=== PATIENT | female | born 1955 ===

== ENCOUNTER → 2020-10-19 08:02 | Outpatient (BNVA) | payer OTHER, SELFPAY | PROVIDERS: PCP Internal Medicine; Visit Provider Internal Medicine Endocrinology, Diabetes & Metabolism | DX: Z13.89 Encounter for screening for other disorder (principal) | CPT/HCPCS: Q3014 ==

== ENCOUNTER 2020-10-27 07:23 | Outpatient (REF) | payer OTHER, SELFPAY ==
[2020-10-27 08:41] LABS: Estimated Average Glucose 131 mg/dL; Hemoglobin A1c % 6.2 %
[2020-10-27 08:48] LABS: Alanine Aminotransferase 13 U/L (0-31); Albumin Level 4.3 g/dL (3.5-5.0); Alkaline Phosphatase 53 U/L (39-117); Anion Gap 14 (12-20); Aspartate Amino Transferase 13 U/L (5-31); Bilirubin Total 0.7 mg/dL (0.0-1.0); Blood Urea Nitrogen 13 mg/dL (9-16); Calcium 9.7 mg/dL (8.4-10.2); Carbon Dioxide 30 mmol/L (22-29); Chloride 100 mmol/L (96-108); Cholesterol 164 mg/dL; Estimated Glomerular Filt Rate > 60; Glucose Fasting 128 mg/dL (60-99); HDL Cholesterol 52 mg/dL; LDL Cholesterol Calculated 92 mg/dl; Potassium 4.3 mmol/l (3.3-5.1); Sodium 140 mmol/L (135-145); Triglycerides 102 mg/dL
[2020-10-27 09:21] LABS: Creatinine Urine 154.58 mg/dL; Microalbum/Creatinine Ratio Ur 21.9 ug/mg cr
[2020-10-27 10:02] LABS: Vitamin B12 672 pg/mL (200-900)
[2020-10-28 10:38] LABS: LDL Cholesterol Direct 95 mg/dL (<100)
== END 2020-10-27 07:24 | disposition home or self-care (01) ==
LOC: HO.LAB 07:23
PROVIDERS: PCP Internal Medicine; Visit Provider Internal Medicine Endocrinology, Diabetes & Metabolism
DX: E11.65 Type 2 diabetes mellitus with hyperglycemia (principal)
CPT/HCPCS: 36415; 80053; 80061; 82043; 82607; 83036; 83721

== ENCOUNTER 2021-05-17 09:08 | Emergency (ER) | payer OTHER, SELFPAY ==
--- NOTE | ~2021-05-17 | XR_ITS ---
EXAMINATION: XR LUMBOSACRAL SPINE CLINICAL INFORMATION: Fall, trauma, pain COMPARISON: None TECHNIQUE: Three views of the lumbosacral spine. FINDINGS: There is normal lumbar segmentation with 5 nonrib-bearing lumbar vertebrae of normal height and normal lumbar lordosis. There is gentle dextrocurvature lumbar spine. There is no lumbar vertebral compression, visible fracture, spondylolisthesis, or destructive process. There are multilevel vertebral spurring. No focal disc narrowing. The SI joints and visualized sacrum are unremarkable. XR/XR lumbar spine 2-3V IMPRESSION: 1. No vertebral compression, visible fracture, or spondylolisthesis. 2. Mild dextrocurvature. Vertebral spurring.
--- NOTE | ~2021-05-17 | XR_ITS ---
EXAMINATION: XR HIP, RIGHT CLINICAL INFORMATION: Fall, trauma, pain COMPARISON: None TECHNIQUE: AP pelvis is performed along with AP and frog-lateral projections right hip. FINDINGS: There is no fracture or dislocation. The bony pelvis appears intact. The SI joints and pubis show no diastases. Soft tissue planes around both hips is unremarkable. Bowel gas appears normal. XR/XR hip RT w PEL1V IMPRESSION: No fracture or dislocation.
[2021-05-17 09:18] VITALS: BP 134/56; PULSE 96; RESP 14; TEMP 36.4; O2SAT 99; BMI 24.7
--- NOTE | 2021-05-17 10:46 | ED.FALL ---
HPI - Fall General Chief Complaint: Fall Stated Complaint: fall - back pain Time Seen by Provider: 05/17/21 09:41 History of Present Illness HPI Narrative: Patient complains of right-sided back and hip pain the back pain radiates to the right foot with no weakness or incontinence or changes to bowel and bladder no head injury She has had similar pain from sciatica on the past The trip and fall was on a wet floor at home where she slipped and fell back onto her buttocks and lower back 5 days ago, there was no head injury no neck pain no weakness no loss of sensation Related Data Previous Rx's Medication Instructions Recorded blood sugar diagnostic #100 ea 10/19/20 dulaglutide 0.75 mg/0.5 mL 0.75 mg SUBCUT QWEEK 30 Days #2.5 10/19/20 subcutaneous pen injector ml (Trulicity) insulin glargine 100 unit/mL (3 10 unit SUBCUT BEDTIME 30 Days #6 10/19/20 mL) subcutaneous pen ml lancets 28 gauge #100 ea 10/19/20 metformin 500 mg tablet,extended 500 mg PO BID 90 Days #180 tab 10/19/20 release 24 hr pen needle, diabetic 31 gauge x #50 ea 10/19/20 5/16 (1st Tier Unifine Pentips) cyanocobalamin (vitamin B-12) 500 500 mcg PO DAILY 30 Days #30 tab 10/25/20 mcg tablet ezetimibe 10 mg tablet 10 mg PO DAILY #90 tab 02/03/21 acetaminophen 500 mg tablet 1,000 mg PO QID PRN #30 tab 05/17/21 cyclobenzaprine 5 mg tablet 5 mg PO TID PRN #14 tab 05/17/21 ibuprofen 600 mg tablet 600 mg PO Q6H PRN #20 tab 05/17/21 lidocaine 5 % topical patch 1 patch TOPICAL DAILY PRN #15 ea 05/17/21 Allergies Allergy/AdvReac Type Severity Reaction Status Date / Time atorvastatin [ATORVASTATIN] AdvReac Intermediate MYALGIA, Unverified 06/23/20 18:27 myalgias lisinopril [LISINOPRIL] AdvReac Intermediate DIZZINESS, Unverified 06/23/20 18:27 diziness Review of Systems Review of Systems: Positive for right-sided back and hip pain Negatives are no headache no head injury no neck pain no numbness or weakness, no difficulty breathing no abdominal pain no dysuria no frequency no incontinence no changes to bowel or bladder, no skin rash, no loss of sensation, no muscle weakness, no fever no chills Yes all other systems are reviewed and are negative [facility] Past Medical History Medical History (Updated 05/17/21 @ 10:59 by RAMON Evangelista) B12 deficiency Diabetes type 2, uncontrolled 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 Microalbuminuria Surgical History (Updated 10/19/20 @ 08:05 by ASHLEY Granados) Hx of eye surgery Hx of myomectomy Hx of tubal ligation Family History Family History (Updated 10/18/20 @ 11:24 by Iram Crespo LPN) Father Hypertension Mother Diabetes Alzheimer disease Maternal Grandmother Diabetes Social History Social History (Updated 10/18/20 @ 11:24 by Iram Crespo LPN) Advance Directives: No Advance Directives Information Provided: No Physical Exam Vital Signs: Vital Signs: Last Vital Signs Temp 97.5 F 05/17/21 09:18 Pulse 96 05/17/21 09:18 Resp 14 05/17/21 09:18 BP 134/56 L 05/17/21 09:18 Pulse Ox 99 05/17/21 09:18 Body Mass Index 24.7 General appearance is no acute distress Head is normocephalic atraumatic Neck is supple and nontender Respiratory no distress Abdomen soft nontender The back had right gluteal and right lower lumbar tenderness, there was some tenderness mildly over the right hip, the skin was normal there was no bruising no wounds no rashes, pain was reproduced with movement and with putting weight on the right leg, sensation and motor function were intact Extremities there was some mild tenderness over the right hip although there was a good range of motion, other extremities were normal with normal range of motion Neuro there was no focal motor or sensory deficit, patient can not ambulate with a mild limp, can come up on her toes and can walk on her heels Course Course Course Narrative: Patient with likely sciatic flare after a fall 5 days ago with no changes to bowel or bladder no weakness x-rays negative of both lumbar spine right hip and pelvis and is discharged home Discharge Plan Discharge Clinical Impression: Sciatica Qualifiers: Laterality: right Qualified Code(s): M54.31 - Sciatica, right side Patient Disposition: Home, Self-Care Additional Instructions: X-rays did not show any broken bone in her hip pelvis or spine Your symptoms are probably a flare up of a pinched nerve in her back sending pain down to her foot Use medications as prescribed and follow closely with primary doctor as physical therapy is sometimes helpful Return any time for weakness, incontinence, any worse condition or any concerns Prescriptions: New lidocaine 5 % adhesive patch,medicated 1 patch topical DAILY PRN (Reason: Back pain) Qty: 15 RF: 0 cyclobenzaprine 5 mg tablet 5 mg PO TID PRN (Reason: muscle spasm) Qty: 14 RF: 0 ibuprofen 600 mg tablet 600 mg PO Q6H PRN (Reason: pain) Qty: 20 RF: 0 acetaminophen 500 mg tablet 1,000 mg PO QID PRN (Reason: pain) Qty: 30 RF: 0 No Action cyanocobalamin (vitamin B-12) 500 mcg tablet 500 mcg PO DAILY 30 Days Qty: 30 RF: 6 ezetimibe 10 mg tablet 10 mg PO DAILY Qty: 90 RF: 1 Trulicity 0.75 mg/0.5 mL pen injector 0.75 mg subcut QWEEK 30 Days Qty: 2.5 RF: 6 insulin glargine 100 unit/mL (3 mL) insulin pen 10 unit subcut BEDTIME 30 Days Qty: 6 RF: 6 metformin 500 mg tablet extended release 24 hr 500 mg PO BID 90 Days Qty: 180 RF: 1 (DME) lancets 28 gauge misc See Rx Instructions ea topical .MEDSUPPLY Qty: 100 RF: 6 (DME) blood sugar diagnostic Strip See Rx Instructions strip Not Applicable BID Qty: 100 RF: 6 (DME) pen needle, diabetic [1st Tier Unifine Pentips] 31 gauge x 5/16 needle See Rx Instructions .ROUTE .MEDSUPPLY Qty: 50 RF: 11
[2021-05-17] MEDS: Acetaminophen 325 MG TABLET 650 MG PO (11:08)
[2021-05-17] MEDS: Ketorolac Tromethamine 15 MG/ML VIAL 30 MG IM (11:10)
== END 2021-05-17 11:18 | disposition home or self-care (01) ==
PROVIDERS: Emergency Provider Emergency Medicine Emergency Medical Services; PCP Internal Medicine
DX: M54.31 Sciatica, right side (principal); E11.9 Type 2 diabetes mellitus without complications; Z79.4 Long term (current) use of insulin
CPT/HCPCS: 72100; 73502; 96372; 99283; 99284; J1885

== ENCOUNTER 2021-05-31 06:25 | Outpatient (REF) | payer OTHER, SELFPAY ==
[2021-05-31 07:01] LABS: MANUAL DIFF FLAG NO
[2021-05-31 07:09] LABS: Basophils Percent Auto 0.3 % (0-2); Eosinophils Absolute Auto 0.2 X10*3/uL (0.0-0.4); Eosinophils Percent Auto 2.1 % (0-4); Hematocrit 36.2 % (37-47); Hemoglobin 12.2 g/dl (12.0-16.0); Imm Gran Abs Auto 0.02 X10*3/uL (0.00-0.03); Imm Gran Pct Auto 0.3 % (0.0-0.4); Lymphocytes Absolute Auto 2.2 X10*3/uL (1.2-4.9); Lymphocytes Percent Auto 29.5 % (20-40); Mean Corpuscular HGB Conc 33.7 g/dl (31.0-35.0); Mean Corpuscular Hemoglobin 29.6 pg (27.0-33.0); Mean Corpuscular Volume 87.9 fL (80-98); Mean Platelet Volume 10.6 fL (9.4-12.3); Monocytes Absolute Auto 0.4 X10*3/uL (0.1-1.2); Monocytes Percent Auto 5.4 % (2-11); Neutrophils Absolute Auto 4.8 X10*3/uL (2.0-8.3); Neutrophils Percent Auto 62.4 % (45-73); Platelet Count 294 X10*3/uL (160-400); Red Blood Count 4.12 X10*6/uL (4.20-5.50); Red Cell Distribution Width 12.6 % (11.0-16.0); White Blood Count 7.6 X10*3/uL (4.8-10.8)
[2021-05-31 07:37] LABS: Alanine Aminotransferase 11 U/L (0-31); Albumin Level 4.1 g/dL (3.5-5.0); Alkaline Phosphatase 46 U/L (39-117); Anion Gap 11 (12-20); Aspartate Amino Transferase 11 U/L (5-31); Bilirubin Total 0.6 mg/dL (0.0-1.0); Blood Urea Nitrogen 13 mg/dL (9-16); Calcium 9.5 mg/dL (8.4-10.2); Carbon Dioxide 29 mmol/L (22-29); Chloride 102 mmol/L (96-108); Cholesterol 162 mg/dL; Estimated Glomerular Filt Rate > 60; Glucose Fasting 173 mg/dL (60-99); HDL Cholesterol 55 mg/dL; LDL Cholesterol Calculated 90 mg/dl; Potassium 4.3 mmol/L (3.3-5.1); Sodium 138 mmol/L (135-145); Total Protein 6.7 g/dL (6.5-8.0); Triglycerides 89 mg/dL
[2021-05-31 08:58] LABS: Folate 12.3 ng/mL (> or = 4.0); Vitamin B12 1612 pg/mL (200-900)
[2021-05-31 09:36] LABS: Creatinine Urine 112.98 mg/dL; Microalbum/Creatinine Ratio Ur 11.5 ug/mg cr
[2021-06-04 13:16] LABS: Vitamin D 25-OH, D2 <4 ng/mL; Vitamin D 25-OH, D3 31 ng/mL; Vitamin D 25-OH, Total 31 ng/mL (30-100)
== END 2021-05-31 06:26 | disposition home or self-care (01) ==
LOC: HO.LAB 06:25
PROVIDERS: PCP Internal Medicine; Visit Provider Internal Medicine
DX: E11.65 Type 2 diabetes mellitus with hyperglycemia (principal); E55.9 Vitamin D deficiency, unspecified; E53.8 Deficiency of other specified B group vitamins; E78.5 Hyperlipidemia, unspecified; D64.9 Anemia, unspecified
CPT/HCPCS: 36415; 80053; 80061; 82043; 82306; 82607; 82746; 85025

== ENCOUNTER 2021-06-19 09:41 | Outpatient (REF) | payer OTHER, SELFPAY | END 2021-06-19 09:42 | disposition home or self-care (01) | LOC: HO.LAB 09:41 | PROVIDERS: PCP Internal Medicine; Visit Provider Internal Medicine | DX: Z20.822 Contact with and (suspected) exposure to COVID-19 (principal) | CPT/HCPCS: C9803; U0003; U0005 ==

== ENCOUNTER 2021-10-28 08:01 | Emergency (ER) | payer OTHER, SELFPAY ==
--- NOTE | ~2021-10-28 | XR_ITS ---
EXAMINATION: XR KNEE, LEFT CLINICAL INFORMATION: Fall. Pain. COMPARISON: None TECHNIQUE: Four views of the left knee. FINDINGS: Bone alignment is normal. There is a transverse nondisplaced fracture of the patella. No other fracture is seen. Joint spaces are normal. There is a large joint effusion. XR/XR knee LT 4V IMPRESSION: Nondisplaced transverse patellar fracture. Large joint effusion.
--- NOTE | 2021-10-28 09:39 | ED_ITS ---
HPI - Extremity Injury (Lower) General Chief Complaint: Extremity Injury, Lower Stated Complaint: Fall/knee pain Time Seen by Provider: 10/28/21 09:19 Source: patient and spanish medical interpreter Mode of arrival: wheelchair Limitations: language barrier History of Present Illness HPI Narrative: 66-year-old female with a history of diabetes, high cholesterol here with reports of left knee pain after a mechanical fall landing directly on the knee yesterday. Tripped on shoelaces. Patient denies any hitting of the head or loss of consciousness. Since the fall the pain has been swollen and painful. No anticoagulation use. Pain is worsened with weight-bearing. Related Data Previous Rx's Medication Instructions Recorded blood sugar diagnostic #100 ea 10/19/20 lancets 28 gauge #100 ea 10/19/20 pen needle, diabetic 31 gauge x #50 ea 10/19/2002/19 (1st Tier Unifine Pentips) cyanocobalamin (vitamin B-12) 500 500 mcg PO DAILY 30 Days #30 tab 10/25/20 mcg tablet acetaminophen 500 mg tablet 1,000 mg PO QID PRN #30 tab 05/17/21 cyclobenzaprine 5 mg tablet 5 mg PO TID PRN #14 tab 05/17/21 ibuprofen 600 mg tablet 600 mg PO Q6H PRN #20 tab 05/17/21 lidocaine 5 % topical patch 1 patch TOPICAL DAILY PRN #15 ea 05/17/21 insulin glargine 100 unit/mL (3 12 unit (0.12 mL) SUBCUT BEDTIME 05/30/21 mL) subcutaneous pen 30 Days #3.6 ml metformin 500 mg tablet,extended 500 mg PO BID 90 Days #180 tab 07/10/21 release 24 hr ezetimibe 10 mg tablet 10 mg PO DAILY #90 tab 07/31/21 dulaglutide 0.75 mg/0.5 mL 0.75 mg (0.5 mL) SUBCUT QWEEK 30 09/05/21 subcutaneous pen injector Days #2.5 ml (Trulicity) naproxen 500 mg tablet 500 mg PO BID #20 tab 10/28/21 oxycodone 5 mg tablet 5 mg PO Q8H PRN #5 tab 10/28/21 Allergies Allergy/AdvReac Type Severity Reaction Status Date / Time atorvastatin [ATORVASTATIN] AdvReac Intermediate MYALGIA, Verified 10/23/21 09:36 myalgias lisinopril [LISINOPRIL] AdvReac Intermediate DIZZINESS, Verified 10/23/21 09:36 diziness Review of Systems Review of Systems: Yes all other systems are reviewed and are negative Constitutional: Constitutional: Reports no additional constitutional complaints, Denies body ache(s), Denies chills, Denies fever(s), Denies headache(s) and Denies weakness Eyes: Eyes: Reports no additional eye complaints and Denies change in vision ENT: Reports system reviewed and no additional complaints, except as documented, Denies dizziness, Denies headache(s), Denies nasal congestion, Denies nasal discharge and Denies neck pain Cardiovascular: Cardiovascular: Reports no additional cardiovascular complaints, Denies chest pain, Denies leg edema and Denies dyspnea Respiratory: Respiratory: Reports no additional respiratory complaints, Denies cough and Denies dyspnea Gastrointestinal: Gastrointestinal: Reports no additional gastrointestinal complaints, Denies abdominal pain, Denies diarrhea, Denies nausea and Denies vomiting Genitourinary: Genitourinary: Reports no additional female genitourinary complaints and Denies urinary incontinence Musculoskeletal: Musculoskeletal: Reports no additional musculoskeletal complaints, Denies back pain, Reports arthralgias, Denies joint swelling, Denies neck pain, Denies numbness and Denies tingling Integumentary/Breasts: Skin/Breast: Reports system reviewed and no additional complaints, except as docu and Denies rash Neurologic: Denies Abnormal speech present, Denies dizziness, Denies headache(s), Denies numbness, Denies tingling and Denies weakness [facility] Past Medical History Attestation statement: The following information was validated with the patient. 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 Microalbuminuria Right hip pain Surgical History Hx of eye surgery Hx of myomectomy Hx of tubal ligation Family History Family History Father Hypertension Mother Diabetes Alzheimer disease Mental health disorder Maternal Grandmother Diabetes Social History Social History Housing: Apartment Patient Tobacco Use Status: Never used Tobacco e-Cigarette/Vaping Use: Never Used Second Hand Smoke Exposure: No Advance Directives: No Advance Directives Information Provided: No service: No 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al status: disabled Physical Exam Vital Signs: Vital Signs: Last Vital Signs Temp 98 F 10/28/21 09:45 Pulse 87 10/28/21 09:45 Resp 19 10/28/21 09:45 BP 152/72 H 10/28/21 09:45 Pulse Ox 99 10/28/21 09:45 BMI result Body Mass Index 27.4 Const: General: cooperative, healthy appearing, comfortable and no acute distress Orientation/consciousness: patient oriented x3 Limitations: no limitations HENMT: Head: Yes normal to inspection Ears: hearing grossly normal bilaterally General nose exam: Normal external nose present Face and sinus: Yes normal facial exam Mouth: Normal oral and palatal mucosa present Throat: Yes posterior oropharynx normal Eyes: General: appearance normal, both eyes and all related structures Pupils: Equal, round and reactive pupils present Neck: Neck: Yes normal visual inspection, Yes full ROM, Yes no lymphadenopathy and Yes no meningeal signs Chest: Chest palpation & inspection: normal inspection of the chest Resp: Effort & Inspection: normal respiratory effort Auscultation: clear to auscultation bilaterally Cardio: Rate: regular rate Rhythm: regular rhythm Peripheral pulses: Peripheral pulses 2+ throughout GI: Inspection: Yes normal to inspection Palpation (GI): Soft to palpation and nontender Auscultation: normal bowel sounds Back/Spine/Pelvis: Thoracic/Lumbar Spine: thoracic and lumbar spine normal to inspection Skin: General skin exam: no rashes or lesions noted Neuro: General: patient oriented x3, no meningeal signs, no focal motor deficits and normal sensation to monofilament Cranial nerves: Yes CN's II-XII intact bilaterally, Yes Equal, round and reactive pupils present, Yes Bilaterally intact EOM present, Yes Nystagmus not present, Yes Normal facial strength present and Yes Midline tongue present Cognition (Neuro): normal cognition Speech: No Abnormal speech present Gait exam (Neuro): Normal gait present Motor exam (neuro): 5/5 motor strength present throughout Sensory Exam: Normal double simultaneous stimulation for sensation Extrem: Other: The left knee there is swelling and tenderness. Range of motion is limited due to pain. Patient is able to extend the extremity. Neurovascularly intact distally General: Yes normal to inspection Course Course Course Narrative: 66-year-old female here with left knee pain after mechanical fall. Will check x-rays, provide analgesia 1045-x-ray show a nondisplaced transverse patellar fracture. There is a large joint effusion which is likely traumatic. The patient we placed in a knee immobilizer and given crutches for ambulation. Discussed case with orthopedics will follow up with patient next week. Reviewed rice. Reviewed worrisome signs and symptoms of when to return to the emergency department. Comfortable discharge home. MDM - Extremity Injury (Lower) Medical Records Attestation: I reviewed the patient's medical records. Lab Data Attestation: I reviewed the patient's lab results. Imaging Data knee xray: Attestation: I personally reviewed and interpreted this imaging study as follows: Radiologist's impression: FINDINGS: Bone alignment is normal. There is a transverse nondisplaced fracture of the patella. No other fracture is seen. Joint spaces are normal. There is a large joint effusion. XR/XR knee LT 4V IMPRESSION: Nondisplaced transverse patellar fracture. Large joint effusion. ? Procedures Procedure Narrative Procedure Narrative: Knee immobilizer, crutches Discharge Plan Discharge Clinical Impression: Left patella fracture Patient Disposition: Home, Self-Care Instructions: Patellar Fracture (ED) Additional Instructions: Use el inmovilizador de rodilla mientras se mueve. Mientras descansa, retire el inmovilizador. Eleve la extremidad sobre almohadas. Aplicar hielo 20 minutos encendido y 20 minutos apagado. Llame a ortopedia el lunes para adriane starr de seguimiento. [place] el medicamento con alimentos. Prescriptions: New naproxen 500 mg tablet 500 mg PO BID Qty: 20 RF: 0 oxycodone 5 mg tablet 5 mg PO Q8H PRN (Reason: pain) Qty: 5 RF: 0 No Action cyanocobalamin (vitamin B-12) 500 mcg tablet 500 mcg PO DAILY 30 Days Qty: 30 RF: 6 metformin 500 mg tablet extended release 24 hr 500 mg PO BID 90 Days Qty: 180 RF: 1 ezetimibe 10 mg tablet 10 mg PO DAILY Qty: 90 RF: 1 Trulicity 0.75 mg/0.5 mL pen injector 0.75 mg subcut QWEEK 30 Days Qty: 2.5 RF: 4 lidocaine 5 % adhesive patch,medicated 1 patch topical DAILY PRN (Reason: Back pain) Qty: 15 RF: 0 cyclobenzaprine 5 mg tablet 5 mg PO TID PRN (Reason: muscle spasm) Qty: 14 RF: 0 ibuprofen 600 mg tablet 600 mg PO Q6H PRN (Reason: pain) Qty: 20 RF: 0 acetaminophen 500 mg tablet 1,000 mg PO QID PRN (Reason: pain) Qty: 30 RF: 0 insulin glargine 100 unit/mL (3 mL) insulin pen 12 unit subcut BEDTIME 30 Days Qty: 3.6 RF: 6 (DME) lancets 28 gauge misc See Rx Instructions ea topical .MEDSUPPLY Qty: 100 RF: 6 (DME) blood sugar diagnostic Strip See Rx Instructions strip Not Applicable BID Qty: 100 RF: 6 (DME) pen needle, diabetic [1st Tier Unifine Pentips] 31 gauge x 5/16 needle See Rx Instructions .ROUTE .MEDSUPPLY Qty: 50 RF: 11 Referrals: Pablito Noble MD [Physician] - 5 days Jolene Montana MD [Primary Care Provider] - 2 days Interventions: ED Discharge Assessment Last Done: 10/28/21 10:51 Discharge Date/Time: 10/28/21 10:52 Print Language: Faroese
[2021-10-28 09:45] VITALS: BP 152/72; PULSE 87; RESP 19; TEMP 36.6; O2SAT 99; BMI 27.4
[2021-10-28] MEDS: Ibuprofen 600 MG TABLET PO (09:50)
== END 2021-10-28 10:52 | disposition home or self-care (01) ==
PROVIDERS: Emergency Provider Internal Medicine; PCP Internal Medicine
DX: S82.035A Nondisplaced transverse fracture of left patella, initial encounter for closed fracture (principal); W01.0XXA Fall on same level from slipping, tripping and stumbling without subsequent striking against object, initial encounter; M25.462 Effusion, left knee; E11.9 Type 2 diabetes mellitus without complications; E78.5 Hyperlipidemia, unspecified; Z79.4 Long term (current) use of insulin; Z79.02 Long term (current) use of antithrombotics/antiplatelets; Z79.899 Other long term (current) drug therapy; Y93.01 Activity, walking, marching and hiking; Y92.9 Unspecified place or not applicable; Y99.9 Unspecified external cause status
CPT/HCPCS: 73564; 99283

== ENCOUNTER 2021-11-03 07:06 | Outpatient (REF) | payer OTHER, SELFPAY ==
--- NOTE | ~2021-11-03 | XR_ITS ---
EXAMINATION: XR KNEE, LEFT CLINICAL INFORMATION: Pain in unspecified knee COMPARISON: 10/28/2021 TECHNIQUE: Four views of the left knee. FINDINGS: Similar to the prior exam there is a transverse lucency in the mid patella suspicious for nondisplaced fracture. There is significant soft tissue swelling and persistent joint effusion. Alignment is anatomic. XR/XR knee LT 2V IMPRESSION: Nondisplaced transverse patellar fracture with persistent joint effusion and soft tissue swelling.
== END 2021-11-03 07:07 | disposition home or self-care (01) ==
LOC: HO.HOSX 07:06
PROVIDERS: Visit Provider Physician Assistant
DX: M25.562 Pain in left knee (principal)
CPT/HCPCS: 73560; 99202

== ENCOUNTER → 2021-11-07 09:55 | Outpatient (BNVA) | payer OTHER, SELFPAY | PROVIDERS: PCP Internal Medicine; Visit Provider Nurse Practitioner Gerontology | DX: E11.65 Type 2 diabetes mellitus with hyperglycemia (principal); E78.5 Hyperlipidemia, unspecified; E53.8 Deficiency of other specified B group vitamins; R80.9 Proteinuria, unspecified; Z79.4 Long term (current) use of insulin | CPT/HCPCS: 82947; 83036; 99212 ==

== ENCOUNTER 2021-11-28 07:28 | Outpatient (REF) | payer OTHER, SELFPAY ==
--- NOTE | ~2021-11-28 | XR_ITS ---
EXAMINATION: XR KNEE, LEFT CLINICAL INFORMATION: Patellar fracture, pain. Follow-up. COMPARISON: Radiographs left knee 11/03/2021, 10/28/2021 TECHNIQUE: AP and lateral views of the left knee. FINDINGS: There is transverse nondisplaced fracture mid patella similar to prior studies. Fracture line is still visible. The effusion and soft tissue swelling are decreased from prior exams. Hoffa's fat pad is unremarkable. There is no acute bony abnormality. XR/XR knee LT 2V IMPRESSION: 1. Nondisplaced transverse hairline fracture patella. 2. Effusion and soft tissue swelling decreased from prior studies.
[2021-11-28 08:19] LABS: MANUAL DIFF FLAG NO
[2021-11-28 09:10] LABS: Basophils Percent Auto 0.4 % (0-2); Eosinophils Absolute Auto 0.3 X10*3/uL (0.0-0.4); Eosinophils Percent Auto 4.3 % (0-4); Hematocrit 38.1 % (37.0-47.0); Hemoglobin 12.5 g/dl (12.0-16.0); Imm Gran Abs Auto 0.01 X10*3/uL (0.00-0.03); Imm Gran Pct Auto 0.1 % (0.0-0.4); Lymphocytes Absolute Auto 2.1 X10*3/uL (1.2-4.9); Lymphocytes Percent Auto 30.6 % (20-40); Mean Corpuscular HGB Conc 32.8 g/dl (31.0-35.0); Mean Corpuscular Hemoglobin 28.5 pg (27.0-33.0); Mean Platelet Volume 10.5 fL (9.4-12.3); Monocytes Absolute Auto 0.4 X10*3/uL (0.1-1.2); Monocytes Percent Auto 6.2 % (2-11); Neutrophils Percent Auto 58.4 % (45-73); Platelet Count 276 X10*3/uL (160-400); Red Blood Count 4.38 X10*6/uL (4.20-5.50); Red Cell Distribution Width 12.5 % (11.0-16.0); White Blood Count 6.8 X10*3/uL (4.8-10.8)
[2021-11-28 09:16] LABS: Cholesterol 198 mg/dL; HDL Cholesterol 51 mg/dL; LDL Cholesterol Calculated 109 mg/dl; Triglycerides 190 mg/dL
[2021-11-28 09:17] LABS: Estimated Average Glucose 200 mg/dL; Hemoglobin A1c % 8.6 %
[2021-11-28 10:10] LABS: Folate 12.2 ng/mL (> or = 4.0); Vitamin B12 1129 pg/mL (200-900)
[2021-11-28 10:12] LABS: Creatinine Urine 278.15 mg/dL; Microalbum/Creatinine Ratio Ur 11.8 ug/mg cr
[2021-12-02 14:25] LABS: Vitamin D 25-OH, D2 <4 ng/mL; Vitamin D 25-OH, D3 34 ng/mL; Vitamin D 25-OH, Total 34 ng/mL (30-100)
== END 2021-11-28 07:29 | disposition home or self-care (01) ==
LOC: HO.HOSX 07:28
PROVIDERS: PCP Internal Medicine; Visit Provider Internal Medicine
DX: E11.40 Type 2 diabetes mellitus with diabetic neuropathy, unspecified (principal); E11.65 Type 2 diabetes mellitus with hyperglycemia; E78.5 Hyperlipidemia, unspecified; E53.8 Deficiency of other specified B group vitamins; E55.9 Vitamin D deficiency, unspecified; D64.9 Anemia, unspecified; M25.562 Pain in left knee; S82.035A Nondisplaced transverse fracture of left patella, initial encounter for closed fracture; X58.XXXA Exposure to other specified factors, initial encounter; Y93.9 Activity, unspecified; Y92.9 Unspecified place or not applicable; Y99.8 Other external cause status; Z88.8 Allergy status to other drugs, medicaments and biological substances
CPT/HCPCS: 36415; 73560; 80061; 82043; 82306; 82607; 82746; 83036; 85025; 99212

== ENCOUNTER 2021-12-19 07:51 | Outpatient (REF) | payer OTHER, SELFPAY ==
--- NOTE | ~2021-12-19 | XR_ITS ---
EXAMINATION: XR KNEE, LEFT CLINICAL INFORMATION: Pain COMPARISON: Previous x-ray November 2021 TECHNIQUE: Two views of the left knee. FINDINGS: The bones are osteopenic. There is continued healing of the transverse nondisplaced patellar fracture. No other fracture is seen. There is soft tissue swelling over the patella and small joint effusion. XR/XR knee LT 2V IMPRESSION: Healing patellar fracture.
== END 2021-12-19 07:52 | disposition home or self-care (01) ==
LOC: HO.HOSX 07:51
PROVIDERS: Visit Provider Physician Assistant
DX: S82.002D Unspecified fracture of left patella, subsequent encounter for closed fracture with routine healing (principal)
CPT/HCPCS: 73560; 99212

== ENCOUNTER → 2022-02-06 09:28 | Outpatient (BNVA) | payer OTHER, SELFPAY | PROVIDERS: PCP Internal Medicine; Visit Provider Nurse Practitioner Gerontology | DX: E11.65 Type 2 diabetes mellitus with hyperglycemia (principal); E78.5 Hyperlipidemia, unspecified; E53.8 Deficiency of other specified B group vitamins; Z79.4 Long term (current) use of insulin | CPT/HCPCS: 82947; 83036; 99212 ==

== ENCOUNTER 2022-06-13 13:39 | Outpatient (REF) | payer OTHER, SELFPAY ==
--- NOTE | ~2022-06-13 | MM_ITS ---
EXAMINATION: MM SCREENING DIGITAL BREAST TOMOSYNTHESIS, BILATERAL CLINICAL INFORMATION: Screening. Asymptomatic. The lifetime risk of breast cancer based on the Tyrer-Cuzick Model is 7%. COMPARISON: Mammography: 02/03/2019, 11/08/2016, 07/26/2015 TECHNIQUE: Digital breast tomosynthesis is performed in both the craniocaudal and mediolateral oblique views along with computer-aided detection (CAD). Synthesized 2D images are generated from the tomosynthesis. FINDINGS: The breasts are heterogeneously dense, which may obscure small masses (ACR BI-RADS breast composition Category c). There are no significant masses, abnormal calcifications, or other abnormalities. Parenchymal pattern is similar to prior studies. There is no developing density or architectural abnormality. The axilla and skin contours are unremarkable. No significant changes. MM/MM tomosynthesis screening BI IMPRESSION: No mammographic evidence of malignancy. ASSESSMENT: BI-RADS 1: Negative RECOMMENDATION: Routine annual mammography screening. This patient's information was entered into a reminder system with a target due date for their next mammogram.
== END 2022-06-13 13:40 | disposition home or self-care (01) ==
LOC: HO.MAMMO 13:39
PROVIDERS: PCP Internal Medicine; Visit Provider Internal Medicine
DX: Z12.31 Encounter for screening mammogram for malignant neoplasm of breast (principal)
CPT/HCPCS: 77063; 77067

== ENCOUNTER 2023-03-20 07:16 | Day surgery (SDC) | payer OTHER, SELFPAY ==
[2023-03-18 13:06] VITALS: BMI 24.7
[2023-03-20 08:00] VITALS: BP 129/66; PULSE 74; RESP 15; TEMP 36.6; O2SAT 96
--- NOTE | 2023-03-20 08:15 | P.CONAN_ITS ---
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 Microalbuminuria Right hip pain Family History Family History Father Hypertension Mother Diabetes Alzheimer disease Mental health disorder Maternal Grandmother Diabetes Family history of problems with anesthesia: No Surgical History Surgical History H/O colonoscopy Hx of eye surgery Hx of myomectomy Hx of tubal ligation History of Problems with Anesthesia: No Social History Social History Housing: Apartment Alcohol intake: never Patient Tobacco Use Status: Never used Tobacco e-Cigarette/Vaping Use: Never Used Second Hand Smoke Exposure: No Use of substances other than those prescribed or required for medical reasons: No Are you DNR?: No Advance Directives: No Advance Directives Information Provided: Yes service: No 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al status: disabled 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 Cognitive needs: No Hearing needs: No Vision needs: No Meds Allergies Allergy/AdvReac Type Severity Reaction Status Date / Time atorvastatin [ATORVASTATIN] AdvReac Intermediate MYALGIA, Verified 03/20/23 07:46 myalgias lisinopril [LISINOPRIL] AdvReac Intermediate DIZZINESS, Verified 03/20/23 07:46 diziness Home Medications Medication Instructions Recorded Confirmed Last Taken Type blood sugar diagnostic (FreeStyle 01/31/23 01/31/23 Unknown History Lite Strips) Exam Exam Date and Time: March 20, 2023 0815 Height,Weight and Vital Signs: Height 5 ft 4 in Weight 65.317 kg Last Vital Signs Temp 97.8 F 06/14/23 08:00 Pulse 74 03/20/23 08:00 Resp 15 03/20/23 08:00 BP 129/66 03/20/23 08:00 Pulse Ox 96 03/20/23 08:00 O2 Del Method Room Air 03/20/23 08:00 Pertinent Lab Results Pertinent Lab Results: Lab Results 03/20/23 Range/Units 08:07 POC Glucose 149 H (60-115) mg/dL Airway Mallampati Class: II TM Dist: >3cm Neck ROM: Full Denture: Upper Loose/Missing/Broken Teeth: Yes (Some missing lower. Denies broken or loose teeth) Heart: RRR Lungs: CTAB Assessment and Plan Assessment Anesthesia Assessment: Anesthesia Plan Discussed and Chart Reviewed Final Anesthetic Review Family History of Problems with Anesthesia: No History of Problems with Anesthesia: No NPO: Yes ASA Class: II Final Preanesthetic Review: No Changes in Pt Med Stat, Meds/Allgs Chart Reviewed, Consent Obtained/Reviewed and Anes Risks/Benef Reviewed Patient Risk: Intermediate Assessment/Block/Sedation in SS: Assess/Block/Sedation-SS Anesthetic Plan Anesthetic Plan: MAC: Disposition: Standard PACU
[2023-03-20] MEDS: Lactated Ringers 1,000 ML 50 ML IVCONT (08:16)
[2023-03-20 08:24] LABS: Glucose, Whole Blood 149 mg/dL (60-115)
--- NOTE | 2023-03-20 08:49 | MHC.SHP ---
Pre-Procedural Eval Section A Date of Service: 03/20/23 Section B Chief Complaint: Encounter for screening for malignant neoplasm Relevant Family History (Specify if Yes): No Relevant Social History: None Present Medications: see Short Stay Collaborative assessment Medical History: Significant History (B12 deficiency Blurry vision Diabetes type 2, uncontrolled Dyslipidemia halfway (current) use of insulin Microalbuminuria Right hip pain) History of Previous Operations: Relevant previous surgery/procedure and date(s) (H/O colonoscopy Hx of eye surgery Hx of myomectomy Hx of tubal ligation) Allergies: Allergies Allergy/AdvReac Type Severity Reaction Status Date / Time atorvastatin [ATORVASTATIN] AdvReac Intermediate MYALGIA, Verified 03/20/23 07:46 myalgias lisinopril [LISINOPRIL] AdvReac Intermediate DIZZINESS, Verified 03/20/23 07:46 diziness Review of Systems Sugical H&P ROS: Negative: Constitution, Cardiovascular, Respiratory, Neurological, Psychiatric, Hem-Onc, Allergic/Immunologic, Gastrointestinal, Genitourinary, Musculoskeletal, Integumentary, Endocrine and Eyes/Ears/Nose/Throat Exam Surgical H&P Exam: Normal: HEENT, Normal: Heart, Normal: Lungs, Normal: Extremities, Normal: Abdomen, Normal: Skin and Normal: Neurological Plan Diagnosis/Plan: Unchanged I have reviewed the history and physical and performed a pertinent physical examination on my patient. No changes have occurred unless specified. Time Spent With Patient Time: Total time managing care of this patient today ____ minutes.
--- NOTE | 2023-03-20 08:50 | W.PM.OPN ---
Operative Note Operative Note Date of Service: 03/20/23 Narrative: Operative Information Procedure Description: Colonoscopy Indication: screening Anesthesia: MAC COLONOSCOPY Instrument: Olympus variable stiffness pediatric scope 190L Colonoscopy Monitoring: Vital signs and clinical assessment, continuous EKG monitoring, Pulse oximetry, Carbon Dioxide monitoring and blood pressure monitoring were done throughout the procedure. Colon withdrawal time was 11 minutes. Procedure: The patient was placed in the left lateral decubitis position and pre-procedure medications were administered. After a digital rectal examination of the ano-rectum, the video colonoscope was inserted into the rectum and advanced through the colon to the cecum/TI. The colonoscope was slowly withdrawn in a retrograde panoramic fashion and the colon mucosa was carefully examined including a retroflexed view of the rectum. Findings and interventions are described below. Procedure Difficulty: moderate due to poor prep Findings: Terminal Ileum-not intubated Cecum:normal Ascending Colon: normal Transverse Colon -normal Descending Colon:normal Sigmoid Colon: normal Rectum: Retroflexion with small internal hemorrhoids, grade I Anorectum - normal Colon preparation: [place] Bowel Preparation Scale Right colon; 1-2 Transverse colon: 1-2 Left colon; 1 (0 = Unprepared colon segment with mucosa not seen due to solid stool that cannot be cleared. 1 = Portion of mucosa of the colon segment seen, but other areas of the colon segment not well seen due to staining, residual stool and/or opaque liquid. 2 = Minor amount of residual staining, small fragments of stool and/or opaque liquid, but mucosa of colon segment seen well. 3 = Entire mucosa of colon segment seen well with no residual staining, small fragments of stool or opaque liquid) Impression and Post Procedure Diagnosis: poor prep internal hemorrhoids Plan: High fiber diet leaflet Avoid straining at stool, epsom salts and sitz bath, anusol supps or cream Repeat Colonoscopy in 6-12 months with complaince to prep or earlier if clinically indicated Above findings were reviewed with the patient and relevant handouts were provided if indicated.
[2023-03-20 09:22] VITALS: BP 156/83; PULSE 86; RESP 16; TEMP 36.3; O2SAT 99
[2023-03-20 09:37] VITALS: BP 148/68; PULSE 80; RESP 16; O2SAT 95
[2023-03-20 09:49] VITALS: BP 124/67; PULSE 78; RESP 16; TEMP 36.3; O2SAT 98
== END 2023-03-20 10:31 | disposition home or self-care (01) ==
PROVIDERS: PCP Internal Medicine; Visit Provider Internal Medicine Gastroenterology
PROC: 0DJD8ZZ Inspection of Lower Intestinal Tract, Via Natural or Artificial Opening Endoscopic (ICD-10-PCS; CPT 45378; principal; 2023-03-20 09:20)
DX: Z12.11 Encounter for screening for malignant neoplasm of colon (principal); K64.0 First degree hemorrhoids; E53.8 Deficiency of other specified B group vitamins; E11.9 Type 2 diabetes mellitus without complications; E78.5 Hyperlipidemia, unspecified; Z79.4 Long term (current) use of insulin; H53.8 Other visual disturbances; R80.9 Proteinuria, unspecified; M25.551 Pain in right hip; Z88.8 Allergy status to other drugs, medicaments and biological substances
CPT/HCPCS: G0121; 82947

== ENCOUNTER 2023-06-19 13:52 | Outpatient (REF) | payer OTHER, SELFPAY ==
--- NOTE | ~2023-06-19 | MM_ITS ---
EXAMINATION: MM SCREENING DIGITAL BREAST TOMOSYNTHESIS, BILATERAL CLINICAL INFORMATION: Screening. Asymptomatic. COMPARISON: Mammography: This study is compared with prior exams dating back to 2015. TECHNIQUE: Digital breast tomosynthesis is performed in both the craniocaudal and mediolateral oblique views along with computer-aided detection (CAD). Synthesized 2D images are generated from the tomosynthesis. FINDINGS: The breasts are extremely dense, which lowers the sensitivity of mammography (ACR BI-RADS breast composition Category d). There are no significant masses, abnormal calcifications, or other abnormalities. MM/MM tomosynthesis screening BI IMPRESSION: No mammographic evidence of malignancy. ASSESSMENT: BI-RADS BI-RADS 1 - Negative RECOMMENDATION: Routine annual mammography screening. 1 year F/U This examination should not preclude the clinical evaluation of a suspicious palpable abnormality. This patient's information was entered into a reminder system with a target due date for their next mammogram.
== END 2023-06-19 13:53 | disposition home or self-care (01) ==
LOC: HO.MAMMO 13:52
PROVIDERS: PCP Internal Medicine; Visit Provider Internal Medicine
DX: Z12.31 Encounter for screening mammogram for malignant neoplasm of breast (principal)
CPT/HCPCS: 77063; 77067

== ENCOUNTER → 2023-06-19 14:15 | Outpatient (BNV) | payer OTHER, SELFPAY | PROVIDERS: PCP Internal Medicine; Visit Provider Radiology Diagnostic Radiology | DX: Z12.31 Encounter for screening mammogram for malignant neoplasm of breast (principal) | CPT/HCPCS: 77063; 77067 ==

== ENCOUNTER 2023-11-14 14:26 | Outpatient (AMB) | payer OTHER, SELFPAY ==
--- NOTE | 2023-11-14 14:54 | MHC.PC.OV ---
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 Accompanied by: Friend Allergies atorvastatin [ATORVASTATIN] Adverse Reaction (Intermediate, Verified 11/14/23 15:21) MYALGIA, myalgias lisinopril [LISINOPRIL] Adverse Reaction (Intermediate, Verified 11/14/23 15:21) DIZZINESS, diziness Medication List - Last Reconciled 11/14/23 by Jolene Farah MD acetaminophen 1,000 mg (2 x 500 mg) PO QID PRN blood sugar diagnostic (FreeStyle Lite Strips) As directed blood sugar diagnostic (FreeStyle Lite Strips) As directed to test 3 times a day dulaglutide (Trulicity) 1.5 mg (0.5 mL) subcut QWEEK 28 days ezetimibe 10 mg PO DAILY flash glucose sensor (FreeStyle [place]onson 14 Day Sensor kit) As directed insulin glargine 16 units (0.16 mL) subcut BEDTIME 90 days lancets 3 times a day metformin ER 1,000 mg (2 x 500 mg) PO BID 90 days pen needle, diabetic (1st Tier Unifine Pentips) once a day Tobacco use date assessed: 11/14/23 Fall risk assessment: No Falls in past year Last assessed Fall Risk: 11/14/23 Dental Screening Dental Screen Date: 11/14/23 Did you have a dental visit in the last 12 months?: No Did you have a dental problem in the last 6 months where you did not have access to dental care?: No Was dental information given to patient?: Patient has dentist HPI HPI Comments History of Present Illness Details This is a 68-year-old female with diabetes mellitus type 2 on long-term current use of insulin that comes accompanied by friend for her physical exam. Last mammogram was June 2023. Last colonoscopy was March 2023. A1c is elevated and she was out of Trulicity. No need for Pap smear due to age. No chest pain or shortness of breath. [facility] Medical History Blurry vision Right hip pain B12 deficiency snf (current) use of insulin Diabetes type 2, uncontrolled Dyslipidemia Microalbuminuria Surgical History H/O colonoscopy Hx of myomectomy Hx of eye surgery Hx of tubal ligation Family History Father Hypertension Mother Diabetes Alzheimer disease Mental health disorder Maternal Grandmother Diabetes Social History Housing: Apartment Alcohol intake: never Patient Tobacco Use Status: Never used Tobacco e-Cigarette/Vaping Use: Never Used Second Hand Smoke Exposure: No service: No 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al status: disabled 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 1. Little interest or pleasure in doing things: not at all 2. Feeling down, depressed, or hopeless: not at all 3. Trouble falling or staying asleep, or sleeping too much: not at all 4. Feeling tired or having little energy: not at all 5. Poor appetite or overeating: not at all 6. Feeling bad about yourself - or that you are a failure or have let yourself or your family down: not at all 7. Trouble concentrating on things, such as reading the newspaper or watching television: not at all 8. Moving or speaking so slowly that other people could have noticed. Or the opposite - being so fidgety or restless that you have been moving around a lot more than usual: not at all 9. Thoughts that you would be better off or of hurting yourself in some way: not at all Total score: 0 Depression Screening Interpretation: Negative Depression Screening Done: Yes 52327 - PHQ-9 Billing: Yes Source: Developed by Drs. Dano Fontaine, Vickie Holguin, Ross Perla and colleagues, with an educational baljit from [employer]. Thrive Questionnaire Date Thrive assessed: 11/14/23 I am a: Patient What is your living situation today?: I have a steady place to live Within the past 12 months, did the food you bought not last and you didn't have the money to get more?: Never true Within the past 12 months, did you worry whether your food would run out before you got money to buy more?: Never true Do you have trouble paying for medicines?: No Do you have trouble getting transportation to medical appointments?: No Do you have trouble paying your heating and electricity bill?: No Do you have trouble taking care of your child, family member or friend?: No Do you have trouble with day-to-day activities such as bathing, preparing meals, shopping, managing finances, etc.?: No Are you currently unemployed and looking for a job?: No Are you interested in more education?: No Please select the resources that you would like help with: None Currently or been in a relationship where the following occur: no concerns reported THRIVE Score: 0 AUDIT C Alcohol Use Questionnaire (AUDIT-C) 1. How often do you have a drink containing alcohol?: Never Total Score: 0 Score Reviewed/Action Taken: No YELENA-7 AMB Questionnaire YELENA-7 Date YELENA - 7 assessed: 11/14/23 Feeling nervous, anxious, or on edge: 0 = Not at all Not being able to stop or control worryin = Not at all Worrying too much about different things: 0 = Not at all Trouble relaxin = Not at all Being so restless that it is hard to sit still: 0 = Not at all Becoming easily annoyed or irritable: 0 = Not at all Feeling afraid as if something awful might happen: 0 = Not at all Total YELENA-7 score (0-4 normal; 5-9 mild; 10-14 moderate; 15-21 severe): 0 Source: Developed by Drs. Dano Fontaine, Vickie Holguin, Ross Perla and colleagues, with an educational baljit from [employer]. YELENA-7 Assessment Billing YELENA-7 Assessment Tool: YELENA-7 Assessment 61006 Review of Systems Const All systems reviewed & are unremarkable except as noted in HPI and below Eyes Reports no additional complaints, Denies change in vision and Denies other visual disturbances ENT Denies change in voice, Denies nasal discharge and Denies sinus pain Card Denies chest pain at rest, Denies chest pain with activity, Denies edema, Denies irregular heart rhythm, Denies claudication, Denies dyspnea, Denies dyspnea on exertion, Denies orthopnea, Denies paroxysmal nocturnal dyspnea and Denies slow heart rate Resp Denies cough, Denies dyspnea and Denies dyspnea on exertion GI Denies abdominal pain, Denies change in bowel habits, Denies excessive flatus, Denies nausea and Denies vomiting Denies urinary incontinence, Denies urinary hesitancy and Denies urinary urgency Musc Denies abnormal gait, Denies atrophy, Denies deformity and Denies limited range of motion Skin/Breast Denies bleeding lesions, Denies changing lesions and Denies rash Neuro Denies abnormal gait, Denies behavioral changes, Denies confusion and Denies lack of coordination Psych Denies behavioral changes and Denies confusion Physical exam (Primary Care) Vital Signs: Last Vital Signs BP 140/62 H 11/14/23 14:55 BMI result Body Mass Index 25.4 Tobacco/Smoking Status: Tobacco use Status Tobacco use date assessed 11/14/23 11/14/23 15:01 Patient Tobacco Use Status Never used Tobacco 11/14/23 15:01 e-Cigarette/Vaping Use Never Used 11/14/23 15:01 PHQ-9: PHQ-9 Score PHQ-9: Total score 0 11/14/23 15:49 Depression Screening Interpretation: Negative Thrive Assessment: Date of Thrive Assessment Date Thrive assessed 11/14/23 11/14/23 15:01 Currently or been in a relationship where the following occur: no concerns reported Const General: No confusion Orientation/consciousness: patient oriented x3 and No confusion HENMT Head: Yes normal to inspection, Yes normocephalic and Yes atraumatic Ears: external ears normal Eyes General: appearance normal, both eyes and all related structures Eyelids: Yes eyelids normal Conjunctivae: conjunctivae normal Neck Neck: Yes normal visual inspection and Yes supple Resp Effort & Inspection: normal respiratory effort Auscultation: clear to auscultation bilaterally Cardio Jugular venous distension: no JVD Rate: regular rate Rhythm: regular rhythm Heart sounds: S1 normal heart sound present and S2 normal heart sound present GI Inspection: Yes normal to inspection Palpation (GI): Soft to palpation and nontender Auscultation: normal bowel sounds Skin General skin exam: no rashes or lesions noted Neuro General: patient oriented x3, no focal motor deficits and No confusion Extrem General: Yes full ROM Psych Appearance: grossly normal Results AMB Hemoglobin A1c AMB Hemoglobin A1c 8.9 % Last Edit by ASHLEY Carpenter on 11/14/23 15:21 Immunizations pneumoc 20-scott conj-dip cr(PF) 0.5 mL IM syringe Performing Provider: Jolene Farah MD Performing Location: [facility] Administered by: ASHLEY Carpenter on 11/14/23 15:49 Dose Route Admin Location Dispensed Lot Number Expiration Date NDC Slide Attendant 0.5 mL IM Right Deltoid 0.5 mL [id number] 12/05/24 5827-5648-31 [employer] VIS Given Date VIS Provided VIS Publication Date 11/14/23 Single Vaccine 21 Eligibility Eligibility Date Funding Source Not VFC Eligible 11/14/23 Private tetanus-diphtheria toxoids-Td 2 Lf unit-2 Lf unit/0.5 mL IM suspension Performing Provider: Jolene Farah MD Performing Location: [facility] Administered by: ASHLEY Carpenter on 11/14/23 15:49 Dose Route Admin Location Dispensed Lot Number Expiration Date NDC Slide Attendant 0.5 mL IM Left Deltoid 0.5 mL [id number] 02/10/24 [id number] [employer] VIS Given Date VIS Provided VIS Publication Date 11/14/23 Single Vaccine 21 Eligibility Eligibility Date Funding Source Not VFC Eligible 11/14/23 State funds Results Reviewed Results Reviewed: Laboratory Last Values Hgb A1c (Clinic) 8.9 % (4.0-6.0) H 11/14/23 15:13 Assessment and Plan Assessment & Plan (1) Physical exam: Code(s): Z00.00 - Encounter for general adult medical examination without abnormal findings Plan: Repeat in a year. (2) Diabetes mellitus: Code(s): E11.9 - Type 2 diabetes mellitus without complications Plan: Continue insulin. Continue Trulicity. A1c goal is equal or less than 7%. Orders: Orders Microalbumin, Random (w Creat) 11/14/23 E11.9 - Type 2 diabetes mellitus without complications Comprehensive [place]. Panel Fast 11/14/23 E11.65 - Type 2 diabetes mellitus with hyperglycemia Pneumococcal 20 Immunization 11/14/23 Z23 - Encounter for immunization AMB Hemoglobin A1c 11/14/23 E11.9 - Type 2 diabetes mellitus without complications Lipid Panel 11/14/23 E78.5 - Hyperlipidemia, unspecified Vitamin D 25-OH Total 11/14/23 E55.9 - Vitamin D deficiency, unspecified XR DEXA axial skeleton 11/14/23 N95.9 - Unspecified menopausal and perimenopausal disorder Td State Immunization 11/14/23 Z23 - Encounter for immunization Coding Level of Care Code Est Pt Prev Care >65y(84542) Diagnoses Physical exam Z00.00 Diabetes mellitus E11.9 Additional Codes YELENA-7 Assessment Billing - YELENA-7 Assessment Tool: YELENA-7 Assessment 97153 ([id number]) Time Spent (min) 32
[2023-11-14 14:55] VITALS: BP 140/62; BMI 25.4
== END 2023-11-14 15:34 | disposition home or self-care (01) ==
PROVIDERS: PCP Internal Medicine; Visit Provider Internal Medicine
DX: Z23 Encounter for immunization (principal); E11.9 Type 2 diabetes mellitus without complications
CPT/HCPCS: 83036; 90471; 90677; 90714; 99397

== ENCOUNTER 2023-11-27 07:56 | Outpatient (REF) | payer OTHER, SELFPAY ==
--- NOTE | ~2023-11-27 | MM_ITS ---
EXAMINATION: BONE DENSITOMETRY CLINICAL INDICATION: Unspecified menopausal and perimenopausal disorder. COMPARISON: This is the patient's baseline examination. TECHNIQUE: Using a [employer] DXA System (software version: 13.1) manufactured by [employer], dual-energy x-ray absorptiometry was performed of the lumbar spine and left hip. The images are of good technical quality. Summary results are attached. FINDINGS: LEFT FEMUR, NECK: BMD 0.759 g/cm2, Z-score -0.5, T-score -2.0, osteopenia. LEFT FEMUR, TOTAL: BMD 0.787 g/cm2, Z-score -0.5, T-score -1.8, osteopenia. AP SPINE L1-L4: BMD 0.834 g/cm2, Z-score -1.3, T-score -2.9, osteoporosis. IDENTIFIED RISK FACTORS: Menopause, history of fracture (adult), secondary osteoporosis (type 1 diabetes). HISTORY OF FRACTURE: Other. MEDICATIONS: None listed. MM/XR DEXA axial skeleton IMPRESSION: 1. DIAGNOSIS: Osteoporosis based on the lowest T-score value of -2.9 in the lumbar spine applying World Health Organization criteria. 2. 10-YEAR FRACTURE RISK PREDICTION, FRAX: According to the guidelines, FRAX calculation should only be performed on patients in the osteopenia bone density category. Therefore, FRAX was not performed on this patient. 3. Treatment Recommendations: NOF guidelines recommend consideration for treatment in postmenopausal women and men age 50 and older presenting with the following: -A hip or vertebral (clinical or morphometric) fracture. -T-score less than or equal to -2.5 at the femoral neck or spine after appropriate evaluation to exclude secondary causes. -Low bone mass at the hip or spine and a 10-year fracture probability by FRAX of greater than or equal to 3% for hip fracture or greater than or equal to 20% for major osteoporotic fracture based on the [place] adapted WHO algorithm. 4. Other Recommendations: All treatment decisions require clinical judgment and consideration of individual patient factors, including patient preferences, comorbidities, previous drug use, risk factors not captured in the FRAX model (e.g. frailty, falls, vitamin D deficiency, increased bone turnover, interval significant decline in bone density) and possible under or overestimation of fracture risk by FRAX. Additional medical evaluation for secondary cause of low bone mineral density may be appropriate. FUTURE SCAN RECOMMENDATION: People with diagnosed cases of osteoporosis or at high risk for fracture should have regular bone mineral density tests. For patients eligible for Medicare, routine testing is allowed once every 2 years. The testing frequency can be increased to one year for patients who have rapidly progressing disease, those who are receiving or discontinuing medical therapy to restore bone mass, or have additional risk factors.
== END 2023-11-27 07:57 | disposition home or self-care (01) ==
LOC: HO.MAMMO 07:56
PROVIDERS: PCP Internal Medicine; Visit Provider Internal Medicine
DX: Z13.820 Encounter for screening for osteoporosis (principal); N95.9 Unspecified menopausal and perimenopausal disorder
CPT/HCPCS: 77080

== ENCOUNTER 2023-12-24 10:03 | Emergency (ER) | payer OTHER, SELFPAY ==
--- NOTE | ~2023-12-24 | CT_ITS ---
EXAMINATION: CT ABDOMEN AND PELVIS WITHOUT CONTRAST CLINICAL INFORMATION: Upper abdominal pain COMPARISON: Ultrasound abdomen earlier today TECHNIQUE: Multidetector volumetric imaging was performed from the superior aspect of the liver through the pubic symphysis. Sagittal and coronal reformatted images were obtained on the technologist's workstation. This CT examination was performed using dose optimization techniques as appropriate, variously including the following: *Automated exposure control *Adjustment of mA and/or kV according to patient size (this includes techniques or standardized protocols for targeted exams where dose is matched to indication/reason for exam; i.e. extremities or head) *Use of iterative reconstruction technique DLP: 442 mGy-cm FINDINGS: LUNG BASES: Moderate coronary calcium is present. COPD is seen. Peribronchial thickening is noted some mild traction bronchiectasis is present at the lung bases. No suspicious lung masses or pleural effusions LIVER, GALLBLADDER, AND BILIARY TREE: The liver measures 19.9 cm in length but demonstrates normal attenuation and shape. No focal hepatic lesion or biliary ductal dilatation is present. The gallbladder is unremarkable with no evidence of radiopaque gallstones, gallbladder wall thickening, or obvious pericholecystic inflammatory changes. PANCREAS: Unremarkable. SPLEEN: Unremarkable. ADRENAL GLANDS: Unremarkable. KIDNEYS AND URETERS: The kidneys are normal in size, shape, and attenuation. No hydronephrosis, hydroureter, or calculi seen. No perinephric stranding. BLADDER: Unremarkable. GASTROINTESTINAL TRACT: The small and large bowel are unremarkable aside from sigmoid diverticulosis without diverticulitis. The appendix is unremarkable. ABDOMINAL WALL: No significant hernia is appreciated. LYMPH NODES: No retroperitoneal lymphadenopathy. VASCULAR: Calcific atherosclerotic changes are present in the aorta and iliofemoral vessels. There is no evidence of an abdominal aortic aneurysm. PELVIC VISCERA: The uterus is retroverted and contains calcified fibroids. The adnexa are unremarkable. No free pelvic fluid is seen. OSSEOUS STRUCTURES: Degenerative changes are present at L5-S1. CT/CT abdomen pelvis wo IV con IMPRESSION: 1. A cause for the patient's upper abdominal pain has not been found. 2. Incidental note made of COPD, hepatomegaly, sigmoid diverticulosis, calcified uterine fibroids and degenerative changes L5-S1. Fleischner guidelines were followed.
--- NOTE | ~2023-12-24 | US_ITS ---
EXAMINATION: US ABDOMEN LIMITED CLINICAL INFORMATION: Epigastric and right upper cord pain. COMPARISON: None available. TECHNIQUE: Real-time imaging of the right upper quadrant abdominal viscera. FINDINGS: PANCREAS: Normal. LIVER: Normal. The liver is normal in size. The liver contour is normal. Parenchymal echogenicity is normal. No focal hepatic lesion. There is no intrahepatic biliary duct dilatation seen. GALLBLADDER: Gallbladder wall thickness is 0.2. The gallbladder is physiologically distended without evidence of stones, sludge, polyps, wall thickening or pericholecystic fluid. COMMON BILE DUCT: Normal in caliber measuring 0.6 cm in diameter. RIGHT KIDNEY: Normal. No hydronephrosis. No renal calculi or focal parenchymal lesions. The kidney measures 10.4 cm in maximum dimension. FREE FLUID: None. US/US abdomen limited IMPRESSION: Unremarkable limited abdomen ultrasound.
[2023-12-24 10:11] VITALS: BP 124/83; PULSE 104; RESP 18; TEMP 36; O2SAT 100; BMI 24.2
[2023-12-24 12:03] LABS: Glucose, Whole Blood 219 mg/dL (60-115)
[2023-12-24 12:08] LABS: Basophils Percent Auto 0.2 % (0-2); Eosinophils Percent Auto 0.2 % (0-4); Hematocrit 40.9 % (37.0-47.0); Hemoglobin 13.8 g/dl (12.0-16.0); Imm Gran Abs Auto 0.05 X10*3/uL (0.00-0.03); Imm Gran Pct Auto 0.5 % (0.0-0.4); Lymphocytes Absolute Auto 1.5 X10*3/uL (1.2-4.9); Lymphocytes Percent Auto 13.9 % (20-40); MANUAL DIFF FLAG NO; Mean Corpuscular HGB Conc 33.7 g/dl (31.0-35.0); Mean Corpuscular Hemoglobin 29.1 pg (27.0-33.0); Mean Corpuscular Volume 86.3 fL (80.0-98.0); Mean Platelet Volume 9.6 fL (9.4-12.3); Monocytes Absolute Auto 0.3 X10*3/uL (0.1-1.2); Monocytes Percent Auto 3.1 % (2-11); Neutrophils Absolute Auto 8.8 x10*3/uL (2.0-8.3); Neutrophils Percent Auto 82.1 % (45-73); Platelet Count 416 X10*3/uL (160-400); Red Blood Count 4.74 X10*6/uL (4.20-5.50); Red Cell Distribution Width 12.7 % (11.0-16.0); White Blood Count 10.7 X10*3/uL (4.8-10.8)
[2023-12-24 12:09] LABS: Appearance Urine Clear; Color Urine Dark Yellow; Glucose Urine UA 250 mg/dL (Negative); Leukocyte Esterase Urine Trace (Negative); Nitrite Urine Negative (Negative); PH 6.5 (5.0-9.0); Specific Gravity - Urine >= 1.030 (1.005-1.025); UMIC TRIGGER UACC YES; Urine Blood Negative (Negative); Urine Ketones 15 mg/dL (Negative); Urine Protein 300 (3+) mg/dL (Neg-Trace)
[2023-12-24 12:14] LABS: Bacteria Urine None Seen (None Seen); Hyaline Casts Urine 0-2 /LPF (0-2); RBC Urine 0-2 /HPF (0-2); WBC Urine 0-5 /HPF (0-5)
[2023-12-24 12:23] LABS: Alanine Aminotransferase 10 U/L (0-31); Albumin Level 4.3 g/dL (3.5-5.0); Alkaline Phosphatase 88 U/L (39-117); Anion Gap 14 (12-20); Aspartate Amino Transferase 12 U/L (5-31); Bilirubin Total 0.7 mg/dL (0.0-1.0); Blood Urea Nitrogen 15 mg/dL (9-16); Calcium 9.7 mg/dL (8.4-10.2); Carbon Dioxide 27 mmol/L (22-29); Chloride 100 mmol/L (96-108); Creatinine Clr Calc Pharmacy 64.7; Estimated Glomerular Filt Rate > 60; Glucose Random 215 mg/dL (60-115); Lipase 18 U/L (8-78); Potassium 4.2 mmol/L (3.3-5.1); Sodium 137 mmol/L (135-145)
--- NOTE | 2023-12-24 12:36 | ED.GENADULT ---
HPI - General Adult General Chief complaint: Abdominal Pain Stated complaint: Back Pain No Injury Time Seen by Provider: 12/24/23 20:34 Source: patient Mode of arrival: ambulatory Limitations: no limitations History of Present Illness HPI narrative: Patient diabetic comes here for nausea vomiting epigastric pain since 03:00 vomited multiple times followed by epigastric pain no diarrhea feels weak unable to hold anything down no other family member sick POC 219 Related Data Home Medications Medication Instructions Recorded Confirmed blood sugar diagnostic (FreeStyle 01/31/23 01/31/23 Lite Strips) Previous Rx's Medication Instructions Recorded acetaminophen 500 mg tablet 1,000 mg (2 x 500 mg) PO QID PRN 01/31/23 pain #30 tabs blood sugar diagnostic (FreeStyle #100 ea 09/24/23 Lite Strips) insulin glargine 100 unit/mL (3 16 unit (0.16 mL) subcut BEDTIME 09/24/23 mL) subcutaneous pen 90 days #14.4 mL flash glucose sensor (FreeStyle #1 ea 10/10/23 Bronson 14 Day Sensor kit) lancets 28 gauge #100 ea 10/10/23 pen needle, diabetic 31 gauge x #50 ea 10/10/23 5/16 (1st Tier Unifine Pentips) metformin 500 mg tablet,extended 1,000 mg (2 x 500 mg) PO BID 90 11/08/23 release 24 hr days #360 tabs ezetimibe 10 mg tablet 10 mg PO DAILY #90 tabs 11/29/23 dulaglutide 3 mg/0.5 mL 3 mg (0.5 mL) subcut QWEEK 90 days 12/10/23 subcutaneous pen injector #6.5 mL (Trulicity) ondansetron 4 mg disintegrating 4 mg PO Q6-8H PRN nausea and 12/24/23 tablet vomiting #10 tabs Allergies Allergy/AdvReac Type Severity Reaction Status Date / Time atorvastatin [ATORVASTATIN] AdvReac Intermediate MYALGIA, Verified 12/24/23 10:14 myalgias lisinopril [LISINOPRIL] AdvReac Intermediate DIZZINESS, Verified 12/24/23 10:14 diziness Review of Systems Review of Systems: Yes all other systems are reviewed and are negative PMFSH Past Medical History Medical History Blurry vision Right hip pain B12 deficiency care home (current) use of insulin Diabetes type 2, uncontrolled Dyslipidemia Microalbuminuria Surgical History H/O colonoscopy Hx of myomectomy Hx of eye surgery Hx of tubal ligation Family History Family History Father Hypertension Mother Diabetes Alzheimer disease Mental health disorder Maternal Grandmother Diabetes Social History Social History Housing: Apartment Alcohol intake: never Patient Tobacco Use Status: Never used Tobacco Smoked in Last 30 Days: No e-Cigarette/Vaping Use: Never Used Second Hand Smoke Exposure: No Use of substances other than those prescribed or required for medical reasons: No Advance Directives: No service: No 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al status: disabled 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 Oriented X3. No acute distress. Eyes: No pallor or icterus ENT: Pharynx normal. Oral Mucosa moist Neck: Normal inspection. Neck supple. CVS: Normal heart rate and rhythm. Pulses normal. Respiratory: No respiratory distress. Equal air entry bilateral, no wheezing/rales/rhonchi Abdomen: Soft , tender in epigastric area Bowel sounds are present, no mass palpable, no CVA tenderness Skin: Skin warm and dry. Normal skin color. Normal skin turgor. Extremities: No lower extremity edema. Neuro: Oriented X 3. No motor deficit. Course Course Course Narrative: This is an RME: Additional HPI, ROS, PE not included below will be deferred to primary provider. This is a 68-year-old female, with a history diabetes, presenting to the emergency department complaints of nausea with vomiting since 3:00 a.m. this morning. She is also reporting left upper quadrant pain. Denies history of abdominal surgeries. Patient reporting worsening nausea. Well medicate with Zofran. Patient does have mild tenderness palpation in the epigastrium and right upper quadrant. Patient also reports that she started to develop chest pain while waiting in the waiting room, troponin and EKG added as well as chest x-ray. Plan: Labs, UA, Zofran 4 mg, ultrasound abdomen Medications Administered Discontinued Medications Generic Name Dose Route Start Last Admin Trade Name Freq PRN Reason Stop Dose Admin Sodium Chloride 1,000 mls @ 999 mls/hr 12/24/23 20:58 12/24/23 21:11 Ns IV 12/24/23 21:58 999 mls/hr .Q1H1M ONE Administration Morphine Sulfate 4 mg 12/24/23 20:58 12/24/23 21:18 Morphine Sulfate 4 Mg/Ml Cartridge IVPUSH 12/24/23 20:59 4 mg ONCE ONE Administration Protocol Ondansetron HCl 4 mg 12/24/23 12:41 12/24/23 15:33 Ondansetron Odt 4 Mg Tab.Rapdis TRANSLINGU 12/24/23 12:42 4 mg ONCE ONE Administration Medical Decision Making Medical Decision Making [facility] Narrative: Patient has acute nausea vomiting with epigastric pain workup negative for cholecystitis/gallstones/kidney stone/pancreatitis patient of received IV fluids and nausea medication feeling much better will discharge patient home taking p.o. fluids Differential Diagnosis Differential Diagnoses: The differential diagnosis associated with the presentation includes Pancreatitis/gastritis/gastroenteritis/cholecystitis Lab Data [facility] Lab Attestation statement: I reviewed the patient's lab results. 12/24/23 11:59 12/24/23 11:59 Labs: Lab Results 12/24/23 12/24/23 12/24/23 Range/Units 11:56 11:59 12:02 WBC 10.7 (4.8-10.8) X10*3/uL RBC 4.74 (4.20-5.50) X10*6/uL Hgb 13.8 (12.0-16.0) g/dl Hct 40.9 (37.0-47.0) % MCV 86.3 (80.0-98.0) fL MCH 29.1 (27.0-33.0) pg MCHC 33.7 (31.0-35.0) g/dl RDW 12.7 (11.0-16.0) % Plt Count 416 H D (160-400) X10*3/uL MPV 9.6 (9.4-12.3) fL Immature Gran % (Auto) 0.5 H (0.0-0.4) % Neut % (Auto) 82.1 H (45-73) % Lymph % (Auto) 13.9 L (20-40) % [place] % (Auto) 3.1 (2-11) % Eos % (Auto) 0.2 (0-4) % Baso % (Auto) 0.2 (0-2) % Lymph # (Auto) 1.5 (1.2-4.9) X10*3/uL [place] # (Auto) 0.3 (0.1-1.2) X10*3/uL Eos # (Auto) 0.0 (0.0-0.4) X10*3/uL Baso # (Auto) 0.0 (0.0-0.2) X10*3/uL Abs Immat Gran (auto) 0.05 H (0.00-0.03) X10*3/uL Absolute Neuts (auto) 8.8 H (2.0-8.3) x10*3/uL Absolute Nucleated RBC 0.000 (0.0-0.012) X10*3/uL Nucleated RBC % (auto) 0.0 (0.0-0.2) /100WBC Sodium 137 (135-145) mmol/L Potassium 4.2 (3.3-5.1) mmol/L Chloride 100 (96-108) mmol/L Carbon Dioxide 27 (22-29) mmol/L Anion Gap 14 (12-20) BUN 15 (9-16) mg/dL Creatinine 0.79 (0.5-1.4) mg/dL Estim Creat Clear Calc 64.7 Estimated GFR > 60 POC Glucose 219 H (60-115) mg/dL Random Glucose 215 H (60-115) mg/dL Calcium 9.7 (8.4-10.2) mg/dL Total Bilirubin 0.7 (0.0-1.0) mg/dL AST 12 (5-31) U/L ALT 10 (0-31) U/L Alkaline Phosphatase 88 (39-117) U/L Troponin I High Sens (<3.5-17.0) ng/L Total Protein 8.0 (6.5-8.0) g/dL Albumin 4.3 (3.5-5.0) g/dL Lipase 18 (8-78) U/L Urine Color Dark Yellow Urine Appearance Clear Urine pH 6.5 (5.0-9.0) Ur Specific [place] >= 1.030 H (1.005-1.025) Urine Protein 300 (3+) H (Neg-Trace) mg/dL Urine Glucose (UA) 250 H (Negative) mg/dL Urine Ketones 15 (Negative) mg/dL Urine Blood Negative (Negative) Urine Nitrite Negative (Negative) Ur Leukocyte Esterase Trace H (Negative) Urine RBC 0-2 (0-2) /HPF Urine WBC 0-5 (0-5) /HPF Ur Squamous Epith Cells 6-10 (0-2) /HPF Urine Bacteria None Seen (None Seen) Hyaline Casts 0-2 (0-2) /LPF 12/24/23 12/24/23 Range/Units 12:56 20:45 WBC (4.8-10.8) X10*3/uL RBC (4.20-5.50) X10*6/uL Hgb (12.0-16.0) g/dl Hct (37.0-47.0) % MCV (80.0-98.0) fL MCH (27.0-33.0) pg MCHC (31.0-35.0) g/dl RDW (11.0-16.0) % Plt Count (160-400) X10*3/uL MPV (9.4-12.3) fL Immature Gran % (Auto) (0.0-0.4) % Neut % (Auto) (45-73) % Lymph % (Auto) (20-40) % [place] % (Auto) (2-11) % Eos % (Auto) (0-4) % Baso % (Auto) (0-2) % Lymph # (Auto) (1.2-4.9) X10*3/uL [place] # (Auto) (0.1-1.2) X10*3/uL Eos # (Auto) (0.0-0.4) X10*3/uL Baso # (Auto) (0.0-0.2) X10*3/uL Abs Immat Gran (auto) (0.00-0.03) X10*3/uL Absolute Neuts (auto) (2.0-8.3) x10*3/uL Absolute Nucleated RBC (0.0-0.012) X10*3/uL Nucleated RBC % (auto) (0.0-0.2) /100WBC Sodium (135-145) mmol/L Potassium (3.3-5.1) mmol/L Chloride (96-108) mmol/L Carbon Dioxide (22-29) mmol/L Anion Gap (12-20) BUN (9-16) mg/dL Creatinine (0.5-1.4) mg/dL Estim Creat Clear Calc Estimated GFR POC Glucose 144 H (60-115) mg/dL Random Glucose (60-115) mg/dL Calcium (8.4-10.2) mg/dL Total Bilirubin (0.0-1.0) mg/dL AST (5-31) U/L ALT (0-31) U/L Alkaline Phosphatase (39-117) U/L Troponin I High Sens < 2.7 (<3.5-17.0) ng/L Total Protein (6.5-8.0) g/dL Albumin (3.5-5.0) g/dL Lipase (8-78) U/L Urine Color Urine Appearance Urine pH (5.0-9.0) Ur Specific [place] (1.005-1.025) Urine Protein (Neg-Trace) mg/dL Urine Glucose (UA) (Negative) mg/dL Urine Ketones (Negative) mg/dL Urine Blood (Negative) Urine Nitrite (Negative) Ur Leukocyte Esterase (Negative) Urine RBC (0-2) /HPF Urine WBC (0-5) /HPF Ur Squamous Epith Cells (0-2) /HPF Urine Bacteria (None Seen) Hyaline Casts (0-2) /LPF Independent Interpretation I performed an independent interpretation of an: EKG, Ultrasound and CT Scan Interpretation: Normal sinus rhythm heart rate 91 beats per minute normal interval normal axis no acute ST T wave change no acute ischemia Radiology Impression Discussion of test interpretation with radiology: I have reviewed the radiologist's reading. Discharge Plan Discharge Clinical Impression: Gastroenteritis Patient Disposition: Home, Self-Care Instructions: Gastroenteritis (ED) Additional Instructions: Drink plenty of fluids Medicine for nausea/vomiting as prescribed Prescriptions: New ondansetron 4 mg tablet,disintegrating 4 mg PO Q6-8H PRN (Reason: nausea and vomiting) Qty: 10 0RF No Action (DME) FreeStyle Lite Strips Strip See Rx Instructions .Route Qty: 100 11RF Rx Instructions: As directed to test 3 times a day insulin glargine 100 unit/mL (3 mL) insulin pen 16 unit subcut BEDTIME 90 Days Qty: 14.4 3RF (DME) FreeStyle Bronson 14 Day Sensor Kit See Rx Instructions .Route Qty: 1 11RF Rx Instructions: As directed (DME) pen needle, diabetic [1st Tier Unifine Pentips] 31 gauge x 5/16 needle See Rx Instructions .ROUTE .MEDSUPPLY Qty: 50 11RF Rx Instructions: once a day (DME) lancets 28 gauge misc See Rx Instructions topical .MEDSUPPLY Qty: 100 6RF Rx Instructions: 3 times a day metformin 500 mg tablet extended release 24 hr 1,000 mg PO BID 90 Days Qty: 360 0RF Rx Instructions: Future refills to pcp. ezetimibe 10 mg tablet 10 mg PO DAILY Qty: 90 0RF Trulicity 3 mg/0.5 mL pen injector 3 mg subcut QWEEK 90 Days Qty: 6.5 1RF (DME) FreeStyle Lite Strips Strip See Rx Instructions .Route Rx Instructions: As directed acetaminophen 500 mg tablet 1,000 mg PO QID PRN (Reason: pain) Qty: 30 0RF
--- NOTE | 2023-12-24 12:41 | ECG_ITS ---
Test Reason : CP Blood Pressure : / mmHG Vent. Rate : 091 BPM Atrial Rate : 091 BPM P-R Int : 122 ms QRS Dur : 078 ms QT Int : 372 ms P-R-T Axes : 073 030 076 degrees QTc Int : 457 ms Normal sinus rhythm Possible Left atrial enlargement Nonspecific ST abnormality Abnormal ECG No significant changes when compared with the previous EKG of 05 nov 2018 Referred By: Pam Rust Electronically Signed By:SUZAN MCCLELLAN
[2023-12-24 13:28] LABS: Troponin-I High Sensitivity < 2.7 ng/L (<3.5-17.0)
[2023-12-24 15:31] VITALS: BP 147/90; PULSE 97; RESP 20; TEMP 36.4; O2SAT 98
[2023-12-24] MEDS: Ondansetron ODT 4 MG TAB.RAPDIS TRANSLINGU (15:33)
[2023-12-24 20:31] VITALS: BP 124/65; PULSE 86; RESP 18; TEMP 36.9; O2SAT 93
[2023-12-24 20:49] LABS: Glucose, Whole Blood 144 mg/dL (60-115)
[2023-12-24] MEDS: 0.9 % Sodium Chloride 1,000 ML 999 ML IV (21:11)
[2023-12-24] MEDS: Morphine Sulfate 4 MG/ML CARTRIDGE IVPUSH (21:18)
[2023-12-24 22:46] VITALS: BP 131/66; PULSE 88; RESP 18; TEMP 36.7; O2SAT 97
[2023-12-24 23:42] VITALS: BP 131/66; PULSE 88; RESP 18; TEMP 36.7; O2SAT 97
== END 2023-12-24 23:44 | disposition home or self-care (01) ==
PROVIDERS: Physician Assistant Medical; Emergency Provider Internal Medicine; PCP Internal Medicine
DX: K52.9 Noninfective gastroenteritis and colitis, unspecified (principal); M54.50 Low back pain, unspecified; R11.2 Nausea with vomiting, unspecified; R10.13 Epigastric pain; R07.89 Other chest pain; Z79.899 Other long term (current) drug therapy
CPT/HCPCS: 36415; 74176; 76705; 80053; 81001; 82947; 83690; 84484; 85025; 93005; 96374; 99284; 99285; J2270

== ENCOUNTER → 2023-12-24 12:41 | Outpatient (BNV) | payer OTHER, SELFPAY | PROVIDERS: PCP Internal Medicine; Visit Provider Internal Medicine | DX: R07.9 Chest pain, unspecified (principal) | CPT/HCPCS: 93010 ==

== ENCOUNTER 2024-03-09 06:01 | Outpatient (REF) | payer OTHER, SELFPAY ==
[2024-03-09 08:42] LABS: Microalbum/Creatinine Ratio Ur 6.2 ug/mg cr (<30)
[2024-03-09 08:51] LABS: Alanine Aminotransferase 6 U/L (0-31); Albumin Level 3.9 g/dL (3.5-5.0); Alkaline Phosphatase 59 U/L (39-117); Anion Gap 11 (12-20); Aspartate Amino Transferase 12 U/L (5-31); Bilirubin Total 0.5 mg/dL (0.0-1.0); Blood Urea Nitrogen 11 mg/dL (9-16); Calcium 9.5 mg/dL (8.4-10.2); Carbon Dioxide 29 mmol/L (22-29); Chloride 104 mmol/L (96-108); Cholesterol 166 mg/dL (<200); Estimated Glomerular Filt Rate > 60; Glucose Fasting 116 mg/dL (60-99); HDL Cholesterol 51 mg/dL (>40); LDL Cholesterol Calculated 88 mg/dL (<100); Potassium 3.7 mmol/L (3.3-5.1); Sodium 140 mmol/L (135-145); Total Protein 6.9 g/dL (6.5-8.0); Triglycerides 136 mg/dL (<150); Vitamin D 25-OH Total 38.2 ng/mL (>30)
== END 2024-03-09 06:02 | disposition home or self-care (01) ==
LOC: HO.LAB 06:01
PROVIDERS: PCP Internal Medicine; Visit Provider Internal Medicine
DX: E55.9 Vitamin D deficiency, unspecified (principal); E11.9 Type 2 diabetes mellitus without complications; E11.65 Type 2 diabetes mellitus with hyperglycemia; E78.5 Hyperlipidemia, unspecified
CPT/HCPCS: 36415; 80053; 80061; 82043; 82306; 82570

== ENCOUNTER 2024-03-16 13:39 | Outpatient (AMB) | payer OTHER, SELFPAY ==
--- NOTE | 2024-03-16 13:41 | A.OFFPC_ITS ---
Vital Signs 03/16/24 13:42 Height 5 ft 6 in Weight 149 lb 14.629 oz BMI 24.2 BP 122/80 Blood Pressure Location Lt brachial Position Sitting Intake Visit Reasons: dm Intake Note: Patient here for a follow up DM, c/o ear and nasal discomfort requesting referral Business Liaison Manager Required: No Accompanied by: Friend Allergies atorvastatin [ATORVASTATIN] Adverse Reaction (Intermediate, Verified 03/16/24 13:58) MYALGIA, myalgias lisinopril [LISINOPRIL] Adverse Reaction (Intermediate, Verified 03/16/24 13:58) DIZZINESS, diziness januvia Adverse Reaction (Intermediate, Uncoded 03/16/24 13:58) abdominal discomfort Medication List - Last Reconciled 03/16/24 by Jolene Farah MD acetaminophen 1,000 mg (2 x 500 mg) PO QID PRN blood sugar diagnostic (FreeStyle Lite Strips) As directed blood sugar diagnostic (FreeStyle Lite Strips) As directed to test 3 times a day dulaglutide (Trulicity) 3 mg (0.5 mL) subcut QWEEK 90 days ezetimibe 10 mg PO DAILY flash glucose sensor (FreeStyle Bronson 14 Day Sensor kit) As directed insulin glargine 16 units (0.16 mL) subcut BEDTIME 90 days lancets 3 times a day metformin ER 1,000 mg (2 x 500 mg) PO BID 90 days ondansetron 4 mg PO Q6-8H PRN pen needle, diabetic (1st Tier Unifine Pentips) once a day Tobacco use date assessed: 11/14/23 Fall risk assessment: No Falls in past year Last assessed Fall Risk: 03/16/24 Dental Screening Dental Screen Date: 11/14/23 HPI HPI Comments History of Present Illness Details This is a 68-year-old female with diabetes mellitus type 2 on long-term current use of insulin, COPD, osteoporosis and dyslipidemia that comes today accompanied by friend for follow-up her conditions. A1c elevated and has been out of Trulicity for few weeks. I will discontinue Trulicity and start her on Jardiance. I will also increase insulin from 16 units to 20 units once a day. Was found to have COPD and will be refer to pulmonology. Denies any chest pain or shortness on breath. DEXA scan shows osteoporosis and will be referred to rheumatology. Compliant with Zetia and LDL still not on goal and this is why I will add rosuvastatin. [facility] Medical History (Updated 03/16/24 @ 15:09 by Jolene Farah MD) Blurry vision Right hip pain B12 deficiency senior living (current) use of insulin Diabetes type 2, uncontrolled Dyslipidemia Microalbuminuria Surgical History H/O colonoscopy Hx of myomectomy Hx of eye surgery Hx of tubal ligation Family History Father Hypertension Mother Diabetes Alzheimer disease Mental health disorder Maternal Grandmother Diabetes Social History Housing: Apartment Alcohol intake: never Patient Tobacco Use Status: Never used Tobacco e-Cigarette/Vaping Use: Never Used Second Hand Smoke Exposure: No service: No 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al status: disabled 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 Dano Fontaine, Vickie Holguin, Ross Perla and colleagues, with an educational baljit from [employer] Review of Systems Const All systems reviewed & are unremarkable except as noted in HPI and below Card Denies chest pain at rest, Denies chest pain with activity, Denies edema, Denies irregular heart rhythm, Denies claudication, Denies dyspnea, Denies dyspnea on exertion, Denies orthopnea, Denies paroxysmal nocturnal dyspnea and Denies slow heart rate Resp Denies cough, Denies dyspnea and Denies dyspnea on exertion Physical exam (Primary Care) Vital Signs: Last Vital Signs BP 122/80 03/16/24 13:42 BMI result Body Mass Index 24.2 Tobacco/Smoking Status: Tobacco use Status Tobacco use date assessed 11/14/23 03/16/24 13:50 Patient Tobacco Use Status Never used Tobacco 03/16/24 13:50 e-Cigarette/Vaping Use Never Used 03/16/24 13:50 Thrive Assessment: Date of Thrive Assessment Date Thrive assessed 11/14/23 03/16/24 13:50 Resp Effort & Inspection: normal respiratory effort Auscultation: clear to auscultation bilaterally Cardio Jugular venous distension: no JVD Rate: regular rate Rhythm: regular rhythm Heart sounds: S1 normal heart sound present and S2 normal heart sound present Extrem General: Yes full ROM Results AMB Hemoglobin A1c AMB Hemoglobin A1c 7.3 % Last Edit by ASHLEY Carpenter on 03/16/24 13:5 3 Results Reviewed Results Reviewed: Laboratory Last Values Hgb A1c (Clinic) 7.3 % (4.0-6.0) H 03/16/24 13:41 Assessment and Plan Assessment & Plan (1) Diabetes mellitus: Code(s): E11.9 - Type 2 diabetes mellitus without complications Qualifiers: Diabetes mellitus type: type 2 Diabetes mellitus fdc insulin use: with termite exterminator helper use Diabetes mellitus complication status: with hyperglycemia Qualified Code(s): E11.65 - Type 2 diabetes mellitus with hyperglycemia; Z79.4 - senior living (current) use of insulin Plan: Increase insulin from 16 units to 20 units. Start Jardiance. Discontinue Trulicity. A1c goal is equal or less than 7%. (2) COPD (chronic obstructive pulmonary disease): Code(s): J44.9 - Chronic obstructive pulmonary disease, unspecified Qualifiers: COPD type: unspecified COPD Qualified Code(s): J44.9 - Chronic obstructive pulmonary disease, unspecified Plan: Referred to pulmonology. (3) Dyslipidemia: Code(s): E78.5 - Hyperlipidemia, unspecified Plan: Continue Zetia. Start low-dose statin. LDL goal is less than 70. (4) Osteoporosis: Code(s): M81.0 - Age-related osteoporosis without current pathological fracture Qualifiers: Osteoporosis type: age-related Presence of current pathological fracture: without current pathological fracture Qualified Code(s): M81.0 - Age- related osteoporosis without current pathological fracture Plan: Referred to rheumatology. Orders: Orders Vitamin B12 and Folate 4 Months E53.8 - Deficiency of other specified B group vitamins Vitamin D 25-OH Total 4 Months E55.9 - Vitamin D deficiency, unspecified Microalbumin, Random (w Creat) 4 Months E11.9 - Type 2 diabetes mellitus without complications Lipid Panel 4 Months E78.5 - Hyperlipidemia, unspecified AMB Hemoglobin A1c Today E11.9 - Type 2 diabetes mellitus without complications Comprehensive [place]. Panel Fast 4 Months E78.5 - Hyperlipidemia, unspecified Referrals Pulmonology Referral J44.9 - Chronic obstructive pulmonary disease, unspecified Rheumatology Referral M81.0 - Age-related osteoporosis without current pathological fracture Ear/Nose/Throat Referral H92.09 - Otalgia, unspecified ear Medications: New empagliflozin (Jardiance) 10 mg PO DAILY 90 tabs 1RF 90 days E11.9 - Type 2 diabetes mellitus without complications rosuvastatin 10 mg PO DAILY 90 tabs 1RF 90 days E78.5 - Hyperlipidemia, unspecified Changed From insulin glargine 16 units (0.16 mL) subcut BEDTIME 90 days 14.4 mL 3RF E11.65 - Type 2 diabetes mellitus with hyperglycemia To insulin glargine 20 units (0.2 mL) subcut BEDTIME 18 mL 3RF 90 days E11.65 - Type 2 diabetes mellitus with hyperglycemia Discontinued dulaglutide (Trulicity) Discontinued Reason: Patient Completed Course 3 mg (0.5 mL) subcut QWEEK 90 days 6.5 mL 1RF E11.9 - Type 2 diabetes mellitus without complications Coding Level of Care Code Est Pt Level 4 (74101) Complex EM visit Add On G2211 Diagnoses Type 2 diabetes mellitus with hyperglycemia, with long-term current use of insulin E11.65; Z79.4 Diabetes mellitus type: type 2 Diabetes mellitus termite exterminator helper insulin use: with fdc use Diabetes mellitus complication status: with hyperglycemia Chronic obstructive pulmonary disease, unspecified COPD type J44.9 COPD type: unspecified COPD Dyslipidemia E78.5 Age-related osteoporosis without current pathological fracture M81.0 Osteoporosis type: age-related Presence of current pathological fracture: without current pathological fracture Time Spent (min) 23
[2024-03-16 13:42] VITALS: BP 122/80; BMI 24.2
== END 2024-03-16 14:14 | disposition home or self-care (01) ==
PROVIDERS: PCP Internal Medicine; Visit Provider Internal Medicine
DX: E11.65 Type 2 diabetes mellitus with hyperglycemia (principal); Z79.4 Long term (current) use of insulin; J44.9 Chronic obstructive pulmonary disease, unspecified; E78.5 Hyperlipidemia, unspecified; M81.0 Age-related osteoporosis without current pathological fracture; E11.9 Type 2 diabetes mellitus without complications
CPT/HCPCS: 83036; 99214; G2211

== ENCOUNTER 2024-05-07 14:55 | Outpatient (AMB) | payer OTHER, SELFPAY ==
[2024-05-07 15:08] VITALS: BP 138/60; PULSE 88; O2SAT 98; BMI 24.6
--- NOTE | 2024-05-07 15:08 | A.OFFVIS_ITS ---
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 The patient is a 68-year-old woman with an abnormal CT scan Findings. The patient apparently had been in usual state health until she started developing some upper abdominal discomfort. She went to the ER where she did have a CT scan of the abdomen and pelvis. No clear explanation for the abdominal discomfort although it was written the report that there was some pulmonary findings. I did personally review the CAT scan with the patient. I do appreciate bilateral atelectasis. May have been related to the abdominal discomfort and inability to expand her lungs. The patient did have some mosaic pattern and some areas suggesting some areas of lucency although I do not see any overt emphysema. The patient also has some airways but I would also did not appreciate any significant traction bronchiectasis as noted. I do not see any significant pulmonary fibrosis. I do believe that is mainly atelectasis. In meantime also patient did have significant coronary artery calcifications. The patient on further questioning states that she has a significant cardiac family history with both her sister and brother having to have cardiac surgery and also her father had a lot of issues. Her sister was only 60 years old when she had heart disease. In view of her cardiac history and abdominal discomfort needs to consider underlying cardiac etiologies as well. Therefore, will be reasonable to further address the discomfort in the findings with the stress echo. The patient also has significant sinusitis. She has had significant nasal congestion of the right nostril. Significant secretions in the side. She does have sinus pressure. Been uncomfortable for some time. She does have an ENT evaluation. Will go ahead and treat her with doxycycline and also often. Unfortunately she does have diabetes and therefore hold off on prednisone and also will hold off on Sudafed. The patient should continue the nasal spray. The patient will undergo pulmonary function study to address the question of COPD. Clinically she is asymptomatic so I do not foresee any issues. The patient is lifelong nonsmoker and she has used Biofreeze to but not regularly. The patient also will undergo sinus x-rays and chest x-ray. Will follow-up after her PFTs. If she develops any worsening symptoms prior to the next visit she is to call the office for further evaluation. 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 Diabetes type 2, uncontrolled Dyslipidemia Microalbuminuria Surgical History H/O colonoscopy Hx of myomectomy Hx of eye surgery Hx of tubal ligation Family History Father Hypertension Mother Diabetes Alzheimer disease Mental health disorder Maternal Grandmother Diabetes Social History Housing: Apartment Alcohol intake: never Patient Tobacco Use Status: Never used Tobacco e-Cigarette/Vaping Use: Never Used Second Hand Smoke Exposure: No service: No 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al status: disabled 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 Cognitive needs: No Hearing needs: No Vision needs: No Review of Systems Const Denies fever(s) and Denies weight loss Eyes Denies change in vision ENT Reports nasal congestion, Reports nasal discharge, Reports nasal obstruction, Reports post nasal drip and Reports sinus pressure Card Denies chest pain, Denies dyspnea and Denies dyspnea on exertion Resp Denies dyspnea, Denies dyspnea on exertion and Denies wheezing GI Reports as per HPI Musc Reports no additional complaints Skin/Breast Denies rash Joe/Lymph Denies lymphadenopathy Aller/Immun Denies wheezing Physical Exam Vital Signs: Last Vital Signs Pulse 88 05/07/24 15:08 BP 138/60 05/07/24 15:08 Pulse Ox 98 05/07/24 15:08 Oxygen Delivery Method Room Air 05/07/24 15:08 BMI result Body Mass Index 24.6 Const General: comfortable HEENT General nose exam: Abnormal mucous membranes and turbinates present erythematous and Nasal discharge present Neck Neck: Yes supple Chest Chest palpation & inspection: normal inspection of the chest Resp Effort & Inspection: normal respiratory effort Auscultation: clear to auscultation bilaterally GI Palpation (GI): Soft to palpation Skin General skin exam: no rashes or lesions noted Extrem General: Yes no clubbing, cyanosis or edema Assessment & Plan Assessment & Plan (1) Dyspnea: Code(s): R06.00 - Dyspnea, unspecified Category: Medical Qualifiers: Dyspnea type: dyspnea on exertion Qualified Code(s): R06.09 - Other forms of dyspnea (2) Sinusitis: Code(s): J32.9 - Chronic sinusitis, unspecified Category: Medical Qualifiers: Sinusitis location: maxillary Chronicity: chronic Qualified Code(s): J32.0 - Chronic maxillary sinusitis (3) Coronary artery calcification: Code(s): I25.10 - Atherosclerotic heart disease of [place] coronary artery without angina pectoris Category: Medical Plan start Doxycycline Afrin x 5 days only fluticasone nasal spray stress ECHO CXR/sinus xray F/U with ENT PFTs F/U 2 months Orders: Orders XR sinus <3V Today J32.9 - Chronic sinusitis, unspecified, R06.00 - Dyspnea, unspecified CA echo stress exercise Today I25.10 - Atherosclerotic heart disease of [place] coronary artery without angina pectoris, R06.00 - Dyspnea, unspecified XR chest 2V Today J32.9 - Chronic sinusitis, unspecified, R06.00 - Dyspnea, unspecified PFT pulmonary function test Today R06.09 - Other forms of dyspnea Medications: New oxymetazoline 0.05% (Afrin (oxymetazoline)) 2 sprays intranasal Q12H 5 days PRN 22 mL 0RF nasal congestion doxycycline monohydrate 100 mg PO BID 14 days 28 tabs 0RF Coding Level of Care Code New Pt Level 4 (51557) Diagnoses Dyspnea on exertion R06.09 Dyspnea type: dyspnea on exertion Chronic maxillary sinusitis J32.0 Sinusitis location: maxillary Chronicity: chronic Coronary artery calcification I25.10 Time Spent (min) 40
== END 2024-05-07 15:37 | disposition home or self-care (01) ==
PROVIDERS: PCP Internal Medicine; Referring Provider Internal Medicine; Visit Provider Hospitalist
DX: R06.09 Other forms of dyspnea (principal); J32.0 Chronic maxillary sinusitis; I25.10 Atherosclerotic heart disease of native coronary artery without angina pectoris
CPT/HCPCS: 99204

== ENCOUNTER → 2024-05-07 14:55 | Outpatient (BNVA) | payer OTHER, SELFPAY | PROVIDERS: PCP Internal Medicine; Referring Provider Internal Medicine; Visit Provider Hospitalist | DX: J44.9 Chronic obstructive pulmonary disease, unspecified (principal); R06.09 Other forms of dyspnea; J32.0 Chronic maxillary sinusitis; I25.10 Atherosclerotic heart disease of native coronary artery without angina pectoris | CPT/HCPCS: 99202 ==

== ENCOUNTER 2024-06-20 09:00 | Outpatient (REF) | payer OTHER, SELFPAY ==
--- NOTE | 2024-06-20 09:00 | PFT_ITS ---
Flows: FEV1: 68 % of predicted at 1.60 L FVC: 105 % of predicted at 3.17 L FEV1/FVC: 50 % Bronchodilator response: Absent Volumes: Patient unable to perform lung volume maneuvers. Diffusion capacity: Normal Impression: Moderate obstructive ventilatory defect. No bronchodilator response. Patient unable to perform lung volume maneuvers. MTDD
[2024-06-20 09:38] VITALS: PULSE 80; RESP 16; O2SAT 99
== END 2024-06-20 09:01 | disposition home or self-care (01) ==
LOC: HO.RESP 09:00
PROVIDERS: PCP Internal Medicine; Visit Provider Hospitalist
DX: R06.09 Other forms of dyspnea (principal)
CPT/HCPCS: 94010; 94640; 94727; 94729

== ENCOUNTER 2024-06-24 14:00 | Outpatient (REF) | payer OTHER, SELFPAY ==
--- NOTE | ~2024-06-24 | MM_ITS ---
EXAMINATION: MM SCREENING DIGITAL BREAST TOMOSYNTHESIS, BILATERAL CLINICAL INFORMATION: Screening. Asymptomatic. COMPARISON: Mammography: Comparison is made with available priors TECHNIQUE: Digital breast mammography with tomosynthesis is performed in both the craniocaudal and mediolateral oblique views along with computer-aided detection (CAD). FINDINGS: The breasts are heterogeneously dense, which may obscure small masses (ACR BI-RADS breast composition Category c). There are no significant masses, abnormal calcifications, or other abnormalities. MM/MM tomosynthesis screening BI IMPRESSION: No mammographic evidence of malignancy. ASSESSMENT: BI-RADS BI-RADS 1 - Negative RECOMMENDATION: Routine annual mammography screening. 1 year F/U This examination should not preclude the clinical evaluation of a suspicious palpable abnormality. This patient's information was entered into a reminder system with a target due date for their next mammogram. Electronically signed by: Anabel Oreilly DO 07/07/2024 07:08 PM EDT
== END 2024-06-24 14:01 | disposition home or self-care (01) ==
LOC: HO.MAMMO 14:00
PROVIDERS: PCP Internal Medicine; Visit Provider Internal Medicine
DX: Z12.31 Encounter for screening mammogram for malignant neoplasm of breast (principal)
CPT/HCPCS: 77063; 77067

== ENCOUNTER → 2024-06-24 14:15 | Outpatient (BNV) | payer OTHER, SELFPAY | PROVIDERS: PCP Internal Medicine; Visit Provider Internal Medicine | DX: Z12.31 Encounter for screening mammogram for malignant neoplasm of breast (principal) | CPT/HCPCS: 77063; 77067 ==

== ENCOUNTER 2024-07-10 10:48 | Outpatient (AMB) | payer OTHER, SELFPAY ==
[2024-07-10 11:02] VITALS: BP 124/70; PULSE 69; O2SAT 98; BMI 24.8
--- NOTE | 2024-07-10 11:02 | MHC.OFFVIS ---
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 The patient apparently had been in usual state health until she started developing some upper abdominal discomfort. She went to the ER where she did have a CT scan of the abdomen and pelvis. No clear explanation for the abdominal discomfort although it was written the report that there was some pulmonary findings. I did personally review the CAT scan with the patient. I do appreciate bilateral atelectasis. May have been related to the abdominal discomfort and inability to expand her lungs. The patient did have some mosaic pattern and some areas suggesting some areas of lucency although I do not see any overt emphysema. The patient also has some airways but I would also did not appreciate any significant traction bronchiectasis as noted. I do not see any significant pulmonary fibrosis. I do believe that is mainly atelectasis. In meantime also patient did have significant coronary artery calcifications. The patient on further questioning states that she has a significant cardiac family history with both her sister and brother having to have cardiac surgery and also her father had a lot of issues. Her sister was only 60 years old when she had heart disease. In view of her cardiac history and abdominal discomfort needs to consider underlying cardiac etiologies as well. Therefore, will be reasonable to further address the discomfort in the findings with the stress echo. The patient also has significant sinusitis. She has had significant nasal congestion of the right nostril. Significant secretions in the side. She does have sinus pressure. Been uncomfortable for some time. She does have an ENT evaluation. Will go ahead and treat her with doxycycline and also often. Unfortunately she does have diabetes and therefore hold off on prednisone and also will hold off on Sudafed. The patient should continue the nasal spray. The patient will undergo pulmonary function study to address the question of COPD. Clinically she is asymptomatic so I do not foresee any issues. The patient is lifelong nonsmoker and she has used Biofreeze to but not regularly. The patient also will undergo sinus x-rays and chest x-ray. Will follow-up after her PFTs. If she develops any worsening symptoms prior to the next visit she is to call the office for further evaluation. 07/10/2024 The patient is here for a follow up visit. Doing better. Still have a nasal congestion and cough, mild to moderate in severity. Has been using the nasal therapies and will be going to ENT soon. We did review her PFTs and appeart that she developed laryngospasms during the study. She also noted to have obstructive airway disease. She needs to start Symbicort. In the meantime she was not able to get xrays or stress ECHO. [facility] Medical History (Updated 05/07/24 @ 22:40 by Gian Chew MD) Coronary artery calcification Sinusitis Dyspnea Blurry vision Right hip pain B12 deficiency 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 (current) use of insulin Diabetes type 2, uncontrolled Dyslipidemia Microalbuminuria Surgical History H/O colonoscopy Hx of myomectomy Hx of eye surgery Hx of tubal ligation Family History Father Hypertension Mother Diabetes Alzheimer disease Mental health disorder Maternal Grandmother Diabetes Social History Housing: Apartment Alcohol intake: never Patient Tobacco Use Status: Never used Tobacco e-Cigarette/Vaping Use: Never Used Second Hand Smoke Exposure: No service: No 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al status: disabled 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 Cognitive needs: No Hearing needs: No Vision needs: No Review of Systems Const Denies fever(s) and Denies weight loss Eyes Denies change in vision ENT Reports nasal congestion, Reports nasal discharge, Reports nasal obstruction, Reports post nasal drip and Reports sinus pressure Card Denies chest pain, Denies dyspnea and Denies dyspnea on exertion Resp Reports cough, Denies dyspnea, Denies dyspnea on exertion and Denies wheezing GI Reports as per HPI Musc Reports no additional complaints Skin/Breast Denies rash Joe/Lymph Denies lymphadenopathy Aller/Immun Denies wheezing Physical Exam Vital Signs: Last Vital Signs Pulse 69 07/10/24 11:02 BP 124/70 07/10/24 11:02 Pulse Ox 98 07/10/24 11:02 Oxygen Delivery Method Room Air 07/10/24 11:02 BMI result Body Mass Index 24.8 Const General: comfortable HEENT General nose exam: Abnormal mucous membranes and turbinates present erythematous and Nasal discharge present Neck Neck: Yes supple Chest Chest palpation & inspection: normal inspection of the chest Resp Effort & Inspection: normal respiratory effort Auscultation: clear to auscultation bilaterally GI Palpation (GI): Soft to palpation Skin General skin exam: no rashes or lesions noted Extrem General: Yes no clubbing, cyanosis or edema Assessment & Plan Assessment & Plan (1) Dyspnea: Code(s): R06.00 - Dyspnea, unspecified Category: Medical Qualifiers: Dyspnea type: dyspnea on exertion Qualified Code(s): R06.09 - Other forms of dyspnea (2) Sinusitis: Code(s): J32.9 - Chronic sinusitis, unspecified Category: Medical Qualifiers: Chronicity: chronic Sinusitis location: maxillary Qualified Code(s): J32.0 - Chronic maxillary sinusitis (3) Coronary artery calcification: Code(s): I25.10 - Atherosclerotic heart disease of [place] coronary artery without angina pectoris Category: Medical Plan fluticasone nasal spray stress ECHO not done CXR/sinus xray not done F/U with ENT start Symbicort Fluticasone astelin nasal spray nasal rinsing F/U 4-6 months Medications: New budesonide-formoterol 160-4.5 mcg/actuation 2 puffs inhalation BID 30 days 10.2 grams 11RF J44.89 - Other specified chronic obstructive pulmonary disease fluticasone propionate 50 mcg/actuation 2 sprays intranasal DAILY 30 days 15.8 mL 11RF J31.0 - Chronic rhinitis azelastine administer into each nostril 2 sprays intranasal BID 30 days 30 mL 6RF Coding Level of Care Code Est Pt Level 4 (03504) Diagnoses Dyspnea on exertion R06.09 Dyspnea type: dyspnea on exertion Chronic maxillary sinusitis J32.0 Chronicity: chronic Sinusitis location: maxillary Coronary artery calcification I25.10 Time Spent (min) 17
== END 2024-07-10 11:26 | disposition home or self-care (01) ==
PROVIDERS: PCP Internal Medicine; Visit Provider Hospitalist
DX: R06.09 Other forms of dyspnea (principal); J32.0 Chronic maxillary sinusitis; I25.10 Atherosclerotic heart disease of native coronary artery without angina pectoris
CPT/HCPCS: 99214

== ENCOUNTER → 2024-07-10 10:48 | Outpatient (BNVA) | payer OTHER, SELFPAY | PROVIDERS: PCP Internal Medicine; Visit Provider Hospitalist | DX: J44.89 Other specified chronic obstructive pulmonary disease (principal); J32.9 Chronic sinusitis, unspecified; I25.10 Atherosclerotic heart disease of native coronary artery without angina pectoris; R06.09 Other forms of dyspnea; J32.0 Chronic maxillary sinusitis; J31.0 Chronic rhinitis | CPT/HCPCS: 99212 ==

== ENCOUNTER 2024-07-30 14:59 | Outpatient (AMB) | payer OTHER, SELFPAY ==
--- NOTE | 2024-07-30 15:00 | A.OFFPC_ITS ---
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 Accompanied by: Self / Same As Patient Allergies atorvastatin [ATORVASTATIN] Adverse Reaction (Intermediate, Verified 07/30/24 15:17) MYALGIA, myalgias lisinopril [LISINOPRIL] Adverse Reaction (Intermediate, Verified 07/30/24 15:17) DIZZINESS, diziness januvia Adverse Reaction (Intermediate, Uncoded 07/30/24 15:17) abdominal discomfort Medication List - Last Reconciled 07/30/24 by Jolene Farah MD acetaminophen 1,000 mg (2 x 500 mg) PO QID PRN azelastine 2 sprays intranasal BID 30 days blood sugar diagnostic (FreeStyle Lite Strips) As directed blood sugar diagnostic (FreeStyle Lite Strips) As directed to test 3 times a day budesonide-formoterol 160-4.5 mcg/actuation 2 puffs inhalation BID 30 days empagliflozin (Jardiance) 10 mg PO DAILY 90 days ezetimibe 10 mg PO DAILY flash glucose sensor (FreeStyle [place] 14 Day Sensor kit) As directed fluticasone propionate 50 mcg/actuation 2 sprays intranasal DAILY 30 days insulin glargine 20 units (0.2 mL) subcut BEDTIME 90 days lancets 3 times a day metformin ER 1,000 mg (2 x 500 mg) PO BID 90 days ondansetron 4 mg PO Q6-8H PRN oxymetazoline 0.05% (Afrin (oxymetazoline)) 2 sprays intranasal Q12H PRN 5 days pen needle, diabetic (1st Tier Unifine Pentips) once a day rosuvastatin 10 mg PO DAILY 90 days Tobacco use date assessed: 11/14/23 Fall risk assessment: No Falls in past year Last assessed Fall Risk: 07/30/24 Dental Screening Dental Screen Date: 07/30/24 Did you have a dental visit in the last 12 months?: No Did you have a dental problem in the last 6 months where you did not have access to dental care?: No Was dental information given to patient?: Patient has dentist HPI HPI Comments History of Present Illness Details This is a 68-year-old female with COPD, diabetes mellitus type 2 on long-term current use of insulin and dyslipidemia that comes today for follow-up on her conditions. On long-acting inhaler for COPD and follow by pulmonology. Still complains of shortness on breath. A1c elevated and I will increase insulin. Last LDL not on goal and dietary changes were advised. No acute complaints. 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 Diabetes type 2, uncontrolled Dyslipidemia Microalbuminuria Surgical History H/O colonoscopy Hx of myomectomy Hx of eye surgery Hx of tubal ligation Family History Father Hypertension Mother Diabetes Alzheimer disease Mental health disorder Maternal Grandmother Diabetes Social History Housing: Apartment Alcohol intake: never Patient Tobacco Use Status: Never used Tobacco e-Cigarette/Vaping Use: Never Used Second Hand Smoke Exposure: No service: No 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al status: disabled 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 Dano Fontaine, Vickie Holguin, Ross Perla and colleagues, with an educational baljit from [employer]. Review of Systems Const All systems reviewed & are unremarkable except as noted in HPI and below Card Denies chest pain at rest, Denies chest pain with activity, Denies edema, Denies irregular heart rhythm, Denies claudication, Denies dyspnea, Denies dyspnea on exertion, Denies orthopnea, Denies paroxysmal nocturnal dyspnea and Denies slow heart rate Resp Denies cough, Denies dyspnea and Denies dyspnea on exertion Physical exam (Primary Care) Vital Signs: Last Vital Signs BP 130/82 07/30/24 15:04 BMI result Body Mass Index 24.5 Tobacco/Smoking Status: Tobacco use Status Tobacco use date assessed 11/14/23 07/30/24 15:00 Patient Tobacco Use Status Never used Tobacco 07/30/24 15:00 e-Cigarette/Vaping Use Never Used 07/30/24 15:00 Thrive Assessment: Date of Thrive Assessment Date Thrive assessed 11/14/23 07/30/24 15:00 Resp Effort & Inspection: normal respiratory effort Auscultation: clear to auscultation bilaterally Cardio Jugular venous distension: no JVD Rate: regular rate Rhythm: regular rhythm Heart sounds: S1 normal heart sound present and S2 normal heart sound present Extrem General: Yes full ROM Office Procedures Flu Questionnaire Does the patient have a severe egg allergy?: No Results AMB Hemoglobin A1c AMB Hemoglobin A1c 12.3 % Last Edit by ASHLEY Carpenter on 07/30/24 15: 13 Immunizations Fluarix Triv [id number] (PF) 45 mcg (15 mcg x 3)/0.5 mL IM syringe Performing Provider: Jolene Farah MD [facility] Documented (not given) by: ASHLEY Carpenter on 07/30/24 15:07 Reason Not Given: Patient Refused Results Reviewed Results Reviewed: Laboratory Last Values Hgb A1c (Clinic) 12.3 % (4.0-6.0) H 07/30/24 15:01 Coding Level of Care Code Est Pt Level 3 (70771) Complex EM visit Add On G2211 Diagnoses Type 2 diabetes mellitus with hyperglycemia, with long-term current use of insulin E11.65; Z79.4 Diabetes mellitus type: type 2 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: with 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 use Diabetes mellitus complication status: with hyperglycemia Chronic obstructive pulmonary disease, unspecified COPD type J44.9 COPD type: unspecified COPD Dyslipidemia E78.5 Time Spent (min) 19 Assessment & Plan Assessment & Plan (1) Diabetes mellitus: Code(s): E11.9 - Type 2 diabetes mellitus without complications Category: Medical Qualifiers: Diabetes mellitus type: type 2 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 A1c goal is equal or less than 7%. (2) COPD (chronic obstructive pulmonary disease): Code(s): J44.9 - Chronic obstructive pulmonary disease, unspecified Category: Medical Qualifiers: COPD type: unspecified COPD Qualified Code(s): J44.9 - Chronic obstructive pulmonary disease, unspecified Plan: Continue long-acting inhaler. Use rescue inhaler as needed. (3) Dyslipidemia: Code(s): E78.5 - Hyperlipidemia, unspecified Category: Medical Plan: Continue statins and Zetia. LDL goal is less than 70. 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 Panel Fast 4 Months E78.5 - Hyperlipidemia, unspecified Medications: New empagliflozin (Jardiance) 25 mg PO DAILY 90 tabs 1RF 90 days Changed From insulin glargine 20 units (0.2 mL) subcut BEDTIME 90 days 18 mL 3RF E11.65 - Type 2 diabetes mellitus with hyperglycemia To insulin glargine 25 units (0.25 mL) subcut BEDTIME 22.5 mL 3RF 90 days E11.65 - Type 2 diabetes mellitus with hyperglycemia Discontinued empagliflozin (Jardiance) Discontinued Reason: Patient Completed Course 10 mg PO DAILY 90 days 90 tabs 1RF E11.9 - Type 2 diabetes mellitus without complications
[2024-07-30 15:04] VITALS: BP 130/82; BMI 24.5
== END 2024-07-30 15:29 | disposition home or self-care (01) ==
PROVIDERS: PCP Internal Medicine; Visit Provider Internal Medicine
DX: E11.65 Type 2 diabetes mellitus with hyperglycemia (principal); Z79.4 Long term (current) use of insulin; J44.9 Chronic obstructive pulmonary disease, unspecified; E78.5 Hyperlipidemia, unspecified

== ENCOUNTER → 2024-07-30 14:59 | Outpatient (BNVA) | payer OTHER, SELFPAY | PROVIDERS: PCP Internal Medicine; Visit Provider Internal Medicine | DX: E11.65 Type 2 diabetes mellitus with hyperglycemia (principal); J44.9 Chronic obstructive pulmonary disease, unspecified; E78.5 Hyperlipidemia, unspecified; Z79.4 Long term (current) use of insulin | CPT/HCPCS: 83036; 90471; 99212 ==

== ENCOUNTER 2024-09-12 10:04 | Emergency (ER) | payer OTHER, SELFPAY ==
--- NOTE | ~2024-09-12 | XR_ITS ---
EXAMINATION: XR FOOT, RIGHT CLINICAL INFORMATION: STUBBED 5TH TOE COMPARISON: None available. TECHNIQUE: AP, lateral, and oblique views of the right foot. FINDINGS: There is an acute minimally displaced comminuted fracture at the proximal portion of the proximal fifth phalanx. No intra-articular extension. Alignment is anatomic. Joint spaces are maintained. XR/XR foot RT 2V IMPRESSION: Acute fracture of the proximal fifth phalanx. Electronically signed by: Deidra Pete MD 09/12/2024 01:54 PM [facility]
[2024-09-12 10:07] VITALS: BP 135/64; PULSE 79; RESP 19; TEMP 36.6; O2SAT 99; BMI 24.6
--- NOTE | 2024-09-12 11:34 | ED_ITS ---
HPI - Extremity Injury (Lower) General Chief Complaint: Extremity Injury, Lower Stated Complaint: r foot swelling Time Seen by Provider: 09/12/24 10:45 Source: patient Mode of arrival: ambulatory Limitations: no limitations History of Present Illness ED Provider: SANDRA KOVACS PA-C HPI Narrative: 68 year old female with pmhx significant for T2DM, HDL, COPD presents to the ED today with right 5th toe pain after stubbing the toe on the side of her bed 5 days ago. Admits to small abrasion to the side of her small toe. Reports continued pain and swelling over the last 5 days. Pain does not radiate. Pain is currently 7/10. She has been taking tylenol with minimal relief. Denies fever, chills, numbness/tingling/weakness to the RLE. Related Data Home Medications ?Medication ?Instructions ?Recorded ?Confirmed blood sugar diagnostic (FreeStyle 01/31/23 07/30/24 Lite Strips) Previous Rx's ?Medication ?Instructions ?Recorded acetaminophen 500 mg tablet 1,000 mg (2 x 500 mg) PO QID PRN 01/31/23 pain #30 tabs blood sugar diagnostic (FreeStyle #100 ea 09/24/23 Lite Strips) flash glucose sensor (FreeStyle #1 ea 10/10/23 Bronson 14 Day Sensor kit) lancets 28 gauge #100 ea 10/10/23 pen needle, diabetic 31 gauge x #50 ea 10/10/23/16 (1st Tier Unifine Pentips) ondansetron 4 mg disintegrating 4 mg PO Q6-8H PRN nausea and 12/24/23 tablet vomiting #10 tabs oxymetazoline 0.05 % nasal spray 2 spray intranasal Q12H PRN nasal 05/07/24 (Afrin (oxymetazoline)) congestion 5 days #22 mL azelastine 137 mcg (0.1 %) nasal 2 spray intranasal BID 30 days #30 07/10/24 spray mL budesonide-formoterol HFA 160 2 puff inhalation BID 30 days 07/10/24 mcg-4.5 mcg/actuation aerosol #10.2 grams inhaler fluticasone propionate 50 2 spray intranasal DAILY 30 days 07/10/24 mcg/actuation nasal #15.8 mL spray,suspension empagliflozin 25 mg tablet 25 mg PO DAILY 90 days #90 tabs 10/24/24 (Jardiance) insulin glargine 100 unit/mL (3 25 unit (0.25 mL) subcut BEDTIME 07/30/24 mL) subcutaneous pen 90 days #22.5 mL metformin 500 mg tablet,extended 1,000 mg (2 x 500 mg) PO BID 90 08/02/24 release 24 hr days #360 tabs ezetimibe 10 mg tablet 10 mg PO DAILY #90 tabs 09/01/24 cephalexin 500 mg capsule 500 mg PO TID 7 days #21 caps 09/12/24 naproxen 500 mg tablet 500 mg PO Q12H PRN pain (scale 09/12/24 score 1-3) #20 tabs rosuvastatin 10 mg tablet 10 mg PO DAILY 90 days #90 tabs 09/16/24 Allergies Allergy/AdvReac Type Severity Reaction Status Date / Time atorvastatin [ATORVASTATIN] AdvReac Intermediate MYALGIA, Verified 09/12/24 10:09 myalgias lisinopril [LISINOPRIL] AdvReac Intermediate DIZZINESS, Verified 09/12/24 10:09 diziness januvia AdvReac Intermediate abdominal Uncoded 09/12/24 10:09 discomfort Review of Systems 2 Review of Systems: Yes all other systems are reviewed and are negative PMFSH Past Medical History Attestation statement: The following information was validated with the patient. 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 Diabetes type 2, uncontrolled Dyslipidemia Microalbuminuria Surgical History H/O colonoscopy Hx of myomectomy Hx of eye surgery Hx of tubal ligation Family History Family History Father Hypertension Mother Diabetes Alzheimer disease Mental health disorder Maternal Grandmother Diabetes Social History Social History Housing: Apartment Alcohol intake: never Patient Tobacco Use Status: Never used Tobacco e-Cigarette/Vaping Use: Never Used Second Hand Smoke Exposure: No Advance Directives: No Advance Directives Information Provided: No Do you have a plan to hurt others: No Plan service: No 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al status: disabled 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 Cognitive needs: No Hearing needs: No Vision needs: No Physical Exam 2 Vital Signs: Vital Signs: Last Vital Signs Temp 98.2 F 09/12/24 14:21 Pulse 74 09/12/24 14:21 Resp 20 09/12/24 14:21 BP 132/62 09/12/24 14:21 Pulse Ox 99 09/12/24 14:21 O2 Del Method Room Air 09/12/24 14:21 BMI result Body Mass Index 24.6 vital signs stable, afebrile General: Well appearing, in no acute distress. Skin: Warm, dry, intact. No rashes or lesions. Head: Normocephalic, atraumatic. EENT: Hearing is intact b/l. Conjunctiva clear. PERRLA. EOM intact. Moist mucous membranes.? Cardiac: Chest wall symmetric. RRR Lungs: Normal respiratory effort without accessory muscle use Ext: +erythema/ swelling noted to lateral aspect of right foot at base of 5th toe with small overlying abrasion. ttp and warm. no palpable deformity. able to move all toes. from intact to right ankle. no streaking. no drainage. 2+PT/DP pulse intact. Neuro: AOx3. Normal speech. Ambulating with steady gait. Psych: Appropriate mood and affect. Responds appropriately to questions. Course Course Course Narrative: X-ray of right foot shows acute fracture of the proximal 5th phalanx. It was minimally displaced, comminuted. There is no intra-articular extension. The 4th and 5th toes were yumiko-taped and patient was placed in a postop shoe. I do have concern for some overlying cellulitic changes to the area of the fracture. There are no open wounds. Given patient is diabetic, will prophylactically treat her with Keflex. Naproxen sent to pharmacy for pain control. I advised patient to follow up with the orthopedic office. Referral provided. Patient has remained stable throughout ED visit today. Discussed worrisome signs and symptoms and when to return to the ED. All questions answered at this time. Patient is agreeable with disposition and stable for discharge. Medications Administered Discontinued Medications Generic Name Dose Route Start Last Admin Trade Name Freq PRN Reason Stop Dose Admin Ketorolac Tromethamine 30 mg 09/12/24 11:34 09/12/24 11:47 Ketorolac Tromethamine 30 Mg/Ml Vial IM 09/12/24 11:35 30 mg ONCE ONE Administration Medical Decision Making Medical Decision Making [facility] Narrative: 68 year old female with pmhx significant for T2DM, HDL, COPD presents to the ED today with right 5th toe pain after stubbing the toe on the side of her bed 5 days ago. Vital signs stable. afebrile. she is nontoxic appearing and in NAD. on exam, erythema/ swelling noted to lateral aspect of right foot at base of 5th toe with small overlying abrasion. ttp and warm. no palpable deformity. able to move all toes. from intact to right ankle. no streaking. no drainage. 2+PT/DP pulse intact. Differential diagnosis includes fracture, cellulitis, contusion, arthritis. Unlikely gout, pseudogout, compartment syndrome, neurovascular compromise, threat to limb Plan for xrays, basic labs, pain control Differential Diagnosis Differential Diagnoses: The differential diagnosis associated with the presentation includes as above Admission/Observation Not indicated Lab Data [facility] Lab Attestation statement: I reviewed the patient's lab results. as above. 09/12/24 11:54 09/12/24 11:54 Labs: Lab Results 09/12/24 Range/Units 11:54 WBC 8.0 (4.8-10.8) X10*3/uL RBC 4.12 L (4.20-5.50) X10*6/uL Hgb 12.0 (12.0-16.0) g/dl Hct 35.7 L (37.0-47.0) % MCV 86.7 (80.0-98.0) fL MCH 29.1 (27.0-33.0) pg MCHC 33.6 (31.0-35.0) g/dl RDW 12.4 (11.0-16.0) % Plt Count 262 D (160-400) X10*3/uL MPV 9.8 (9.4-12.3) fL Immature Gran % (Auto) 0.4 (0.0-0.4) % Neut % (Auto) 62.4 (45-73) % Lymph % (Auto) 28.5 (20-40) % [place]ug[place] % (Auto) 6.8 (2-11) % Eos % (Auto) 1.6 (0-4) % Baso % (Auto) 0.3 (0-2) % Lymph # (Auto) 2.3 (1.2-4.9) X10*3/uL [place] # (Auto) 0.5 (0.1-1.2) X10*3/uL Eos # (Auto) 0.1 (0.0-0.4) X10*3/uL Baso # (Auto) 0.0 (0.0-0.2) X10*3/uL Abs Immat Gran (auto) 0.03 (0.00-0.03) X10*3/uL Absolute Neuts (auto) 5.0 (2.0-8.3) x10*3/uL Absolute Nucleated RBC 0.000 (0.0-0.012) X10*3/uL Nucleated RBC % (auto) 0.0 (0.0-0.2) /100WBC Sodium 138 (135-145) mmol/L Potassium 4.2 (3.3-5.1) mmol/L Chloride 100 (96-108) mmol/L Carbon Dioxide 29 (22-29) mmol/L Anion Gap 13 (12-20) BUN 12 (9-16) mg/dL Creatinine 0.75 (0.5-1.4) mg/dL Estim Creat Clear Calc 65.5 Estimated GFR > 60 Random Glucose 163 H (60-115) mg/dL Calcium 9.7 (8.4-10.2) mg/dL Total Bilirubin 0.7 (0.0-1.0) mg/dL AST 25 (5-31) U/L ALT 23 (0-31) U/L Alkaline Phosphatase 68 (39-117) U/L Total Protein 7.1 (6.5-8.0) g/dL Albumin 4.0 (3.5-5.0) g/dL Independent Interpretation I performed an independent interpretation of an: Plain X-Ray Interpretation: xr right foot showing proximal phalanx fracture of 5th toe Radiology Impression Discussion of test interpretation with radiology: I have reviewed the radiologist's reading. Radiologist Impression: EXAMINATION: XR FOOT, RIGHT CLINICAL INFORMATION: STUBBED 5TH TOE COMPARISON: None available. TECHNIQUE: AP, lateral, and oblique views of the right foot. FINDINGS: There is an acute minimally displaced comminuted fracture at the proximal portion of the proximal fifth phalanx. No intra-articular extension. Alignment is anatomic. Joint spaces are maintained. XR/XR foot RT 2V IMPRESSION: Acute fracture of the proximal fifth phalanx. Electronically signed by: Deidra Pete MD 09/12/2024 01:54 PM [facility] Independent Historian Clinical information obtained from an independent historian. History obtained from or confirmed by: Friend External Record Review External record reviewed: Inpatient record, Office record, Outpatient record, Prior outpatient labs, Prior outpatient radiology, Primary care record and Outside ED record Prescription Management I considered prescription management with: Pain Medication and Antibiotic Chronic Conditions Patient?s care impacted by: Diabetes Social Determinants Patient?s care significantly limited by Social Determinants of Health including: Other Social Determinant of Health Critical Care Time Critical Care Time Critical Care Time: No Discharge Plan Discharge Clinical Impression: Closed fracture of proximal phalanx of toe of right foot Patient Disposition: Home, Self-Care Instructions: Toe Fracture (ED), Post Surgical Shoe (ED) Additional Instructions: You were evaluated in the ED today for toe/ foot pain. Your xrays show a fracture of the fifth toe on your right foot. We have yumiko taped the last two toes together to help with healing. I have provided you with a post-op shoe to wear for comfort. Please follow up with your PCP and orthopedic doctor. You have been provided with a referral. Call them to establish care. They will not call you. I have sent naproxen to your pharmacy for you to take as needed for pain. Do not take this with other NSAIDs such as Motrin as this can cause increased risk of GI bleeding. I have also sent an antibiotic to your pharmacy for skin infection. Take this as prescribed. Return with new or worsening symptoms. Prescriptions: New naproxen 500 mg tablet 500 mg PO Q12H PRN (Reason: pain (scale score 1-3)) Qty: 20 0RF cephalexin 500 mg capsule 500 mg PO TID 7 Days Qty: 21 0RF No Action (DME) FreeStyle Lite Strips Strip See Rx Instructions .Route Qty: 100 11RF Rx Instructions: As directed to test 3 times a day (DME) FreeStyle Bronson 14 Day Sensor Kit See Rx Instructions .Route Qty: 1 11RF Rx Instructions: As directed (DME) pen needle, diabetic [1st Tier Unifine Pentips] 31 gauge x 5/16 needle See Rx Instructions .ROUTE .MEDSUPPLY Qty: 50 11RF Rx Instructions: once a day (DME) lancets 28 gauge misc See Rx Instructions topical .MEDSUPPLY Qty: 100 6RF Rx Instructions: 3 times a day metformin 500 mg tablet extended release 24 hr 1,000 mg PO BID 90 Days Qty: 360 0RF Rx Instructions: Future refills to pcp. ezetimibe 10 mg tablet 10 mg PO DAILY Qty: 90 0RF rosuvastatin 10 mg tablet 10 mg PO DAILY 90 Days Qty: 90 1RF ondansetron 4 mg tablet,disintegrating 4 mg PO Q6-8H PRN (Reason: nausea and vomiting) Qty: 10 0RF (DME) FreeStyle Lite Strips Strip See Rx Instructions .Route Rx Instructions: As directed acetaminophen 500 mg tablet 1,000 mg PO QID PRN (Reason: pain) Qty: 30 0RF oxymetazoline [Afrin (oxymetazoline)] 0.05 % spray,non-aerosol 2 spray intranasal Q12H PRN (Reason: nasal congestion) 5 Days Qty: 22 0RF budesonide-formoterol 160-4.5 mcg/actuation HFA aerosol inhaler 2 puff inhalation BID 30 Days Qty: 10.2 11RF azelastine 137 mcg (0.1 %) spray,non-aerosol 2 spray intranasal BID 30 Days Qty: 30 6RF Rx Instructions: administer into each nostril fluticasone propionate 50 mcg/actuation spray,suspension 2 spray intranasal DAILY 30 Days Qty: 15.8 11RF Jardiance 25 mg tablet 25 mg PO DAILY 90 Days Qty: 90 1RF insulin glargine 100 unit/mL (3 mL) insulin pen 25 unit subcut BEDTIME 90 Days Qty: 22.5 3RF Referrals: Jolene Motnana MD [Primary Care Provider] - Interventions: ED Discharge Assessment Last Done: 09/12/24 14:21 Discharge Date/Time: 09/12/24 14:21 Print Language: Indonesian
[2024-09-12] MEDS: Ketorolac Tromethamine 30 MG/ML VIAL IM (11:47)
[2024-09-12 11:58] LABS: MANUAL DIFF FLAG NO
[2024-09-12 11:59] LABS: Basophils Percent Auto 0.3 % (0-2); Eosinophils Absolute Auto 0.1 X10*3/uL (0.0-0.4); Eosinophils Percent Auto 1.6 % (0-4); Hematocrit 35.7 % (37.0-47.0); Imm Gran Abs Auto 0.03 X10*3/uL (0.00-0.03); Imm Gran Pct Auto 0.4 % (0.0-0.4); Lymphocytes Absolute Auto 2.3 X10*3/uL (1.2-4.9); Lymphocytes Percent Auto 28.5 % (20-40); Mean Corpuscular HGB Conc 33.6 g/dl (31.0-35.0); Mean Corpuscular Hemoglobin 29.1 pg (27.0-33.0); Mean Corpuscular Volume 86.7 fL (80.0-98.0); Mean Platelet Volume 9.8 fL (9.4-12.3); Monocytes Absolute Auto 0.5 X10*3/uL (0.1-1.2); Monocytes Percent Auto 6.8 % (2-11); Neutrophils Percent Auto 62.4 % (45-73); Platelet Count 262 X10*3/uL (160-400); Red Blood Count 4.12 X10*6/uL (4.20-5.50); Red Cell Distribution Width 12.4 % (11.0-16.0)
[2024-09-12 12:13] LABS: Alanine Aminotransferase 23 U/L (0-31); Alkaline Phosphatase 68 U/L (39-117); Anion Gap 13 (12-20); Aspartate Amino Transferase 25 U/L (5-31); Bilirubin Total 0.7 mg/dL (0.0-1.0); Blood Urea Nitrogen 12 mg/dL (9-16); Calcium 9.7 mg/dL (8.4-10.2); Carbon Dioxide 29 mmol/L (22-29); Chloride 100 mmol/L (96-108); Creatinine Clr Calc Pharmacy 65.5; Estimated Glomerular Filt Rate > 60; Glucose Random 163 mg/dL (60-115); Potassium 4.2 mmol/L (3.3-5.1); Sodium 138 mmol/L (135-145); Total Protein 7.1 g/dL (6.5-8.0)
[2024-09-12 14:20] VITALS: BP 132/62; PULSE 74; RESP 20; TEMP 36.8; O2SAT 99
[2024-09-12 14:21] VITALS: BP 132/62; PULSE 74; RESP 20; TEMP 36.8; O2SAT 99
== END 2024-09-12 14:21 | disposition home or self-care (01) ==
PROVIDERS: Physician Assistant Medical; Emergency Provider Emergency Medicine Emergency Medical Services; PCP Internal Medicine
DX: S92.511A Displaced fracture of proximal phalanx of right lesser toe(s), initial encounter for closed fracture (principal); W22.03XA Walked into furniture, initial encounter; E11.9 Type 2 diabetes mellitus without complications; E78.5 Hyperlipidemia, unspecified; Z79.4 Long term (current) use of insulin; Y93.9 Activity, unspecified; Y92.032 Bedroom in apartment as the place of occurrence of the external cause; Y99.9 Unspecified external cause status; Z79.84 Long term (current) use of oral hypoglycemic drugs; Z79.02 Long term (current) use of antithrombotics/antiplatelets; Z79.899 Other long term (current) drug therapy
CPT/HCPCS: 36415; 73620; 80053; 85025; 96372; 99283; 99284; J1885

== ENCOUNTER 2024-10-01 13:44 | Outpatient (AMB) | payer OTHER, SELFPAY ==
--- NOTE | 2024-10-01 14:06 | MHC.OFFVIS ---
Vital Signs 10/01/24 14:07 Height 5 ft 5 in Weight 148 lb BMI 24.6 Intake Visit Reasons: FC-fx of right lesser toe Intake Note: Lisa is a 68 year old female who presents today for a evaluation of her right 5th metatarsal fx, DOI 09/07/24. Patient reports getting pain after she stubbed her toe on the side of her bed. STates she was seen in ED where xrays were taken and a fracture was confirm. States she was given a post op shoe and is helping with her pain. She is experiencing intermittent numbness and tingling. Allergies atorvastatin [ATORVASTATIN] Adverse Reaction (Intermediate, Verified 10/01/24 14:08) MYALGIA, myalgias lisinopril [LISINOPRIL] Adverse Reaction (Intermediate, Verified 10/01/24 14:08) DIZZINESS, diziness januvia Adverse Reaction (Intermediate, Uncoded 10/01/24 14:08) abdominal discomfort HPI HPI FC-fx of right lesser toe: Details: Ms. Yossi Stark is a 68-year-old female who presents in the office today for an evaluation of a fracture of the right proximal fifth phalanx of the toe. The patient presented to the ED on 09/12/24 status post stubbing the toe on the side of her bed, which occurred on 09/07/24. She had an abrasion to the side of her small toe after the injury with continued pain and edema. X-rays of the right foot were obtained. Her right fourth and fifth toes were yumiko-taped, and her right foot was placed in a post-op shoe. She was prescribed naproxen 500 mg PO Q12H PRN for pain and cephalexin 500 mg PO TID for 7 days for possible risk of wound infection near the fracture site due to history of diabetes mellitus.? While in the office today, the patient reports intermittent numbness and tingling in the right foot. She was provided a post-op shoe, which helped with her pain. The patient has a significant medical history of diabetes mellitus. 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 Diabetes type 2, uncontrolled Dyslipidemia Microalbuminuria Surgical History H/O colonoscopy Hx of myomectomy Hx of eye surgery Hx of tubal ligation Family History Father Hypertension Mother Diabetes Alzheimer disease Mental health disorder Maternal Grandmother Diabetes Social History Housing: Apartment Alcohol intake: never Patient Tobacco Use Status: Never used Tobacco e-Cigarette/Vaping Use: Never Used Second Hand Smoke Exposure: No service: No 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al status: disabled 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 Cognitive needs: No Hearing needs: No Vision needs: No Review of Systems Const All systems reviewed & are unremarkable except as noted in HPI and below Physical Exam Vital Signs: BMI result Body Mass Index 24.6 Const General: cooperative, healthy appearing and no acute distress Resp Effort & Inspection: normal respiratory effort and able to speak in complete sentences Cardio Rate: regular rate Peripheral pulses: Peripheral pulses 2+ throughout GI Palpation (GI): Soft to palpation Skin Lesions: no lesions Rashes: no rashes Extrem Other: Right fifth toe: Mild edema and subungual hematoma. No tenderness to palpation over the DIP or MCP. Reports slight numbness. Cap refill is brisk. Office Procedures AMB Fracture Care Fracture Billing Code: Fracture Billing Code Assessment & Plan Assessment & Plan (1) Fracture of phalanx of right fifth toe: Code(s): S92.501A - Displaced unspecified fracture of right lesser toe(s), initial encounter for closed fracture Category: Medical (2) Diabetes mellitus: Code(s): E11.9 - Type 2 diabetes mellitus without complications Category: Medical Qualifiers: Diabetes mellitus type: type 2 Diabetes mellitus mcc insulin use: with mcc use Diabetes mellitus complication status: with hyperglycemia Qualified Code(s): E11.65 - Type 2 diabetes mellitus with hyperglycemia; Z79.4 - 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 Yossi Stark is a 68-year-old female who presents in the office today for an evaluation of fracture of the right fifth proximal phalanx of the toe. The patient presented to the ED on 09/12/24 status post stubbing the toe on the side of her bed which occurred on 09/07/24. She had an abrasion to the side of her small toe after the injury with continued pain and edema. X-rays of the right foot were obtained. Her right fourth and fifth toes were yumiko-taped and her right foot was placed in a post-op shoe. She was prescribed naproxen 500 mg PO Q12H PRN for pain and cephalexin 500 mg PO TID for 7 days for possible risk of wound infection near the fracture site due to history of diabetes mellitus. While in the office today, the patient reports intermittent numbness and tingling in the right foot. She was provided a post-op shoe which helped with her pain. The patient has a significant medical history of diabetes mellitus. The patient was encouraged to discontinue the use of post-op shoes and transition into a supportive tennis shoe. She can return to normal activities as tolerated. Follow-up will be PRN, or sooner if needed. X-rays of the right foot, which were obtained while in the office today and were reviewed by me, Winter Perez PA-C, revealed: Redemonstration of right proximal fifth phalanx fracture. X-rays of the right foot, obtained on 09/12/24, revealed: Acute fracture of the proximal fifth phalanx. Orders: Orders XR foot RT min 3V 10/01/24 M79.673 - Pain in unspecified foot Patient Instructions: Scribed by Radha Yip medical claims processor, for Winter Perez PA-C on 10/01/24 at 2:30 pm EST. 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
[2024-10-01 14:07] VITALS: BMI 24.6
== END 2024-10-01 14:23 | disposition home or self-care (01) ==
PROVIDERS: PCP Internal Medicine; Visit Provider Physician Assistant
DX: S92.501A Displaced unspecified fracture of right lesser toe(s), initial encounter for closed fracture (principal); E11.65 Type 2 diabetes mellitus with hyperglycemia; Z79.4 Long term (current) use of insulin
CPT/HCPCS: 99213

== ENCOUNTER 2024-11-16 14:36 | Emergency (ER) | payer OTHER, SELFPAY ==
--- NOTE | ~2024-11-16 | XR_ITS ---
EXAMINATION: XR WRIST, LEFT CLINICAL INFORMATION: fall COMPARISON: None available. TECHNIQUE: PA, lateral, oblique, and scaphoid views of the left wrist. FINDINGS: Comminuted, intra-articular distal radial fracture without significant displacement, and minimal volar angulation. No significant impaction. No articular step-off. No additional fracture evident. Carpal bones are intact and normally aligned. The ulna is intact. The ulnar styloid is intact. There is soft tissue swelling about the wrist. XR/XR wrist LT min 3V IMPRESSION: Comminuted intra-articular minimally displaced distal radial fracture. Electronically signed by: Pedro Arauz MD 11/16/2024 04:33 PM [facility]
[2024-11-16 15:44] VITALS: BP 139/68; PULSE 92; RESP 18; TEMP 36.7; O2SAT 98; BMI 24.8
[2024-11-16 19:40] VITALS: BP 157/78; PULSE 82; RESP 16; TEMP 37.1; O2SAT 97
--- NOTE | 2024-11-16 19:44 | ED.EXTPRO ---
HPI - Extremity Problem General Chief complaint: Extremity Injury, Upper Stated complaint: l hand inj fall Time Seen by Provider: 11/16/24 19:44 History of Present Illness ED Provider: Liudmila KEMP Narrative: The patient is a 69-year-old woman who slipped on ice crossing a street. She fell forward and landed on her outstretched left thumb injuring her left wrist. No other injuries. She is not on any anticoagulation. She did not hit her head. No syncope. Related Data Home Medications ?Medication ?Instructions ?Recorded ?Confirmed blood sugar diagnostic (FreeStyle 01/31/23 07/30/24 Lite Strips) Previous Rx's ?Medication ?Instructions ?Recorded acetaminophen 500 mg tablet 1,000 mg (2 x 500 mg) PO QID PRN 01/31/23 pain #30 tabs blood sugar diagnostic (FreeStyle #100 ea 09/24/23 Lite Strips) flash glucose sensor (FreeStyle #1 ea 10/10/23 Bronson 14 Day Sensor kit) lancets 28 gauge #100 ea 10/10/23 pen needle, diabetic 31 gauge x #50 ea 10/10/23 5/16 (1st Tier Unifine Pentips) ondansetron 4 mg disintegrating 4 mg PO Q6-8H PRN nausea and 12/24/23 tablet vomiting #10 tabs oxymetazoline 0.05 % nasal spray 2 spray intranasal Q12H PRN nasal 05/07/24 (Afrin (oxymetazoline)) congestion 5 days #22 mL azelastine 137 mcg (0.1 %) nasal 2 spray intranasal BID 30 days #30 07/10/24 spray mL budesonide-formoterol HFA 160 2 puff inhalation BID 30 days 07/10/24 mcg-4.5 mcg/actuation aerosol #10.2 grams inhaler fluticasone propionate 50 2 spray intranasal DAILY 30 days 07/10/24 mcg/actuation nasal #15.8 mL spray,suspension empagliflozin 25 mg tablet 25 mg PO DAILY 90 days #90 tabs 07/30/24 (Jardiance) insulin glargine 100 unit/mL (3 25 unit (0.25 mL) subcut BEDTIME 07/30/24 mL) subcutaneous pen 90 days #22.5 mL ezetimibe 10 mg tablet 10 mg PO DAILY #90 tabs 09/01/24 cephalexin 500 mg capsule 500 mg PO TID 7 days #21 caps 09/12/24 naproxen 500 mg tablet 500 mg PO Q12H PRN pain (scale 09/12/24 score 1-3) #20 tabs rosuvastatin 10 mg tablet 10 mg PO DAILY 90 days #90 tabs 09/16/24 recliner #1 ea 09/20/24 metformin 500 mg tablet,extended 1,000 mg (2 x 500 mg) PO BID 90 11/01/24 release 24 hr days #360 tabs morphine 15 mg immediate release 15 mg PO Q6H PRN pain #12 tabs 11/16/24 tablet Allergies Allergy/AdvReac Type Severity Reaction Status Date / Time atorvastatin [ATORVASTATIN] AdvReac Intermediate MYALGIA, Verified 11/16/24 15:49 myalgias lisinopril [LISINOPRIL] AdvReac Intermediate DIZZINESS, Verified 11/16/24 15:49 diziness januvia AdvReac Intermediate abdominal Uncoded 11/16/24 15:49 discomfort Review of Systems Review of Systems: Yes all other systems are reviewed and are negative [facility] Past Medical History Medical History Coronary artery calcification Sinusitis Dyspnea Blurry vision Right hip pain B12 deficiency shelter (current) use of insulin Diabetes type 2, uncontrolled Dyslipidemia Microalbuminuria Surgical History H/O colonoscopy Hx of myomectomy Hx of eye surgery Hx of tubal ligation Family History Family History Father Hypertension Mother Diabetes Alzheimer disease Mental health disorder Maternal Grandmother Diabetes Social History Social History Housing: Apartment Alcohol intake: never Patient Tobacco Use Status: Never used Tobacco e-Cigarette/Vaping Use: Never Used Second Hand Smoke Exposure: No Advance Directives: No Advance Directives Information Provided: Yes Do you have a plan to hurt others: No Plan service: No 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al status: disabled 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 Cognitive needs: No Hearing needs: No Vision needs: No Physical Exam Vital Signs: Vital Signs: Last Vital Signs Temp 98.4 F 11/16/24 21:03 Pulse 86 11/16/24 21:03 Resp 20 11/16/24 21:03 BP 156/78 H 11/16/24 21:03 Pulse Ox 98 11/16/24 21:03 O2 Del Method Room Air 11/16/24 21:03 BMI result Body Mass Index 24.8 Const: Other: the patient is awake, alert, pleasant, cooperative. She looks as if he is ordinarily healthy 69-year-old. HEENT: Other: No signs of trauma to the head or the face. Eyes: General: appearance normal, both eyes and all related structures Neck: Other: No posterior C-spine tenderness. Good range of motion of the neck without pain. C-spine is clinically clear. Resp: Effort & Inspection: normal respiratory effort Auscultation: clear to auscultation bilaterally Cardio: Rate: regular rate Rhythm: regular rhythm Heart sounds: S1 normal heart sound present and S2 normal heart sound present Skin: Other: The skin of the left wrist is intact. Neuro: Other: the patient is awake and alert with normal mental status. Normal sensation and function of the fingers of the left hand except as limited by pain Extrem: Other: there is swelling and tenderness of the left wrist without gross deformity. Skin is intact. Medications Administered Discontinued Medications Generic Name Dose Route Start Last Admin Trade Name Jaredq PRN Reason Stop Dose Admin Acetaminophen 975 mg 11/16/24 19:59 11/16/24 20:10 Acetaminophen 325 Mg Tablet PO 11/16/24 20:00 975 mg ONCE ONE Administration Ketorolac Tromethamine 30 mg 11/16/24 19:58 11/16/24 20:10 Ketorolac Tromethamine 30 Mg/Ml Vial IM 11/16/24 19:59 30 mg ONCE ONE Administration Medical Decision Making Medical Decision Making MDM Narrative: The patient is very pleasant 69-year-old woman who slipped and fell on an outstretched left hand injuring her left wrist. She has a comminuted intra-articular minimally displaced distal radial fracture. I did not feel the fracture required manipulation. The patient was placed in a sugar-tong splint using cast padding, ortho glass, and Ochoa bandages. the patient tolerated application of the splint well. She was given a sling. She is referred to Orthopedics. Procedures Orthopedic Splinting/Casting Injury #1: Side: left Upper Extremity Injury Location: wrist Upper Extremity Immobilizer: sugar tong splint Additional Comments: Sugar-tong splint applied with cast padding, ortho glass, and Ochoa bandages. The patient tolerated application of the splint well and remained neurovascularly intact after application of the splint. She was given a sling. Discharge Plan Discharge Clinical Impression: Closed fracture of left distal radius Patient Disposition: Home, Self-Care Instructions: Wrist Fracture in Adults (ED) Additional Instructions: You have broken your bone near your wrist. You have been placed in a splint. Please keep your wrist elevated to the level of your heart or higher. This will reduce swelling and reduce pain. Do not dangle the arm. For pain you may take acetaminophen. Take two 500 mg acetaminophen (Tylenol) tablets up to 3 times per day. I have also sent a prescription for morphine tablets. Morphine has a strong pain medication which might make you dizzy. It would probably be taking only half a tablet to begin with his see how well you tolerated it. Please call the orthopedic office in the morning to arrange a follow up appointment soon for further recommendations regarding this injury. You may also always contact your primary care doctor's office for additional advice as needed. Return to the emergency room if you feel significantly worse. Prescriptions: New morphine 15 mg tablet 15 mg PO Q6H PRN (Reason: pain) Qty: 12 0RF Rx Instructions: Partial Fill upon patient request. No Action (DME) FreeStyle Lite Strips Strip See Rx Instructions .Route Qty: 100 11RF Rx Instructions: As directed to test 3 times a day (DME) FreeStyle Bronson 14 Day Sensor Kit See Rx Instructions .Route Qty: 1 11RF Rx Instructions: As directed (DME) pen needle, diabetic [1st Tier Unifine Pentips] 31 gauge x 5/16 needle See Rx Instructions .ROUTE .MEDSUPPLY Qty: 50 11RF Rx Instructions: once a day (DME) lancets 28 gauge misc See Rx Instructions topical .MEDSUPPLY Qty: 100 6RF Rx Instructions: 3 times a day ezetimibe 10 mg tablet 10 mg PO DAILY Qty: 90 0RF rosuvastatin 10 mg tablet 10 mg PO DAILY 90 Days Qty: 90 1RF (DME) recliner See Rx Instructions .Route .MEDSUPPLY Qty: 1 0RF Rx Instructions: As directed metformin 500 mg tablet extended release 24 hr 1,000 mg PO BID 90 Days Qty: 360 0RF Rx Instructions: Future refills to pcp. ondansetron 4 mg tablet,disintegrating 4 mg PO Q6-8H PRN (Reason: nausea and vomiting) Qty: 10 0RF naproxen 500 mg tablet 500 mg PO Q12H PRN (Reason: pain (scale score 1-3)) Qty: 20 0RF cephalexin 500 mg capsule 500 mg PO TID 7 Days Qty: 21 0RF (DME) FreeStyle Lite Strips Strip See Rx Instructions .Route Rx Instructions: As directed acetaminophen 500 mg tablet 1,000 mg PO QID PRN (Reason: pain) Qty: 30 0RF oxymetazoline [Afrin (oxymetazoline)] 0.05 % spray,non-aerosol 2 spray intranasal Q12H PRN (Reason: nasal congestion) 5 Days Qty: 22 0RF budesonide-formoterol 160-4.5 mcg/actuation HFA aerosol inhaler 2 puff inhalation BID 30 Days Qty: 10.2 11RF azelastine 137 mcg (0.1 %) spray,non-aerosol 2 spray intranasal BID 30 Days Qty: 30 6RF Rx Instructions: administer into each nostril fluticasone propionate 50 mcg/actuation spray,suspension 2 spray intranasal DAILY 30 Days Qty: 15.8 11RF Jardiance 25 mg tablet 25 mg PO DAILY 90 Days Qty: 90 1RF insulin glargine 100 unit/mL (3 mL) insulin pen 25 unit subcut BEDTIME 90 Days Qty: 22.5 3RF Referrals: [facility] [place] Orthopedic Surgeons [Provider Group] (Left distal radius fracture) Interventions: ED Discharge Assessment Last Done: 11/16/24 21:03 Discharge Date/Time: 11/16/24 21:09 Print Language: Hebrew
[2024-11-16] MEDS: Ketorolac Tromethamine 30 MG/ML VIAL IM (20:10)
[2024-11-16] MEDS: Acetaminophen 325 MG TABLET 975 MG PO (20:10)
--- OUTSIDE RECORDS SUMMARY | 2024-11-16 20:33 | XMS_ITS | Clinical Summary ---
Author Organization [employer] Address [address] [place] [address] Care Team Providers Care Tie Bucker Name Role Phone Unavailable Primary Care Provider Unavailabl e Social History Tobacco Use Types Packs/Day Years Used Date Smoking Tobacco: Never Assessed Comments Unknown Sex and Gender Information Value Date Recorded Sex Assigned at Female 08/06/2022 10:22 AM EDT Legal Sex Female 10:22 AM EDT Gender Identity Not on file Sexual Orientation Not on file Plan of Treatment Health Maintenance Due Date Last Done Comments CT Colonography 1956 Colonoscopy 1956 Colorectal Cancer Screening 1956 Depression Screening 1956 FIT DNA/Cologuard 1956 FIT 1956 FOBT 1956 Sigmoidoscopy 1956 Alcohol/Substance Use Screening 1968 Tobacco Screening 1968 DTaP/Tdap/Td Vaccines (1 - Tdap) 1975 Mammogram 1996 Pneumococcal Vaccine: 50+ Ye ars (1 of 1 - PCV) 2006 Zoster Vaccines (1 of 2) 2006 COVID-19 Vaccine ( - 2023-2 5 season) 2024 Influenza Vaccine (#1) 2024 RSV Patients and Pa tients Aged 60 years or older (1 - 1-dose 75+ series) 2031 HIB Vaccines Aged Out No longer eligi ble based on patient's age to complete this topic HPV Vaccines Aged Out No longer eligi ble based on patient's age to complete this topic Hepatitis A Vaccines Aged Out No long er eligible based on patient's age to complete this topic Hepatitis B Vaccines Aged Out No long er eligible based on patient's age to complete this topic IPV Vaccines Aged Out No longer eligi ble based on patient's age to complete this topic Meningococcal Vaccine Aged Out No dustin jame eligible based on patient's age to complete this topic RSV under 20 months Aged Out No longe r eligible based on patient's age to complete this topic Rotavirus Vaccines Aged Out No longer eligible based on patient's age to complete this topic
[2024-11-16 21:02] VITALS: BP 156/78; PULSE 86; RESP 20; TEMP 36.9; O2SAT 98
[2024-11-16 21:03] VITALS: BP 156/78; PULSE 86; RESP 20; TEMP 36.9; O2SAT 98
== END 2024-11-16 21:09 | disposition home or self-care (01) ==
PROVIDERS: Emergency Provider Emergency Medicine; PCP Internal Medicine
DX: S52.502A Unspecified fracture of the lower end of left radius, initial encounter for closed fracture (principal); W00.0XXA Fall on same level due to ice and snow, initial encounter; Y93.89 Activity, other specified; Y92.89 Other specified places as the place of occurrence of the external cause; Y99.9 Unspecified external cause status
CPT/HCPCS: 73110; 96372; 99284; J1885

== ENCOUNTER → 2024-11-16 16:00 | Outpatient (BNV) | payer OTHER, SELFPAY | PROVIDERS: PCP Internal Medicine; Visit Provider Radiology Diagnostic Radiology | DX: S52.572A Other intraarticular fracture of lower end of left radius, initial encounter for closed fracture (principal) | CPT/HCPCS: 73110 ==

== ENCOUNTER 2024-12-01 11:00 | Outpatient (REF) | payer OTHER, SELFPAY ==
--- NOTE | ~2024-12-01 | XR_ITS ---
EXAMINATION: XR WRIST, LEFT CLINICAL INFORMATION: M25.532 - Pain in left wrist COMPARISON: Left wrist 11/16/2024 TECHNIQUE: PA, lateral, and oblique views of the left wrist. FINDINGS: There is a comminuted distal radial intra-articular fracture with minimal displacement . No additional fractures seen. The distal ulna, carpal bones are intact. The soft tissues are normal. XR/XR wrist LT min 3V IMPRESSION: Comminuted distal radial fracture with intra-articular extension and mild soft tissue swelling, unchanged. There is mild soft tissue swelling. Electronically signed by: Johann Smart MD 12/08/2024 12:55 PM EST
--- OUTSIDE RECORDS SUMMARY | 2024-12-01 14:10 | XMS_ITS | Clinical Summary ---
Author Organization [employer] Address [address] [place] [address] Care Team Providers Care Experimental Psychologist Name Role Phone Unavailable Primary Care Provider [...]
== END 2024-12-01 11:01 | disposition home or self-care (01) ==
LOC: HO.HOSX 11:00
PROVIDERS: PCP Internal Medicine; Visit Provider Orthopaedic Surgery
DX: S52.502D Unspecified fracture of the lower end of left radius, subsequent encounter for closed fracture with routine healing (principal); M25.532 Pain in left wrist; R00.2 Palpitations; R00.0 Tachycardia, unspecified; E11.65 Type 2 diabetes mellitus with hyperglycemia; Z79.4 Long term (current) use of insulin
CPT/HCPCS: 25600; 73110; 99202

== ENCOUNTER 2024-12-01 11:00 | Outpatient (AMB) | payer OTHER, SELFPAY ==
--- NOTE | 2024-12-01 11:11 | MHC.OFFVIS ---
Vital Signs 12/01/24 11:18 Height 5 ft 5 in Weight 149 lb BMI 24.8 Intake Visit Reasons: FC Left distal radius fx DOI 11/16/24 Intake Note: Lisa is a 69 year old right hand dominant female who presents today for an ER follow up of left distal radius fracture, DOI 11/16/24. Patient reports that she slipped and fell on ice landing on her left arm. She presented to [facility] ER that same day where x-rays were taken and placed in a splint. Currently she has strong pain unsure if the splint is pressing on broken bone. She has numbness and tingling in her hand. Secondary School Registrar Required: Yes Secondary School Registrar Services: Secondary School Registrar Present Secondary School Registrar Name: Vannessa ID#[id number] Allergies atorvastatin [ATORVASTATIN] Adverse Reaction (Intermediate, Verified 12/01/24 11:28) MYALGIA, myalgias lisinopril [LISINOPRIL] Adverse Reaction (Intermediate, Verified 12/01/24 11:28) DIZZINESS, diziness januvia Adverse Reaction (Intermediate, Uncoded 12/01/24 11:28) abdominal discomfort HPI HPI FC Left distal radius fx DOI 11/16/24: Details: Lisa is a 69 year old right hand dominant Greek speaking woman who presents for a left distal radius fracture, S/P fall, DOI: 11/16/24. She was seen in the ED and placed in a Suagr-tong splint. Apparently the referral system was down for several days and she was not referred to our office after her ED visit. She complains of pain in her wrist. She says she feels her splint is pushing down on her bone. She also complains of numbness & tingling in her hand. She says this began after her fall. [facility] Medical History (Updated 12/01/24 @ 11:39 by Ernie Zambrano) Numbness and tingling in left hand Coronary artery calcification Sinusitis Dyspnea Blurry vision Right hip pain B12 deficiency [facility] (current) use of insulin Diabetes type 2, uncontrolled Dyslipidemia Microalbuminuria Surgical History H/O colonoscopy Hx of myomectomy Hx of eye surgery Hx of tubal ligation Family History Father Hypertension Mother Diabetes Alzheimer disease Mental health disorder Maternal Grandmother Diabetes Social History Housing: Apartment Alcohol intake: never Patient Tobacco Use Status: Never used Tobacco e-Cigarette/Vaping Use: Never Used Second Hand Smoke Exposure: No service: No 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al status: disabled 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 Cognitive needs: No Hearing needs: No Vision needs: No Review of Systems Const All systems reviewed & are unremarkable except as noted in HPI and below Physical Exam Vital Signs: BMI result Body Mass Index 24.8 Const General: cooperative, healthy appearing and no acute distress Orientation/consciousness: patient oriented x3 HEENT Head: Yes normocephalic and Yes atraumatic Eyes EOM: EOMs intact bilaterally Resp Effort & Inspection: normal respiratory effort and able to speak in complete sentences Cardio Jugular venous distension: no JVD Skin General skin exam: turgor normal Rashes: no rashes Neuro General: patient oriented x3 Extrem Other: Evaluation of Left Upper Extremity: The patient is alert, oriented, and in no acute distress Neuro: Median, Ulnar, Radial nerves motor and sensory intact and sensation is normal to the tips of all digits Vascular: Cap refill brisk ROM: She can make a fist and extend all her digits Skin: No lacerations or abrasions. General: No Ecchymosis. No Erythema or evidence of infection. Radiographs: 3 views of the left wrist were taken and viewed by me today in clinic. They show a distal radius Volar thomas fracture with [ ]. Psych Appearance: grossly normal Affect: normal affect Attitude: cooperative Office Procedures AMB Fracture Care Details: Fracture care distal radius [id number] Fracture Billing Code: Fracture Billing Code Assessment & Plan Assessment & Plan (1) Closed fracture of left distal radius: Code(s): S52.502A - Unspecified fracture of the lower end of left radius, initial encounter for closed fracture Category: Medical (2) Numbness and tingling in left hand: Code(s): R20.0 - Anesthesia of skin; R20.2 - Paresthesia of skin Category: Medical (3) Diabetes mellitus: Code(s): E11.9 - Type 2 diabetes mellitus without complications Category: Medical Qualifiers: Diabetes mellitus complication status: with hyperglycemia Diabetes mellitus shelter insulin use: with exterminator termite use Diabetes mellitus type: type 2 Qualified Code(s): E11.65 - Type 2 diabetes mellitus with hyperglycemia; 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 Left distal radius fracture, intra-articular volar thomas fracture From a fall, DOI: 11/16/24 Seen in ED 11/16/24, she has been in a Sugar-tong splint since First seen today, 15 days post injury I discussed operative and non-operative treatment options Again she is now 15 days post injury. The fracture is now partially healed, and is still fortunately minimally displaced. I educated the patient about this injury, and explained that had we seen this earlier than today, that we would have taken this to surgery. As the injury is already partially healed, and overall alignment is satisfactory, we are going to place her in a short-arm [place] cast. I discussed the importance of activity modifications, she is to lift nothing heavier than a cellphone for the next 2 weeks She will perform gentle finger ROM exercises at home 2. Left hand numbness In the median nerve distribution S/P fall, DOI: 11/16/24 She may benefit from a carpal tunnel release once the fracture is healed satisfactorily. Follow-up in 2 weeks with radiographs three views of the left wrist out of plaster. Scribed for Diana Shoemaker MD by Ernie Zambrano, medical officer, on 12/01/24 at 11:30 AM, EST. Orders: Orders XR wrist LT min 3V Today M25.532 - Pain in left wrist Coding Level of Care Code New Pt Level 4 (35726) Diagnoses Closed fracture of left distal radius S52.502A Numbness and tingling in left hand R20.0; R20.2 Type 2 diabetes mellitus with hyperglycemia, with long-term current use of insulin E11.65; Z79.4 Diabetes mellitus complication status: with hyperglycemia Diabetes mellitus exterminator termite insulin use: with exterminator termite use Diabetes mellitus type: type 2 CPT Codes Fracture Care - Fracture Billing Code: Fracture Billing Code ([id number])
[2024-12-01 11:18] VITALS: BMI 24.8
--- OUTSIDE RECORDS SUMMARY | 2024-12-01 13:20 | XMS_ITS | Clinical Summary ---
Author Organization [employer] Address [address] [place] [address] Care Team Providers Care Educational Advisor Name Role Phone Unavailable Primary Care Provider [...]
== END 2024-12-01 12:58 | disposition home or self-care (01) ==
PROVIDERS: PCP Internal Medicine; Visit Provider Orthopaedic Surgery
DX: S52.502A Unspecified fracture of the lower end of left radius, initial encounter for closed fracture (principal); W00.0XXA Fall on same level due to ice and snow, initial encounter; R20.2 Paresthesia of skin; E11.65 Type 2 diabetes mellitus with hyperglycemia; Z79.4 Long term (current) use of insulin
CPT/HCPCS: 25600; 99204

== ENCOUNTER → 2024-12-01 11:40 | Outpatient (BNV) | payer OTHER, SELFPAY | PROVIDERS: PCP Internal Medicine; Visit Provider Radiology Diagnostic Radiology | DX: S52.572A Other intraarticular fracture of lower end of left radius, initial encounter for closed fracture (principal) | CPT/HCPCS: 73110 ==

== ENCOUNTER 2024-12-16 09:28 | Outpatient (REF) | payer OTHER, SELFPAY ==
--- NOTE | ~2024-12-16 | XR_ITS ---
EXAMINATION: XR WRIST 3 OR MORE VIEWS LEFT HISTORY: M25.532 - Pain in left wrist COMPARISON: Comparison is made with the prior examination dated 12/01/2024. FINDINGS: Three views of the left wrist are submitted. Osseous mineralization is normal. Again seen is a comminuted intra-articular fracture of the distal radius. The fracture lines remain visible. The joint spaces are preserved. There is mild soft tissue swelling. XR/XR wrist LT min 3V IMPRESSION: Comminuted intra-articular fracture of the distal radius without significant change. Electronically signed by: Dano Blair MD 12/17/2024 09:08 AM EDT
== END 2024-12-16 09:29 | disposition home or self-care (01) ==
LOC: HO.HOSX 09:28
PROVIDERS: Visit Provider Orthopaedic Surgery
DX: M25.532 Pain in left wrist (principal); S52.502A Unspecified fracture of the lower end of left radius, initial encounter for closed fracture; R20.0 Anesthesia of skin; R20.2 Paresthesia of skin; E11.65 Type 2 diabetes mellitus with hyperglycemia; Z79.4 Long term (current) use of insulin
CPT/HCPCS: 73110; 99212

== ENCOUNTER 2024-12-16 15:06 | Outpatient (AMB) | payer OTHER, SELFPAY ==
[2024-12-16 15:30] VITALS: BMI 24.8
--- NOTE | 2024-12-16 15:30 | A.OFFVIS_ITS ---
Vital Signs 12/16/24 15:30 Height 5 ft 5 in Weight 149 lb BMI 24.8 Intake Visit Reasons: OV-LT distal radius fx DOI 11/16/24-w/xr cast off Intake Note: Lisa 69 yr old right hand dominant female presents today for her follow up visit for her left distal radius fracture DOI 11/16/24. Cast removed and xrays updated in office. States she is currently doing well and has had a little pain. Allergies atorvastatin [ATORVASTATIN] Adverse Reaction (Intermediate, Verified 12/16/24 15:41) MYALGIA, myalgias lisinopril [LISINOPRIL] Adverse Reaction (Intermediate, Verified 12/16/24 15:41) DIZZINESS, diziness januvia Adverse Reaction (Intermediate, Uncoded 12/16/24 15:41) abdominal discomfort HPI HPI OV-LT distal radius fx DOI 11/16/24-w/xr cast off: Details: Lisa is a 69 year old right hand dominant Diabetic British speaking woman who returns for a left distal radius fracture, S/P fall, DOI: 11/16/24. She was seen in the ED and placed in a Sugar-tong splint. She says she is doing well, with only mild pain. She denies doing anything heavy in the last few weeks. She also complains of numbness & tingling in her hand. She says this began after her fall. 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 Diabetes type 2, uncontrolled Dyslipidemia Microalbuminuria Surgical History H/O colonoscopy Hx of myomectomy Hx of eye surgery Hx of tubal ligation Family History Father Hypertension Mother Diabetes Alzheimer disease Mental health disorder Maternal Grandmother Diabetes Social History Housing: Apartment Alcohol intake: never Patient Tobacco Use Status: Never used Tobacco e-Cigarette/Vaping Use: Never Used Second Hand Smoke Exposure: No service: No 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al status: disabled 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 Cognitive needs: No Hearing needs: No Vision needs: No Review of Systems Const All systems reviewed & are unremarkable except as noted in HPI and below Physical Exam Vital Signs: BMI result Body Mass Index 24.8 Const General: no acute distress and alert Orientation/consciousness: patient oriented x3 Neuro General: patient oriented x3 Extrem Other: Evaluation of Left Upper Extremity: The patient is alert, oriented, and in no acute distress Neuro: Median, Ulnar, Radial nerves motor and sensory intact and sensation is normal to the tips of all digits Vascular: Cap refill brisk Surprisingly, patient reports no discomfort at the fracture site. She can make a fist and extend all of her digits without discomfort She demonstrates that she only has pain when she tries to flex her wrist. Only very minimally tender to firm palpation at the fracture site. Radiographs: 3 views of the left wrist were taken and viewed by me today in clinic. They show a distal radius Volar thomas fracture with some increased displacement in comparison with radiographs 2 weeks ago, and an approximately 2.5 mm step-off. There is some interval bony healing Psych Appearance: grossly normal Affect: normal affect Attitude: cooperative Assessment & Plan Assessment & Plan (1) Closed fracture of left distal radius: Code(s): S52.502A - Unspecified fracture of the lower end of left radius, initial encounter for closed fracture Category: Medical (2) Numbness and tingling in left hand: Code(s): R20.0 - Anesthesia of skin; R20.2 - Paresthesia of skin Category: Medical (3) Diabetes mellitus: Code(s): E11.9 - Type 2 diabetes mellitus without complications Category: Medical Qualifiers: Diabetes mellitus complication status: with hyperglycemia 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 Left distal radius fracture, intra-articular volar thomas fracture From a fall, DOI: 11/16/24 Seen in ED 11/16/24 First seen here 12/01/24, S/P injury With increased displacement since last visit, and interval bony healing 2. Left hand numbness In the median nerve distribution S/P fall, DOI: 11/16/24 Resolved We had a long conversation today about the risks and benefits of surgery vs continuing to manage this non-operatively She is a poorly controlled diabetic, her most recent HgA1c was 12.3% on 07/30/24 She has no pain unless she tries to force her wrist while in flexion There is some evidence of interval bony healing. We did discuss the fact that the it is possible that she could have further displacement of the fracture which could possibly necessitate operative intervention. We have decided to try and continue to allow this to heal non operatively. She was placed in a short arm cast, supporting the volar aspect of her wrist, for the next 3 weeks I discussed the importance of activity modifications, she is to lift nothing heavier than a cellphone for the next 4 weeks She will perform gentle finger ROM exercises at home She will follow up in 3 weeks, with X-rays, 3V L wrist, OOP This should be a 30 minute appointment with me Scribed for Diana Shoemaker MD by Ernie Zambrano, medical coding auditor, on 12/16/24 at 3:50 PM, EST. Orders: Orders XR wrist LT min 3V 12/16/24 M25.532 - Pain in left wrist Coding Level of Care Code Global (87509) Diagnoses Closed fracture of left distal radius S52.502A Numbness and tingling in left hand R20.0; R20.2 Type 2 diabetes mellitus with hyperglycemia, with long-term current use of insulin E11.65; Z79.4 Diabetes mellitus complication status: with hyperglycemia Diabetes mellitus fdc insulin use: with remote computer terminal operator use Diabetes mellitus type: type 2
--- OUTSIDE RECORDS SUMMARY | 2024-12-16 17:46 | XMS_ITS | Clinical Summary ---
Author Organization [employer] Address [address] [facility] [address] [place] [address] Care Team Providers Care Extrusion Supervisor Name Role Phone Unavailable Primary Care Provider [...]
== END 2024-12-16 16:28 | disposition home or self-care (01) ==
LOC: HO.HOS 15:06
PROVIDERS: PCP Internal Medicine; Visit Provider Orthopaedic Surgery
DX: S52.502A Unspecified fracture of the lower end of left radius, initial encounter for closed fracture (principal); R20.0 Anesthesia of skin; R20.2 Paresthesia of skin; E11.65 Type 2 diabetes mellitus with hyperglycemia; Z79.4 Long term (current) use of insulin
CPT/HCPCS: 99024

== ENCOUNTER → 2024-12-16 15:13 | Outpatient (BNV) | payer OTHER, SELFPAY | PROVIDERS: Visit Provider Radiology Diagnostic Radiology | DX: S52.572A Other intraarticular fracture of lower end of left radius, initial encounter for closed fracture (principal) | CPT/HCPCS: 73110 ==

== ENCOUNTER 2025-01-06 10:43 | Outpatient (REF) | payer OTHER, SELFPAY ==
--- NOTE | ~2025-01-06 | XR_ITS ---
EXAMINATION: XR WRIST 3 OR MORE VIEWS LEFT HISTORY: M25.532 - Pain in left wrist COMPARISON: Comparison is made with the prior examination dated 12/16/2024. FINDINGS: Four views of the left wrist are submitted. Osseous mineralization is normal. Again seen is a comminuted intra-articular fracture of the distal radial metaphysis. There is slightly greater callus formation noted, consistent with healing. The fracture line remains visible. The joint spaces are preserved. The soft tissues are unremarkable. XR/XR wrist LT min 3V IMPRESSION: Healing comminuted intra-articular fracture of the distal radial metaphysis. Electronically signed by: Dano Blair MD 01/06/2025 03:34 PM EDT
--- OUTSIDE RECORDS SUMMARY | 2025-01-06 12:46 | XMS_ITS | Clinical Summary ---
Author Organization [email or web address] Address [address] [facility] [address] [place] [address] Care Team Providers Care Senior Process Control Tech Name Role Phone Unavailable Primary Care Provider [...]
== END 2025-01-06 10:44 | disposition home or self-care (01) ==
LOC: HO.HOSX 10:43
PROVIDERS: Visit Provider Orthopaedic Surgery
DX: M25.532 Pain in left wrist (principal); S52.502D Unspecified fracture of the lower end of left radius, subsequent encounter for closed fracture with routine healing; R20.0 Anesthesia of skin; R20.2 Paresthesia of skin; E11.65 Type 2 diabetes mellitus with hyperglycemia; Z79.4 Long term (current) use of insulin
CPT/HCPCS: 73110; 99212

== ENCOUNTER 2025-01-06 10:50 | Outpatient (AMB) | payer OTHER, SELFPAY ==
--- NOTE | 2025-01-06 10:57 | A.OFFVIS_ITS ---
Vital Signs 01/06/25 11:04 Height 5 ft 5 in Weight 149 lb BMI 24.8 Intake Visit Reasons: OV-LT distal radius fx DOI 11/16/24-w/xr cast off Intake Note: Lisa 69 yr old female presents today for her follow up visit for her left distal radius fx DOI 11/16/24. Cast removed and xrays updated in office. States she is doing well, states her wrist feels weird with cast removed. Allergies atorvastatin [ATORVASTATIN] Adverse Reaction (Intermediate, Verified 01/06/25 11:05) MYALGIA, myalgias lisinopril [LISINOPRIL] Adverse Reaction (Intermediate, Verified 01/06/25 11:05) DIZZINESS, diziness januvia Adverse Reaction (Intermediate, Uncoded 01/06/25 11:05) abdominal discomfort HPI HPI OV-LT distal radius fx DOI 11/16/24-w/xr cast off: Details: Lisa is a 69 year old right hand dominant Diabetic [place] speaking woman who returns for a left distal radius fracture, S/P fall, DOI: 11/16/24. She was seen in the ED and placed in a Sugar-tong splint. She says she is doing well, with only mild pain. She denies doing anything heavy in the last few weeks. She also complains of numbness & tingling in her hand. She says this began after her fall. 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 Diabetes type 2, uncontrolled Dyslipidemia Microalbuminuria Surgical History H/O colonoscopy Hx of myomectomy Hx of eye surgery Hx of tubal ligation Family History Father Hypertension Mother Diabetes Alzheimer disease Mental health disorder Maternal Grandmother Diabetes Social History Housing: Apartment Alcohol intake: never Patient Tobacco Use Status: Never used Tobacco e-Cigarette/Vaping Use: Never Used Second Hand Smoke Exposure: No service: No 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al status: disabled 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 Cognitive needs: No Hearing needs: No Vision needs: No Physical Exam Vital Signs: BMI result Body Mass Index 24.8 Const General: no acute distress and alert Orientation/consciousness: patient oriented x3 Neuro General: patient oriented x3 Extrem Other: Evaluation of Left Upper Extremity: The patient is alert, oriented, and in no acute distress Neuro: Median, Ulnar, Radial nerves motor and sensory intact and sensation is normal to the tips of all digits Vascular: Cap refill brisk Some pain when pushing on the volar side of the distal radius No pain when palpating the dorsal side of the distal radius She can make a fist and extend all of her digits without discomfort Full & symmetrical pronosupination Wrist Extension: ~40 degrees She demonstrates that she only has discomfort when she tries to flex her wrist, improved from prior Radiographs: 3 views of the left wrist were taken and viewed by me today in clinic. They show a distal radius Volar thomas fracture with no furter displacement seen compared to radiographs from 12/16/24 and an ~2.5 mm step-off. There is some interval bony healing now though the fracture line is still visible Psych Appearance: grossly normal Affect: normal affect Attitude: cooperative Assessment & Plan Assessment & Plan (1) Closed fracture of left distal radius: Code(s): S52.502A - Unspecified fracture of the lower end of left radius, initial encounter for closed fracture Category: Medical (2) Numbness and tingling in left hand: Code(s): R20.0 - Anesthesia of skin; R20.2 - Paresthesia of skin Category: Medical (3) Diabetes mellitus: Code(s): E11.9 - Type 2 diabetes mellitus without complications Category: Medical Qualifiers: Diabetes mellitus complication status: with hyperglycemia 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 Left distal radius fracture, intra-articular volar thomas fracture From a fall, DOI: 11/16/24 Seen in ED 11/16/24 First seen here 12/01/24, S/P injury With increased displacement since last visit, and interval bony healing 2. Left hand numbness In the median nerve distribution S/P fall, DOI: 11/16/24 Resolved We will continue to manage this non-operatively She is a poorly controlled diabetic, her most recent HgA1c was 12.3% on 07/30/24 She has no pain unless she tries to force her wrist while in flexion There is some evidence of interval bony healing and no evidence of further displacement compared to her last appointment. We did discuss the fact that the it is possible that she could have further displacement of the fracture which could possibly necessitate operative intervention. She was fitted for a velcro wrist splint, to be worn like a cast except for showering, for the next 4 weeks. She will remove this at home at rest to work on wrist extension exercises, no wrist flexion exercises. I discussed the importance of activity modifications, she is to lift nothing heavier than a cellphone for the next 4 weeks. She is to avoid any falls or heavy impact activities. She will follow up in 4 for a ROM check, with X-rays, 3V L wrist, OOP. Hopefully we can discontinue her splint at that time. Scribed for Diana Shoemaker MD by Ernie Zambrano, medical records auditor, on 01/06/25 at 11:00 AM, EST. Orders: Orders XR wrist LT min 3V Today M25.532 - Pain in left wrist Coding Level of Care Code Global (54374) Diagnoses Closed fracture of left distal radius S52.502A Numbness and tingling in left hand R20.0; R20.2 Type 2 diabetes mellitus with hyperglycemia, with long-term current use of insulin E11.65; Z79.4 Diabetes mellitus complication status: with hyperglycemia Diabetes mellitus half-way insulin use: with hair machine operator use Diabetes mellitus type: type 2
[2025-01-06 11:04] VITALS: BMI 24.8
== END 2025-01-06 11:18 | disposition home or self-care (01) ==
LOC: HO.HOS 10:50
PROVIDERS: PCP Internal Medicine; Visit Provider Orthopaedic Surgery
DX: S52.502A Unspecified fracture of the lower end of left radius, initial encounter for closed fracture (principal); R20.0 Anesthesia of skin; R20.2 Paresthesia of skin; E11.65 Type 2 diabetes mellitus with hyperglycemia; Z79.4 Long term (current) use of insulin
CPT/HCPCS: 99024

== ENCOUNTER → 2025-01-06 10:53 | Outpatient (BNV) | payer OTHER, SELFPAY | PROVIDERS: Visit Provider Radiology Diagnostic Radiology | DX: S52.572D Other intraarticular fracture of lower end of left radius, subsequent encounter for closed fracture with routine healing (principal) | CPT/HCPCS: 73110 ==

== ENCOUNTER 2025-01-15 10:38 | Outpatient (AMB) | payer OTHER, SELFPAY ==
[2025-01-15 10:43] VITALS: BP 132/68; PULSE 73; O2SAT 99; BMI 26.4
--- NOTE | 2025-01-15 10:43 | A.OFFVIS_ITS ---
Vital Signs 01/15/25 10:43 Height 5 ft 5 in Weight 158 lb 11.725 oz BMI 26.4 BP 132/68 Blood Pressure Location Rt brachial Position Sitting Pulse 73 Pulse Source Pulse Oximeter Pulse Oximetry (%) 99 Oxygen Delivery Method Room Air Intake Visit Reasons: Dyspnea Allergies atorvastatin [ATORVASTATIN] Adverse Reaction (Intermediate, Verified 01/06/25 11:05) MYALGIA, myalgias lisinopril [LISINOPRIL] Adverse Reaction (Intermediate, Verified 01/06/25 11:05) DIZZINESS, diziness januvia Adverse Reaction (Intermediate, Uncoded 01/06/25 11:05) abdominal discomfort HPI Comments Details: The patient is a 69-year-old woman with an abnormal CT scan Findings. The patient apparently had been in usual state health until she started developing some upper abdominal discomfort. She went to the ER where she did have a CT scan of the abdomen and pelvis. No clear explanation for the abdominal discomfort although it was written the report that there was some pulmonary findings. I did personally review the CAT scan with the patient. I do appreciate bilateral atelectasis. May have been related to the abdominal discomfort and inability to expand her lungs. The patient did have some mosaic pattern and some areas suggesting some areas of lucency although I do not see any overt emphysema. The patient also has some airways but I would also did not appreciate any significant traction bronchiectasis as noted. I do not see any significant pulmonary fibrosis. I do believe that is mainly atelectasis. In meantime also patient did have significant coronary artery calcifications. The patient on further questioning states that she has a significant cardiac family history with both her sister and brother having to have cardiac surgery and also her father had a lot of issues. Her sister was only 60 years old when she had heart disease. In view of her cardiac history and abdominal discomfort needs to consider underlying cardiac etiologies as well. Therefore, will be reasonable to further address the discomfort in the findings with the stress echo. The patient also has significant sinusitis. She has had significant nasal congestion of the right nostril. Significant secretions in the side. She does have sinus pressure. Been uncomfortable for some time. She does have an ENT evaluation. Will go ahead and treat her with doxycycline and also often. Unfortunately she does have diabetes and therefore hold off on prednisone and also will hold off on Sudafed. The patient should continue the nasal spray. The patient will undergo pulmonary function study to address the question of COPD. Clinically she is asymptomatic so I do not foresee any issues. The patient is lifelong nonsmoker and she has used Biofreeze to but not regularly. The patient also will undergo sinus x-rays and chest x-ray. Will follow-up after her PFTs. If she develops any worsening symptoms prior to the next visit she is to call the office for further evaluation. 07/10/2024 The patient is here for a follow up visit. Doing better. Still have a nasal congestion and cough, mild to moderate in severity. Has been using the nasal therapies and will be going to ENT soon. We did review her PFTs and appeart that she developed laryngospasms during the study. She also noted to have obstructive airway disease. She needs to start Symbicort. In the meantime she was not able to get xrays or stress ECHO. 01/15/2025 the patient is here for a pulmonary follow-up visit. She has been having hard time with her therapy. She been having hard time tolerating her nasal sprays that are causing significant irritation to the nasal mucosa and sinuses. She gets a lot of irritation. And also the inhalers are constant significant hoarseness and irritation to the back of her throat. She is not feeling any better though. She is still having significant nasal congestion sinus pressure. Papi-ef-ifckpwew severity. Sometimes she does get some bloody drainage. The patient did have an ENT appointment which she had an accident and she had to change it now she is scheduled appointment in March. Hopefully they can see her then. Otherwise she can call and be added to a cancellation list. She still has significant nasal congestion and inflammation of the turbinates. I do not see any thrush on her exam. She has very diminished breath sounds. I do believe that will switch over to oral medications try to minimize on the irritation to her mucosa. Therefore will start her on her allergy medications in addition to nasal rinsing. We can always add additional medications if needed. As far as her asthma medications she is using a spacer right now. And she can go ahead and decrease the amount of Dulera that she uses to minimize side effects. Will have her follow-up in 3-4 months. If she does need additional therapy she can always call we can add potentially Sudafed or add budesonide to her Neti bottle. [facility] Medical History (Updated 01/17/25 @ 22:10 by Gian Chew MD) Asthma Numbness and tingling in left hand Coronary artery calcification Sinusitis Dyspnea Blurry vision Right hip pain B12 deficiency [facility] (current) use of insulin Diabetes type 2, uncontrolled Dyslipidemia Microalbuminuria Surgical History H/O colonoscopy Hx of myomectomy Hx of eye surgery Hx of tubal ligation Family History Father Hypertension Mother Diabetes Alzheimer disease Mental health disorder Maternal Grandmother Diabetes Social History Housing: Apartment Alcohol intake: never Patient Tobacco Use Status: Never used Tobacco e-Cigarette/Vaping Use: Never Used Second Hand Smoke Exposure: No service: No 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al status: disabled 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 Cognitive needs: No Hearing needs: No Vision needs: No Review of Systems Const Denies fever(s) and Denies weight loss Eyes Denies change in vision ENT Reports nasal congestion, Reports nasal discharge, Reports nasal obstruction, Reports post nasal drip and Reports sinus pressure Card Denies chest pain, Denies dyspnea and Denies dyspnea on exertion Resp Reports cough, Denies dyspnea, Denies dyspnea on exertion and Denies wheezing GI Reports as per HPI Musc Reports no additional complaints Skin/Breast Denies rash Joe/Lymph Denies lymphadenopathy Aller/Immun Denies wheezing Physical Exam Vital Signs: Last Vital Signs Pulse 73 01/15/25 10:43 BP 132/68 01/15/25 10:43 Pulse Ox 99 01/15/25 10:43 Oxygen Delivery Method Room Air 01/15/25 10:43 BMI result Body Mass Index 26.4 Const General: comfortable HEENT General nose exam: Abnormal mucous membranes and turbinates present erythematous and Nasal discharge present Neck Neck: Yes supple Chest Chest palpation & inspection: normal inspection of the chest Resp Effort & Inspection: normal respiratory effort Auscultation: clear to auscultation bilaterally GI Palpation (GI): Soft to palpation Skin General skin exam: no rashes or lesions noted Extrem General: Yes no clubbing, cyanosis or edema Assessment & Plan Assessment & Plan (1) Dyspnea: Code(s): R06.00 - Dyspnea, unspecified Category: Medical Qualifiers: Dyspnea type: dyspnea on exertion Qualified Code(s): R06.09 - Other forms of dyspnea (2) Sinusitis: Code(s): J32.9 - Chronic sinusitis, unspecified Category: Medical Qualifiers: Chronicity: chronic Sinusitis location: maxillary Qualified Code(s): J32.0 - Chronic maxillary sinusitis (3) Coronary artery calcification: Code(s): I25.10 - Atherosclerotic heart disease of [place] coronary artery without angina pectoris Category: Medical (4) Asthma: Code(s): J45.909 - Unspecified asthma, uncomplicated Category: Medical Qualifiers: Asthma severity: moderate Asthma persistence: persistent Asthma complication type: uncomplicated Qualified Code(s): J45.40 - Moderate persistent asthma, uncomplicated Plan start Zyrtec start Singulair sinus rinsing F/U with ENT Symbicort, ok to use as needed Fluticasone astelin nasal spray Bloodwork F/U 4-6 months Orders: Orders Immunoglobulin E 01/15/25 J32.0 - Chronic maxillary sinusitis, J45.909 - Unspecified asthma, uncomplicated Erythrocyte Sedimentation Rate 01/15/25 J32.0 - Chronic maxillary sinusitis, J45.909 - Unspecified asthma, uncomplicated Complete Blood Count Auto Diff 01/15/25 J32.0 - Chronic maxillary sinusitis, J45.909 - Unspecified asthma, uncomplicated Immunoglobulins,IgG IgA IgM 01/15/25 J32.0 - Chronic maxillary sinusitis, J45.909 - Unspecified asthma, uncomplicated Hypersensitive Pneumonitis Prf 01/15/25 J32.0 - Chronic maxillary sinusitis, J45.909 - Unspecified asthma, uncomplicated, R91.8 - Other nonspecific abnormal finding of lung field Medications: New cetirizine (Zyrtec) 10 mg PO DAILY 30 tabs 11RF allergy symptoms 30 days montelukast (Singulair) 10 mg PO BEDTIME 30 tabs 11RF 30 days J45.909 - Unspecified asthma, uncomplicated Coding Level of Care Code Est Pt Level 4 (04594) Complex EM visit Add On G2211 Diagnoses Dyspnea on exertion R06.09 Dyspnea type: dyspnea on exertion Chronic maxillary sinusitis J32.0 Chronicity: chronic Sinusitis location: maxillary Coronary artery calcification I25.10 Moderate persistent asthma without complication J45.40 Asthma severity: moderate Asthma persistence: persistent Asthma complication type: uncomplicated Time Spent (min) 17
--- OUTSIDE RECORDS SUMMARY | 2025-01-15 11:29 | XMS_ITS | Clinical Summary ---
Author Organization [employer] Address [address] [facility] [address] [place] [address] Care Team Providers Care Bushel Girl Name Role Phone Unavailable Primary Care Provider [...]
== END 2025-01-15 11:09 | disposition home or self-care (01) ==
LOC: HO.HPS 10:39
PROVIDERS: PCP Internal Medicine; Visit Provider Hospitalist
DX: R06.09 Other forms of dyspnea (principal); J32.0 Chronic maxillary sinusitis; I25.10 Atherosclerotic heart disease of native coronary artery without angina pectoris; J45.40 Moderate persistent asthma, uncomplicated
CPT/HCPCS: 99214; G2211

== ENCOUNTER → 2025-01-15 10:38 | Outpatient (BNVA) | payer OTHER, SELFPAY | PROVIDERS: PCP Internal Medicine; Visit Provider Hospitalist | DX: R06.00 Dyspnea, unspecified (principal); J32.0 Chronic maxillary sinusitis; J45.40 Moderate persistent asthma, uncomplicated; I25.10 Atherosclerotic heart disease of native coronary artery without angina pectoris | CPT/HCPCS: 99212 ==

== ENCOUNTER 2025-02-02 06:50 | Outpatient (REF) | payer OTHER, SELFPAY ==
--- OUTSIDE RECORDS SUMMARY | 2025-02-02 06:52 | XMS_ITS | Clinical Summary ---
Author Organization [employer] Address [address] [facility] [address] [place] [address] Care Team Providers Care Post Graduate Internship Name Role Phone Unavailable Primary Care Provider [...]
[2025-02-02 07:03] LABS: MANUAL DIFF FLAG NO
[2025-02-02 07:19] LABS: Basophils Percent Auto 0.4 % (0-2); Eosinophils Absolute Auto 0.2 X10*3/uL (0.0-0.4); Eosinophils Percent Auto 2.7 % (0-4); Hematocrit 36.7 % (37.0-47.0); Hemoglobin 12.5 g/dl (12.0-16.0); Imm Gran Abs Auto 0.01 X10*3/uL (0.00-0.03); Imm Gran Pct Auto 0.1 % (0.0-0.4); Lymphocytes Absolute Auto 2.6 X10*3/uL (1.2-4.9); Lymphocytes Percent Auto 37.8 % (20-40); Mean Corpuscular HGB Conc 34.1 g/dl (31.0-35.0); Mean Corpuscular Hemoglobin 29.1 pg (27.0-33.0); Mean Corpuscular Volume 85.5 fL (80.0-98.0); Mean Platelet Volume 10.7 fL (9.4-12.3); Monocytes Absolute Auto 0.4 X10*3/uL (0.1-1.2); Monocytes Percent Auto 5.8 % (2-11); Neutrophils Absolute Auto 3.6 x10*3/uL (2.0-8.3); Neutrophils Percent Auto 53.2 % (45-73); Platelet Count 263 X10*3/uL (160-400); Red Blood Count 4.29 X10*6/uL (4.20-5.50); Red Cell Distribution Width 12.7 % (11.0-16.0); White Blood Count 6.8 X10*3/uL (4.8-10.8)
[2025-02-02 07:56] LABS: Erythrocyte Sedimentation Rate 16 MM/HR (0-20)
[2025-02-02 07:57] LABS: Alanine Aminotransferase 15 U/L (0-31); Albumin Level 4.2 g/dL (3.5-5.0); Alkaline Phosphatase 63 U/L (39-117); Anion Gap 12 (12-20); Aspartate Amino Transferase 19 U/L (5-31); Bilirubin Total 0.7 mg/dL (0.0-1.0); Blood Urea Nitrogen 13 mg/dL (9-16); Calcium 9.6 mg/dL (8.4-10.2); Carbon Dioxide 26 mmol/L (22-29); Chloride 105 mmol/L (96-108); Cholesterol 116 mg/dL (<200); Estimated Glomerular Filt Rate > 60; Glucose Fasting 127 mg/dL (60-99); HDL Cholesterol 52 mg/dL (>40); LDL Cholesterol Calculated 52 mg/dL (<100); Potassium 3.9 mmol/L (3.3-5.1); Sodium 139 mmol/L (135-145); Total Protein 7.1 g/dL (6.5-8.0); Triglycerides 64 mg/dL (<150)
[2025-02-02 08:15] LABS: Vitamin D 25-OH Total 44.2 ng/mL (>30)
[2025-02-02 08:21] LABS: Vitamin B12 587 pg/mL (200-900)
[2025-02-02 09:16] LABS: Creatinine Urine 57.14 mg/dL; Microalbum/Creatinine Ratio Ur 24.5 ug/mg cr (<30)
[2025-02-03 23:28] LABS: Immunoglobulin E 30 kU/L (<OR=114)
[2025-02-04 18:58] LABS: IgA 249 mg/dL (70-320); IgG 1034 mg/dL (600-1540); IgM 33 mg/dL (50-300)
[2025-02-08 06:13] LABS: Asperg fumigatus Precip Abs NEGATIVE (NEGATIVE); Micropoly faeni Abs NEGATIVE (NEGATIVE); Pigeon serum Abs NEGATIVE (NEGATIVE); Saccharo pora viridis Abs NEGATIVE (NEGATIVE); Thermo candidus Abs NEGATIVE (NEGATIVE); Thermoa vulgaris #1 NEGATIVE (NEGATIVE)
== END 2025-02-02 06:51 | disposition home or self-care (01) ==
LOC: HO.LAB 06:50
PROVIDERS: Absent Provider Hospitalist; PCP Internal Medicine; Visit Provider Internal Medicine
DX: E78.5 Hyperlipidemia, unspecified (principal); R80.9 Proteinuria, unspecified; E53.8 Deficiency of other specified B group vitamins; E55.9 Vitamin D deficiency, unspecified; J32.0 Chronic maxillary sinusitis; J45.909 Unspecified asthma, uncomplicated; R91.8 Other nonspecific abnormal finding of lung field
CPT/HCPCS: 36415; 80053; 80061; 82043; 82306; 82570; 82607; 82746; 82784; 82785; 85025; 85652; 86331; 86606; 86609

== ENCOUNTER 2025-02-03 14:55 | Outpatient (AMB) | payer OTHER, SELFPAY ==
[2025-02-03 15:16] VITALS: BP 120/72; BMI 25.5
--- NOTE | 2025-02-03 15:16 | A.OFFPC_ITS ---
Vital Signs 02/03/25 15:16 Height 5 ft 5 in Weight 153 lb BMI 25.5 BP 120/72 Blood Pressure Location Lt brachial Position Sitting Intake Visit Reasons: PE Intake Note: Patient here for a physical exam Hand Clipper Required: No Accompanied by: Self / Same As Patient Allergies atorvastatin [ATORVASTATIN] Adverse Reaction (Intermediate, Verified 02/03/25 15:38) MYALGIA, myalgias lisinopril [LISINOPRIL] Adverse Reaction (Intermediate, Verified 02/03/25 15:38) DIZZINESS, diziness januvia Adverse Reaction (Intermediate, Uncoded 02/03/25 15:38) abdominal discomfort Medication List - Last Reconciled 02/03/25 by Jolene Farah MD acetaminophen 1,000 mg (2 x 500 mg) PO QID PRN azelastine 2 sprays intranasal BID 30 days blood sugar diagnostic (FreeStyle Lite Strips) As directed blood sugar diagnostic (FreeStyle Lite Strips) As directed to test 3 times a day budesonide-formoterol 160-4.5 mcg/actuation 2 puffs inhalation BID 30 days cetirizine (Zyrtec) 10 mg PO DAILY 30 days empagliflozin (Jardiance) 25 mg PO DAILY 90 days flash glucose sensor (FreeStyle Bronson 14 Day Sensor kit) As directed fluticasone propionate 50 mcg/actuation 2 sprays intranasal DAILY 30 days insulin glargine 25 units (0.25 mL) subcut BEDTIME 90 days lancets 3 times a day metformin ER 1,000 mg (2 x 500 mg) PO BID 90 days montelukast (Singulair) 10 mg PO BEDTIME 30 days naproxen 500 mg PO Q12H PRN pen needle, diabetic (1st Tier Unifine Pentips) once a day [recliner As directed] rosuvastatin 10 mg PO DAILY 90 days Tobacco use date assessed: 02/03/25 Fall risk assessment: 1 Fall in past year Last assessed Fall Risk: 02/03/25 Dental Screening Dental Screen Date: 02/03/25 Did you have a dental visit in the last 12 months?: Yes Did you have a dental problem in the last 6 months where you did not have access to dental care?: No Was dental information given to patient?: Patient has dentist HPI HPI Comments History of Present Illness Details The patient is a 69-year-old female presenting for her annual physical examination. She reports a history of Diabetes Mellitus Type 2, currently followed by endocrinology with a recent A1c of 9.7. Her history includes hypertension, hyperlipidemia managed with rosuvastatin, and COPD with a pending specialist follow-up. She experienced a prior colonoscopy in March 2023 with poor bowel preparation, requiring a repeat within a year for thorough evaluation. In terms of allergy, she has statin-induced myopathy following atorvastatin use. Additionally, she has undergone myomectomy, cataract surgery, and tubal ligation. Her family history indicates paternal hypertension and maternal Alzheimer's disease. She denies tobacco or alcohol use. - Vaccinations: Pneumonia vaccine admini stered, Tetanus booster last year. - Screening: Colonoscopy in March 2023 wi th poor preparation; repeat recommended. Mammogram conducted last year. Bone density test performed. - Lifestyle: No smoking or alcohol use. 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 Diabetes type 2, uncontrolled Dyslipidemia Microalbuminuria Surgical History H/O colonoscopy Hx of myomectomy Hx of eye surgery Hx of tubal ligation Family History Father Hypertension Mother Diabetes Alzheimer disease Mental health disorder Maternal Grandmother Diabetes Social History Housing: Apartment Alcohol intake: never Patient Tobacco Use Status: Never used Tobacco e-Cigarette/Vaping Use: Never Used Second Hand Smoke Exposure: No service: No 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al status: disabled 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 1. Little interest or pleasure in doing things: nearly every day 2. Feeling down, depressed, or hopeless: not at all 3. Trouble falling or staying asleep, or sleeping too much: not at all 4. Feeling tired or having little energy: more than half the days 5. Poor appetite or overeating: more than half the days 6. Feeling bad about yourself - or that you are a failure or have let yourself or your family down: not at all 7. Trouble concentrating on things, such as reading the newspaper or watching television: not at all 8. Moving or speaking so slowly that other people could have noticed. Or the opposite - being so fidgety or restless that you have been moving around a lot more than usual: not at all 9. Thoughts that you would be better off or of hurting yourself in some way: not at all Total score: 7 Depression Screening Interpretation: Positive Depression Screening Follow-up: Existing condition and Follow-up Visit Requested Depression Screening Done: Yes 32542 - PHQ-9 Billing: Yes Source: Developed by Drs. Dano Fontaine, Vickie Holguin, Ross Perla and colleagues, with an educational baljit from [employer]. Thrive Questionnaire Date Thrive assessed: 02/03/25 I am a: Patient What is your living situation today?: I have a steady place to live Within the past 12 months, did the food you bought not last and you didn't have the money to get more?: Never true Within the past 12 months, did you worry whether your food would run out before you got money to buy more?: Never true Do you have trouble paying for medicines?: No Do you have trouble getting transportation to medical appointments?: No Do you have trouble paying your heating and electricity bill?: No Do you have trouble taking care of your child, family member or friend?: No Do you have trouble with day-to-day activities such as bathing, preparing meals, shopping, managing finances, etc.?: No Are you currently unemployed and looking for a job?: Yes Are you interested in more education?: No Please select the resources that you would like help with: None Currently or been in a relationship where the following occur: No concerns reported THRIVE Score: 0 AUDIT C Alcohol Use Questionnaire (AUDIT-C) 1. How often do you have a drink containing alcohol?: Never Total Score: 0 Score Reviewed/Action Taken: No YELENA-7 AMB Questionnaire YELENA-7 Date YELENA - 7 assessed: 02/03/25 Feeling nervous, anxious, or on edge: 0 = Not at all Not being able to stop or control worryin = Not at all Worrying too much about different things: 0 = Not at all Trouble relaxin = Not at all Being so restless that it is hard to sit still: 0 = Not at all Becoming easily annoyed or irritable: 0 = Not at all Feeling afraid as if something awful might happen: 0 = Not at all Total YELENA-7 score (0-4 normal; 5-9 mild; 10-14 moderate; 15-21 severe): 0 Source: Developed by Drs. Dano Fontaine, Vickie Holguin, Ross Perla and colleagues, with an educational baljit from [employer]. YELENA-7 Assessment Billing YELENA-7 Assessment Tool: YELENA-7 Assessment 00124 Review of Systems Const All systems reviewed & are unremarkable except as noted in HPI and below Card Denies chest pain at rest, Denies chest pain with activity, Denies edema, Denies irregular heart rhythm, Denies claudication, Denies dyspnea, Denies dyspnea on exertion, Denies orthopnea, Denies paroxysmal nocturnal dyspnea and Denies slow heart rate Resp Denies cough, Denies dyspnea and Denies dyspnea on exertion Physical exam (Primary Care) Vital Signs: Last Vital Signs BP 120/72 02/03/25 15:16 BMI result Body Mass Index 25.5 Tobacco/Smoking Status: Tobacco use Status Tobacco use date assessed 02/03/25 02/03/25 15:19 Patient Tobacco Use Status Never used Tobacco 02/03/25 15:19 e-Cigarette/Vaping Use Never Used 02/03/25 15:19 PHQ-9: PHQ-9 Score PHQ-9: Total score 7 02/03/25 15:45 Depression Screening Interpretation: Positive Depression Screening Follow-up: Existing condition and Follow-up Visit Requested Thrive Assessment: Date of Thrive Assessment Date Thrive assessed 02/03/25 02/03/25 15:19 Currently or been in a relationship where the following occur: No concerns reported HENNM Head: Yes normal to inspection, Yes normocephalic and Yes atraumatic Ears: external ears normal Eyes General: appearance normal, both eyes and all related structures Eyelids: Yes eyelids normal Conjunctivae: conjunctivae normal Neck Neck: Yes normal visual inspection and Yes supple Resp Effort & Inspection: normal respiratory effort Auscultation: clear to auscultation bilaterally Cardio Jugular venous distension: no JVD Rate: regular rate Rhythm: regular rhythm Heart sounds: S1 normal heart sound present and S2 normal heart sound present GI Inspection: Yes normal to inspection Palpation (GI): Soft to palpation and nontender Auscultation: normal bowel sounds Skin General skin exam: no rashes or lesions noted Neuro General: no focal motor deficits Extrem General: Yes full ROM Psych Appearance: grossly normal Results AMB Hemoglobin A1c AMB Hemoglobin A1c 9.7 % Last Edit by ASHLEY Carpenter on 02/03/25 15:2 5 Results Reviewed Results Reviewed: Laboratory Last Values Hgb A1c (Clinic) 9.7 % (4.0-6.0) H 02/03/25 15:19 Coding Level of Care Code Est Pt Level 3 (39275) Est Pt Prev Care >65y(27130) Diagnoses Physical exam Z00.00 Type 2 diabetes mellitus with hyperglycemia, with long-term current use of insulin E11.65; Z79.4 Diabetes mellitus type: type 2 Diabetes mellitus long term care phlebotomist insulin use: with care home use Diabetes mellitus complication status: with hyperglycemia alf (current) use of insulin Z79.4 Chronic obstructive pulmonary disease, unspecified COPD type J44.9 COPD type: unspecified COPD Chest pain R07.9 Age related osteoporosis M81.0 Additional Codes YELENA-7 Assessment Billing - YELENA-7 Assessment Tool: YELENA-7 Assessment 44792 ([id number]) PHQ-9 - 15513 - PHQ-9 Billing: Yes ([id number]) Time Spent (min) 33 Assessment & Plan Assessment & Plan (1) Physical exam: Code(s): Z00.00 - Encounter for general adult medical examination without abnormal findings Category: Medical (2) Diabetes mellitus: Code(s): E11.9 - Type 2 diabetes mellitus without complications Category: Medical Qualifiers: Diabetes mellitus type: type 2 Diabetes mellitus long term care phlebotomist insulin use: with long term care phlebotomist use Diabetes mellitus complication status: with hyperglycemia Qualified Code(s): E11.65 - Type 2 diabetes mellitus with hyperglycemia; Z79.4 - 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 project manager (current) use of insulin (3) alf (current) use of insulin: Code(s): Z79.4 - 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 project manager (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) use of insulin Category: Medical (4) COPD (chronic obstructive pulmonary disease): Code(s): J44.9 - Chronic obstructive pulmonary disease, unspecified Category: Medical Qualifiers: COPD type: unspecified COPD Qualified Code(s): J44.9 - Chronic obstructive pulmonary disease, unspecified (5) Chest pain: Code(s): R07.9 - Chest pain, unspecified Category: Medical (6) Age related osteoporosis: Code(s): M81.0 - Age-related osteoporosis without current pathological fracture Category: Medical Plan The plan for this visit focused on managing elevated A1c levels in diabetes with her current medication, continuous endocrinology follow-up, reassessment of her osteoporosis management, rosuvastatin continuation for hyperlipidemia due to atorvastatin intolerance, and planning for a repeat colonoscopy given prior inadequate preparation. The need for upcoming COPD specialist follow-up and comprehensive care considerations were emphasized. Patient was informed and verbally consented to the use of an ambient scribe for clinic note documentation during this visit. I discussed the patient's diabetes control, noting that follow-up with endocrinology is essential due to the current A1c level of 9.7. I explained the significance of rosuvastatin for her lipid management and her past reaction to atorvastatin. We reviewed her previous colonoscopy results, emphasizing the need for a repeat due to insufficient bowel preparation. For COPD management, consideration of her follow-up appointment with the specialist in [place] was discussed. I informed her of sending a new referral to endocrinology for osteoporosis. Possible chest pain evaluation was addressed with plans for an electrocardiogram. Orders: Orders AMB Hemoglobin A1c Today E11.65 - Type 2 diabetes mellitus with hyperglycemia, Z79.4 - alf (current) use of insulin ECG 12 lead EKG Today R07.9 - Chest pain, unspecified Microalbumin, Random (w Creat) 4 Months R80.9 - Proteinuria, unspecified Vitamin D 25-OH Total 4 Months E55.9 - Vitamin D deficiency, unspecified Comprehensive [place]. Panel Fast 4 Months R07.9 - Chest pain, unspecified Lipid Panel 4 Months E78.5 - Hyperlipidemia, unspecified Referrals Endocrinology Referral M81.0 - Age-related osteoporosis without current pathological fracture Patient Instructions: - Continue diabetes medications as directed. - Follow up with endocrinology for diabetes and osteoporosis management. - Schedule and prepare for a repeat colonoscopy. - Adhere to rosuvastatin for cholesterol management. - Arrange your missed COPD specialist follow-up. - Report any worsening symptoms, particularly chest pain, at the earliest.
--- OUTSIDE RECORDS SUMMARY | 2025-02-03 16:02 | XMS_ITS | Clinical Summary ---
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
== END 2025-02-03 15:53 | disposition home or self-care (01) ==
LOC: HO.HMCH 14:56
PROVIDERS: PCP Internal Medicine; Visit Provider Internal Medicine
DX: Z00.00 Encounter for general adult medical examination without abnormal findings (principal); R07.9 Chest pain, unspecified; E11.65 Type 2 diabetes mellitus with hyperglycemia; Z79.4 Long term (current) use of insulin; J44.9 Chronic obstructive pulmonary disease, unspecified; M81.0 Age-related osteoporosis without current pathological fracture

== ENCOUNTER → 2025-02-03 14:55 | Outpatient (BNVA) | payer OTHER, SELFPAY | PROVIDERS: PCP Internal Medicine; Visit Provider Internal Medicine | DX: Z00.00 Encounter for general adult medical examination without abnormal findings (principal); J44.9 Chronic obstructive pulmonary disease, unspecified; E11.65 Type 2 diabetes mellitus with hyperglycemia; I10 Essential (primary) hypertension; E78.5 Hyperlipidemia, unspecified; R07.9 Chest pain, unspecified; M81.0 Age-related osteoporosis without current pathological fracture; Z79.4 Long term (current) use of insulin; Z79.899 Other long term (current) drug therapy | CPT/HCPCS: 83036; 96127; 99212; 99397 ==

== ENCOUNTER 2025-02-10 11:59 | Outpatient (REF) | payer OTHER, SELFPAY ==
--- NOTE | ~2025-02-10 | XR_ITS ---
EXAMINATION: XR WRIST, LEFT CLINICAL INFORMATION: M25.532 - Pain in left wrist COMPARISON: -, 12/16/2024, 12/01/2024, 11/16/2024. TECHNIQUE: PA, lateral, and oblique views of the left wrist. FINDINGS: Redemonstration of healing comminuted, intra-articular distal radial fracture without significant displacement, and mild volar angulation. Fracture lines are continually less distinct, with increasing sclerosis and small amounts of bridging bony callus consistent with continued healing. No additional fracture evident. Carpal bones are intact and normally aligned. The ulna is intact. The ulnar styloid is intact. There is improving soft tissue swelling. XR/XR wrist LT min 3V IMPRESSION: Healing comminuted intra-articular minimally displaced distal radial fracture in stable alignment Electronically signed by: Pedro Arauz MD 02/10/2025 12:49 PM EDT
== END 2025-02-10 12:00 | disposition home or self-care (01) ==
LOC: HO.HOSX 11:59
PROVIDERS: PCP Internal Medicine; Visit Provider Orthopaedic Surgery
DX: M25.532 Pain in left wrist (principal); S52.502A Unspecified fracture of the lower end of left radius, initial encounter for closed fracture; E11.65 Type 2 diabetes mellitus with hyperglycemia; Z79.4 Long term (current) use of insulin
CPT/HCPCS: 73110; 99212

== ENCOUNTER 2025-02-10 11:59 | Outpatient (AMB) | payer OTHER, SELFPAY ==
--- NOTE | 2025-02-10 12:16 | A.OFFVIS_ITS ---
Vital Signs 02/10/25 12:17 Height 5 ft 5 in Weight 153 lb BMI 25.5 Intake Visit Reasons: OV-LT distal radius fx DOI 11/16/24-w/xr cast off Intake Note: Lisa 69 yr old female presents today for her follow up visit for her left distal radius fx DOI 11/16/24. States she is doing home exercises, continues to have limited ROM. Allergies atorvastatin [ATORVASTATIN] Adverse Reaction (Intermediate, Verified 02/10/25 12:20) MYALGIA, myalgias lisinopril [LISINOPRIL] Adverse Reaction (Intermediate, Verified 02/10/25 12:20) DIZZINESS, diziness januvia Adverse Reaction (Intermediate, Uncoded 02/10/25 12:20) abdominal discomfort HPI HPI OV-LT distal radius fx DOI 11/16/24-w/xr cast off: Details: Lisa is a 69 year old right hand dominant Diabetic Nepali speaking woman who returns for Follow up of her left distal radius fracture, S/P fall, DOI: 11/16/24. She says she is doing well, with only mild pain. She denies doing anything heavy in the last few weeks. She has been working on at-home ROM exercises She has been wearing her wrist splint like a cast, except for showering. She says her numbness has resolved and her sensation is now normal. She is currently out of work. She is a Diabetic, she has been working on improving her Diabetes management, and her HgA1c has come down from 12.4% to 9.7% on 02/03/25. 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 Diabetes type 2, uncontrolled Dyslipidemia Microalbuminuria Surgical History H/O colonoscopy Hx of myomectomy Hx of eye surgery Hx of tubal ligation Family History Father Hypertension Mother Diabetes Alzheimer disease Mental health disorder Maternal Grandmother Diabetes Social History Housing: Apartment Alcohol intake: never Patient Tobacco Use Status: Never used Tobacco e-Cigarette/Vaping Use: Never Used Second Hand Smoke Exposure: No service: No 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al status: disabled 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 Cognitive needs: No Hearing needs: No Vision needs: No Review of Systems Const All systems reviewed & are unremarkable except as noted in HPI and below Physical Exam Vital Signs: BMI result Body Mass Index 25.5 Const General: no acute distress and alert Orientation/consciousness: patient oriented x3 Neuro General: patient oriented x3 Extrem Other: Evaluation of Upper Extremity: The patient is alert, oriented, and in no acute distress Neuro: Median, Ulnar, Radial nerves motor and sensory intact and sensation is normal to the tips of all digits Vascular: Cap refill brisk ROM: She can make a tight fist with good strength & no pain Full & symmetrical pronosupination Extension: ~65 degrees Flexion: ~45 degrees Fracture site completely non-tender mild discomfort with wrist flexion no pain with wrist extension Radiographs: 3 views of the left wrist were taken and viewed by me today in clinic. They show a distal radius Volar thomas fracture with no further displacement seen compared to radiographs from 01/06/25 and no change in fracture alignment. There is some interval bony healing. Psych Appearance: grossly normal Affect: normal affect Attitude: cooperative Assessment & Plan Assessment & Plan (1) Closed fracture of left distal radius: Code(s): S52.502A - Unspecified fracture of the lower end of left radius, initial encounter for closed fracture Category: Medical (2) Diabetes mellitus: Code(s): E11.9 - Type 2 diabetes mellitus without complications Category: Medical Qualifiers: Diabetes mellitus complication status: with hyperglycemia Diabetes mellitus correction insulin use: with correction use Diabetes mellitus type: type 2 Qualified Code(s): E11.65 - Type 2 diabetes mellitus with hyperglycemia; Z79.4 - skilled nursing (current) use of insulin Plan Assessment & Plan: 1. Left distal radius fracture, intra-articular volar thomas fracture From a fall, DOI: 11/16/24 Seen in ED 11/16/24 First seen here 12/01/24, S/P injury With increased displacement since last visit, and interval bony healing 2. Left hand numbness In the median nerve distribution S/P fall, DOI: 2/10/25 Resolved We will continue to manage this non-operatively She is a poorly controlled diabetic, her most recent HgA1c was 9.7% on 02/03/25. This is improved from her prior result of 12.4% She has no pain unless she tries to force her wrist while in flexion I discussed the importance of activity modifications, she is to use her hand for light & medium weight activities, slowly increasing as tolerated for the next 4 weeks. She is to avoid any falls or heavy impact activities She will discontinue her wrist splint at this time. She should continue to wear this when out of the house or with heavy activities for the next 4 weeks. She will be sure to remove this while at home. She will continue to work on wrist ROM exercises at home . She will follow up prn Scribed for Diana Shoemaker MD by Ernie Zambrano, biomedical photographer, on 02/10/25 at 12:25 PM, EST. Orders: Orders XR wrist LT min 3V Today M25.532 - Pain in left wrist Coding Level of Care Code Global (85609) Diagnoses Closed fracture of left distal radius S52.502A Type 2 diabetes mellitus with hyperglycemia, with long-term current use of insulin E11.65; Z79.4 Diabetes mellitus complication status: with hyperglycemia Diabetes mellitus intermission coordinator insulin use: with correction use Diabetes mellitus type: type 2
[2025-02-10 12:17] VITALS: BMI 25.5
--- OUTSIDE RECORDS SUMMARY | 2025-02-10 13:16 | XMS_ITS | Clinical Summary ---
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
== END 2025-02-10 12:31 | disposition home or self-care (01) ==
LOC: HO.HOS 12:00
PROVIDERS: PCP Internal Medicine; Visit Provider Orthopaedic Surgery
DX: S52.502A Unspecified fracture of the lower end of left radius, initial encounter for closed fracture (principal); E11.65 Type 2 diabetes mellitus with hyperglycemia; Z79.4 Long term (current) use of insulin
CPT/HCPCS: 99024

== ENCOUNTER → 2025-02-10 12:10 | Outpatient (BNV) | payer OTHER, SELFPAY | PROVIDERS: PCP Internal Medicine; Visit Provider Radiology Diagnostic Radiology | DX: M25.532 Pain in left wrist (principal) | CPT/HCPCS: 73110 ==

== ENCOUNTER 2025-02-25 10:16 | Outpatient (AMB) | payer OTHER, SELFPAY ==
--- NOTE | 2025-02-25 10:33 | MHC.OFFVIS ---
Vital Signs 02/25/25 10:35 Height 5 ft 5 in Weight 156 lb 15.506 oz BMI 26.1 BP 130/58 L Blood Pressure Location Lt brachial Position Sitting Pulse 70 Pulse Source Pulse Oximeter Pulse Oximetry (%) 97 Oxygen Delivery Method Room Air Intake Visit Reasons: Osteoporosis Intake Note: New patient internally referred by PCP Dr. Guzman for Osteoporosis. Hardware Design Engineer Required: Yes Hardware Design Engineer Language: Call Or Contact Centre Manager Services: Hardware Design Engineer Present Hardware Design Engineer Name: Jolene CMI Information Interpreted: non-clinical & clinical Accompanied by: Self / Same As Patient Allergies atorvastatin [ATORVASTATIN] Adverse Reaction (Intermediate, Verified 02/25/25 10:35) MYALGIA, myalgias lisinopril [LISINOPRIL] Adverse Reaction (Intermediate, Verified 02/25/25 10:35) DIZZINESS, diziness januvia Adverse Reaction (Intermediate, Uncoded 02/25/25 10:35) abdominal discomfort Medication List - Last Reconciled 02/25/25 by Dano Gordon MD acetaminophen 1,000 mg (2 x 500 mg) PO QID PRN azelastine 2 sprays intranasal BID 30 days blood sugar diagnostic (FreeStyle Lite Strips) As directed blood sugar diagnostic (FreeStyle Lite Strips) As directed to test 3 times a day budesonide-formoterol 160-4.5 mcg/actuation 2 puffs inhalation BID 30 days cetirizine (Zyrtec) 10 mg PO DAILY 30 days empagliflozin (Jardiance) 25 mg PO DAILY 90 days flash glucose sensor (FreeStyle Bronson 14 Day Sensor kit) As directed fluticasone propionate 50 mcg/actuation 2 sprays intranasal DAILY 30 days insulin glargine 25 units (0.25 mL) subcut BEDTIME 90 days lancets 3 times a day metformin ER 1,000 mg (2 x 500 mg) PO BID 90 days montelukast (Singulair) 10 mg PO BEDTIME 30 days naproxen 500 mg PO Q12H PRN pen needle, diabetic (1st Tier Unifine Pentips) once a day [recliner As directed] rosuvastatin 10 mg PO DAILY 90 days HPI Comments Details: 69 YO Female with PMHx Type 2 DM is seen in consultation at the request of PCP for Osteoporosis. The patient is a 69-year-old female presenting with osteoporosis. The patient reports a recent fracture of the left wrist following a fall while walking to the pharmacy. The patient slipped and fell forward, landing on her left wrist. She has a history of a left knee fracture approximately four years ago under similar circumstances of a fall. In addition to these fractures, the patient has previously fractured her right toe. The patient's bone density scan indicates a mild to moderate degree of osteoporosis. She denies prior treatment for osteoporosis until now. . The patient had menarche at age 12, with regular menstrual cycles until menopause, reported as incomplete due to language barriers. There is no personal or family history of kidney stones or osteoporosis-related fractures. She currently does not engage in weightbearing exercises but takes medication for pain due to her back issues, specifically herniated discs. First diagnosed in mos a go . Not Received treatment in the past history of pathologic fracture of left wrist , L knee 4 yrs ago when fell from standing or ONJ. Has several servings of dietary calcium per day in the form of cheese, broccoli , fruit jiuces . Takes Calcium supplement [] mg daily in divided doses. Takes [] IU of Vitamin D daily. Denies ever using PPI, anticoagulant, antiepileptic or glucocorticoid medication. Not Does weight bearing exercise The patient currently does not participate in weightbearing exercise but is experiencing back pain attributed to herniated discs. Fracture history: L wrist , knee as above Height loss: No SPECIAL PROGRAMS DIRECTOR history: Menarache at age 12 yrs old- Menopause at age 58 - nl menses Denies history of Kidney stones: Denies family history of Osteoporosis or hip fracture. UTD on dental cleanings and sees dentist every 6 months. No planned upcoming dental work or extractions. No tabacco use or heavy ETOH abuse DXA dated 11/27/23:FINDINGS: LEFT FEMUR, NECK: BMD 0.759 g/cm2, Z-score -0.5, T-score -2.0, osteopenia. LEFT FEMUR, TOTAL: BMD 0.787 g/cm2, Z-score -0.5, T-score -1.8, osteopenia. AP SPINE L1-L4: BMD 0.834 g/cm2, Z-score -1.3, T-score -2.9, osteoporosis. IDENTIFIED RISK FACTORS: Menopause, history of fracture (adult), secondary osteoporosis (type 1 diabetes). HISTORY OF FRACTURE: Other. MEDICATIONS: None listed. MM/XR DEXA axial skeleton IMPRESSION: 1. DIAGNOSIS: Osteoporosis based on the lowest T-score value of -2.9 in the lumbar spine applying World Health Organization criteria. 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 Diabetes type 2, uncontrolled Dyslipidemia Microalbuminuria Surgical History H/O colonoscopy Hx of myomectomy Hx of eye surgery Hx of tubal ligation Family History Father Hypertension Mother Diabetes Alzheimer disease Mental health disorder Maternal Grandmother Diabetes Social History Housing: Apartment Alcohol intake: never Patient Tobacco Use Status: Never used Tobacco e-Cigarette/Vaping Use: Never Used Second Hand Smoke Exposure: No service: No 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al status: disabled 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 Cognitive needs: No Hearing needs: No Vision needs: No Physical Exam Vital Signs: Last Vital Signs Pulse 70 02/25/25 10:35 BP 130/58 L 02/25/25 10:35 Pulse Ox 97 02/25/25 10:35 Oxygen Delivery Method Room Air 02/25/25 10:35 BMI result Body Mass Index 26.1 There are no Cushingoid features. Absence of blue sclera. Absence of kyphosis. Thyroid gland is of nl size and weighs 15 gms. There are no thyroid nodules palpated. Lungs CTA. Heart S1 S2 Reg R/R Abdominal exam benign. Muscle strength 5/5 . Examination of spine reveals absence of tenderness on palpation Assessment & Plan Assessment & Plan (1) Osteoporosis: Code(s): M81.0 - Age-related osteoporosis without current pathological fracture Category: Medical Qualifiers: Osteoporosis type: age-related Presence of current pathological fracture: without current pathological fracture Qualified Code(s): M81.0 - Age-related osteoporosis without current pathological fracture Plan: This is a 69-year-old female with a history of osteoporosis and recent wrist fracture. Partial secondary workup has been performed Plan is to complete the secondary workup by checking a TSH, free T4, phosphorus, 24 hour urine for calcium and creatinine, urine immunofixation. We will ensure 1200 mg of calcium and vitamin D3 continued supplementation. Assuming secondary workup is negative would consider the use of anti resorptive agent like oral alendronate or intravenous bisphosphonate or Prolia. 1. Osteoporosis The patient is confirmed to have mild to moderate osteoporosis with a recent fracture history, warranting further investigation with blood and urine tests. Calcium and Vitamin D supplementation are recommended with ongoing monitoring; lifestyle modifications to prevent falls are vital. I discussed the osteoporosis diagnosis with the patient, advising her on calcium and vitamin D intake, including specific supplements to meet daily requirements. We reviewed the 24-hour urine collection procedure to confirm the diagnosis. I emphasized fall prevention strategies to avoid further fractures. For diabetes, I instructed the patient to follow up with her primary physician. We did not discuss specific medications for osteoporosis yet since we are awaiting lab results but considered weekly oral bisphosphonates or biannual injections pending follow-up. - Take a total of 1200 mg of calcium daily from diet and supplements. - Follow the 24-hour urine collection procedure provided. - Continue Vitamin D intake as prescribed. - Implement safety measures at home to prevent falls, such as installing handrails and keeping areas well-lit. - Contact your primary physician for diabetes management and prescription queries. - The patient had an opportunity to ask questions regarding treatment plan. The patient expressed understanding and agreement with the above treatment plan. Patient was informed and verbally consented to the use of an ambient scribe for clinic note documentation during this visit. Orders: Orders Free T4 (Free Thyroxine) Today M81.0 - Age-related osteoporosis without current pathological fracture Thyroid Stimulating Hormone Today M81.0 - Age-related osteoporosis without current pathological fracture Phosphorus Today M81.0 - Age-related osteoporosis without current pathological fracture Calcium, 24 Hr Ur Today M81.0 - Age-related osteoporosis without current pathological fracture Creatinine, 24 Hr Group Today M81.0 - Age-related osteoporosis without current pathological fracture Immunofixation, Random Urine Today M81.0 - Age-related osteoporosis without current pathological fracture Coding Level of Care Code New Pt Level 4 (17202) Diagnoses Age-related osteoporosis without current pathological fracture M81.0 Osteoporosis type: age-related Presence of current pathological fracture: without current pathological fracture
[2025-02-25 10:35] VITALS: BP 130/58; PULSE 70; O2SAT 97; BMI 26.1
--- OUTSIDE RECORDS SUMMARY | 2025-02-25 10:48 | XMS_ITS | Clinical Summary ---
Author Organization [employer] Address [address] [facility] [address] [place] [address] Care Team Providers Care Systems Programmer Name Role Phone Unavailable Primary Care Provider [...] patient's age to complete this topic Meningococcal B Vaccine Aged Out No l onger eligible based on patient's age to complete [...]
== END 2025-02-25 11:08 | disposition home or self-care (01) ==
LOC: HO.ENCR 10:19
PROVIDERS: PCP Internal Medicine; Visit Provider Internal Medicine Endocrinology, Diabetes & Metabolism
DX: M81.0 Age-related osteoporosis without current pathological fracture (principal)
CPT/HCPCS: 99204

== ENCOUNTER → 2025-02-25 10:16 | Outpatient (BNVA) | payer OTHER, SELFPAY | PROVIDERS: PCP Internal Medicine; Visit Provider Internal Medicine Endocrinology, Diabetes & Metabolism | DX: M81.0 Age-related osteoporosis without current pathological fracture (principal) | CPT/HCPCS: 99202 ==

== ENCOUNTER 2025-03-03 | Outpatient (REF) | payer OTHER, SELFPAY ==
[2025-03-04 11:41] LABS: Creatinine, mg/dL 71.67
[2025-03-04 11:55] LABS: Creatinine, 24Hr Urine 1.7 G/Day (1.0-2.0); Total Volume 24 Hour Urine 2400 mL
[2025-03-05 17:44] LABS: Calcium, 24 Hr Urine 62 mg/24 h; Calcium/Creatinine Ratio 36 mg/g creat (30-275); Creatinine 24Hr Urine 1.75 g/24 h (0.50-2.15)
== END 2025-03-03 00:01 | disposition home or self-care (01) ==
LOC: HO.LNP
PROVIDERS: Visit Provider Internal Medicine Endocrinology, Diabetes & Metabolism
DX: M81.0 Age-related osteoporosis without current pathological fracture (principal)
CPT/HCPCS: 82340; 82570

== ENCOUNTER 2025-03-04 07:27 | Outpatient (REF) | payer OTHER, SELFPAY ==
--- OUTSIDE RECORDS SUMMARY | 2025-03-04 07:29 | XMS_ITS | Clinical Summary ---
Author Organization [employer] Address [address] [facility] [address] [place] [address] Care Team Providers Care Dean Of Students Name Role Phone Unavailable Primary Care Provider [...]
[2025-03-04 10:27] LABS: Phosphorus 3.1 mg/dL (2.7-4.5)
[2025-03-04 10:46] LABS: Free T4 (Free Thyroxine) 0.96 ng/dL (0.71-1.85)
== END 2025-03-04 07:28 | disposition home or self-care (01) ==
LOC: HO.10HDL 07:27
PROVIDERS: Visit Provider Internal Medicine Endocrinology, Diabetes & Metabolism
DX: M81.0 Age-related osteoporosis without current pathological fracture (principal)
CPT/HCPCS: 36415; 84100; 84439; 84443

== ENCOUNTER 2025-06-03 10:10 | Outpatient (REF) | payer OTHER, SELFPAY ==
[2025-06-03 12:44] LABS: Alanine Aminotransferase 16 U/L (0-31); Albumin Level 4.3 g/dL (3.5-5.0); Alkaline Phosphatase 76 U/L (39-117); Anion Gap 14 (12-20); Aspartate Amino Transferase 22 U/L (5-31); Blood Urea Nitrogen 12 mg/dL (9-16); Calcium 9.5 mg/dL (8.4-10.2); Carbon Dioxide 29 mmol/L (22-29); Chloride 99 mmol/L (96-108); Cholesterol 210 mg/dL (<200); Estimated Glomerular Filt Rate > 60; HDL Cholesterol 49 mg/dL (>40); Potassium 3.8 mmol/L (3.3-5.1); Sodium 138 mmol/L (135-145); Total Protein 7.2 g/dL (6.5-8.0); Triglycerides 164 mg/dL (<150)
[2025-06-03 12:55] LABS: Microalbum/Creatinine Ratio Ur 19.1 ug/mg cr (<30)
== END 2025-06-03 10:11 | disposition home or self-care (01) ==
LOC: HO.LAB 10:10
PROVIDERS: PCP Internal Medicine; Visit Provider Internal Medicine Endocrinology, Diabetes & Metabolism
DX: M81.0 Age-related osteoporosis without current pathological fracture (principal); R80.9 Proteinuria, unspecified; E55.9 Vitamin D deficiency, unspecified; R07.9 Chest pain, unspecified; E78.5 Hyperlipidemia, unspecified; E11.9 Type 2 diabetes mellitus without complications; Z79.4 Long term (current) use of insulin; Z79.84 Long term (current) use of oral hypoglycemic drugs
CPT/HCPCS: 36415; 80053; 80061; 82043; 82306; 82570; 86335; 99212

== ENCOUNTER 2025-06-03 10:10 | Outpatient (AMB) | payer OTHER, SELFPAY ==
--- NOTE | 2025-06-03 10:16 | MHC.OFFVIS ---
Vital Signs 06/03/25 10:18 Height 5 ft 5.08 in Weight 152 lb 1.903 oz BMI 25.2 BP 110/62 Blood Pressure Location Rt brachial Position Sitting Pulse 84 Pulse Source Pulse Oximeter Pulse Oximetry (%) 96 Oxygen Delivery Method Room Air Intake Visit Reasons: f/u osteoporosis Intake Note: Patient present today for Osteoporosis follow up. Director Data Architecture Required: Yes Director Data Architecture Language: Sample Dye Mixer Services: Director Data Architecture Present Director Data Architecture Name: [facility] Juan Information Interpreted: non-clinical & clinical Accompanied by: Self / Same As Patient Allergies atorvastatin (ATORVASTATIN) Adverse Reaction (Intermediate, Verified 06/03/25 10:21) MYALGIA, myalgias lisinopril (LISINOPRIL) Adverse Reaction (Intermediate, Verified 06/03/25 10:21) DIZZINESS, diziness januvia Adverse Reaction (Intermediate, Uncoded 06/03/25 10:21) abdominal discomfort Medication List - Last Reconciled 06/03/25 by Dano Gordon MD acetaminophen 1,000 mg (2 x 500 mg) PO QID PRN azelastine 2 sprays intranasal BID blood sugar diagnostic (FreeStyle Lite Strips) As directed blood sugar diagnostic (FreeStyle Lite Strips) As directed to test 3 times a day budesonide-formoterol 160-4.5 mcg/actuation 2 puffs inhalation BID 30 days cetirizine (Zyrtec) 10 mg PO DAILY 30 days empagliflozin (Jardiance) 25 mg PO DAILY 90 days flash glucose sensor (FreeStyle Bronson 14 Day Sensor kit) As directed fluticasone propionate 50 mcg/actuation 2 sprays intranasal DAILY 30 days insulin glargine 25 units (0.25 mL) subcut BEDTIME 90 days lancets 3 times a day metformin ER 1,000 mg (2 x 500 mg) PO BID 90 days montelukast (Singulair) 10 mg PO BEDTIME 30 days naproxen 500 mg PO Q12H PRN pen needle, diabetic (1st Tier Unifine Pentips) once a day [recliner As directed] rosuvastatin 10 mg PO DAILY 90 days HPI Comments Details: 69 YO Female with PMHx Type 2 DM is seen in consultation at the request of PCP for Osteoporosis. The patient is a 69-year-old female presenting with osteoporosis. The patient reports a recent fracture of the left wrist following a fall while walking to the pharmacy. The patient slipped and fell forward, landing on her left wrist. She has a history of a left knee fracture approximately four years ago under similar circumstances of a fall. In addition to these fractures, the patient has previously fractured her right toe. The patient's bone density scan indicates a mild to moderate degree of osteoporosis. She denies prior treatment for osteoporosis until now. . The patient had menarche at age 12, with regular menstrual cycles until menopause, reported as incomplete due to language barriers. There is no personal or family history of kidney stones or osteoporosis-related fractures. She currently does not engage in weightbearing exercises but takes medication for pain due to her back issues, specifically herniated discs. First diagnosed in mos a go . Not Received treatment in the past history of pathologic fracture of left wrist , L knee 4 yrs ago when fell from standing or ONJ. Has several servings of dietary calcium per day in the form of cheese, broccoli , fruit jiuces . Takes Calcium supplement [] mg daily in divided doses. Takes [] IU of Vitamin D daily. Denies ever using PPI, anticoagulant, antiepileptic or glucocorticoid medication. Not Does weight bearing exercise The patient currently does not participate in weightbearing exercise but is experiencing back pain attributed to herniated discs. Fracture history: L wrist , knee as above Height loss: No RN IV THERAPY history: Menarache at age 12 yrs old- Menopause at age 58 - nl menses Denies history of Kidney stones: Denies family history of Osteoporosis or hip fracture. UTD on dental cleanings and sees dentist every 6 months. No planned upcoming dental work or extractions. No tabacco use or heavy ETOH abuse DXA dated 11/27/23:FINDINGS: LEFT FEMUR, NECK: BMD 0.759 g/cm2, Z-score -0.5, T-score -2.0, osteopenia. LEFT FEMUR, TOTAL: BMD 0.787 g/cm2, Z-score -0.5, T-score -1.8, osteopenia. AP SPINE L1-L4: BMD 0.834 g/cm2, Z-score -1.3, T-score -2.9, osteoporosis. IDENTIFIED RISK FACTORS: Menopause, history of fracture (adult), secondary osteoporosis (type 1 diabetes). HISTORY OF FRACTURE: Other. MEDICATIONS: None listed. MM/XR DEXA axial skeleton IMPRESSION: 1. DIAGNOSIS: Osteoporosis based on the lowest T-score value of -2.9 in the lumbar spine applying World Health Organization criteria. 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 Diabetes type 2, uncontrolled Dyslipidemia Microalbuminuria Surgical History H/O colonoscopy Hx of myomectomy Hx of eye surgery Hx of tubal ligation Family History Father Hypertension Mother Diabetes Alzheimer disease Mental health disorder Maternal Grandmother Diabetes Social History Housing: Apartment Alcohol intake: never Patient Tobacco Use Status: Never used Tobacco e-Cigarette/Vaping Use: Never Used Second Hand Smoke Exposure: No service: No 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al status: disabled 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 Cognitive needs: No Hearing needs: No Vision needs: No Physical Exam Vital Signs: Last Vital Signs Pulse 84 06/03/25 10:18 BP 110/62 06/03/25 10:18 Pulse Ox 96 06/03/25 10:18 Oxygen Delivery Method Room Air 06/03/25 10:18 BMI result Body Mass Index 25.2 Assessment & Plan Assessment & Plan (1) Osteoporosis: Code(s): M81.0 - Age-related osteoporosis without current pathological fracture Category: Medical Qualifiers: Osteoporosis type: age-related Presence of current pathological fracture: without current pathological fracture Qualified Code(s): M81.0 - Age-related osteoporosis without current pathological fracture Plan: This is a 69-year-old female with a history of osteoporosis and recent wrist fracture. Partial secondary workup has been performed Plan is to complete the secondary workup by checking a urine immunofixation We will ensure 1200 mg of calcium and vitamin D3 continued supplementation. We will talk to patient aboutr the use of anti resorptive agent like oral alendronate or intravenous bisphosphonate or Prolia. After a careful discussion with the patient we decided to go with alendronate 70 mg Q weekly. Went over the proper administration of alendronate also went through side effects of alendronate including but not limited to rare risk of osteonecrosis of the jaw and atypical femur fracture. This was done through a mobile application development lead. We will check urine NTX in 6 months' time prior to return appointment Orders: Orders Collagen Crosslinks NTX 5 Months M81.0 - Age-related osteoporosis without current pathological fracture Medications: New alendronate 70 mg PO QWEEK 5 tabs 5RF Coding Level of Care Code Est Pt Level 3 (65535) Diagnoses Age-related osteoporosis without current pathological fracture M81.0 Osteoporosis type: age-related Presence of current pathological fracture: without current pathological fracture
[2025-06-03 10:18] VITALS: BP 110/62; PULSE 84; O2SAT 96; BMI 25.2
--- OUTSIDE RECORDS SUMMARY | 2025-06-03 11:28 | XMS_ITS | Clinical Summary ---
Author Organization [employer] Address [address] [facility] [address] [place] [address] Care Team Providers Care Project Controls Scheduler Name Role Phone Unavailable Primary Care Provider [...] Vaccines (1 of 2) 2006 COVID-19 Vaccine (1 - 2023-2 5 season) 2024 Influenza Vaccine (#1) 2025 RSV Patients and Pa tients Aged 60 [...]
== END 2025-06-03 11:07 | disposition home or self-care (01) ==
LOC: HO.ENCR 10:11
PROVIDERS: PCP Internal Medicine; Visit Provider Internal Medicine Endocrinology, Diabetes & Metabolism
DX: M81.0 Age-related osteoporosis without current pathological fracture (principal)
CPT/HCPCS: 99213

== ENCOUNTER 2025-06-30 13:56 | Outpatient (REF) | payer OTHER, SELFPAY ==
--- NOTE | ~2025-06-30 | MM_ITS ---
EXAMINATION: MM SCREENING DIGITAL BREAST TOMOSYNTHESIS, BILATERAL CLINICAL INFORMATION: Screening. Asymptomatic. COMPARISON: Comparison made to multiple prior, most recent June 24, 2024, and most remote October 30, 2013. TECHNIQUE: Digital breast tomosynthesis is performed in mediolateral oblique and craniocaudal views along with computer-aided detection (CAD). Synthesized 2D images are generated from the tomosynthesis. FINDINGS: BREAST COMPOSITION: The breasts are heterogeneously dense, which may obscure small masses. BILATERAL BREASTS: No significant masses, suspicious calcifications or other abnormalities are seen in either breast. MM/MM tomosynthesis screening BI IMPRESSION: BILATERAL BREASTS: Negative, no mammographic evidence of malignancy. Normal interval follow-up is recommended in 12 months. ASSESSMENT: BI-RADS: Category 1: Negative RECOMMENDATION: Routine annual mammography screening. FOLLOW-UP: 1 year F/U This examination should not preclude the clinical evaluation of a suspicious palpable abnormality. This patient's information was entered into a reminder system with a target due date for their next mammogram. Electronically signed by: Alicia Kennedy MD 07/02/2025 06:58 PM EDT
--- OUTSIDE RECORDS SUMMARY | 2025-06-30 16:27 | XMS_ITS | Clinical Summary ---
Author Organization [employer] Address [address] [facility] [facility] [address] [place] [address] Care Team Providers Care Retail Loss Prevention Investigator Name Role Phone Unavailable Primary Care Provider [...] COVID-19 Vaccine (1 - 2023-2 5 season) 2025 Influenza Vaccine (#1) 2025 RSV Patients and [...]
== END 2025-06-30 13:57 | disposition home or self-care (01) ==
LOC: HO.MAMMO 13:56
PROVIDERS: PCP Internal Medicine; Visit Provider Internal Medicine
DX: Z12.31 Encounter for screening mammogram for malignant neoplasm of breast (principal)
CPT/HCPCS: 77063; 77067

== ENCOUNTER → 2025-06-30 14:15 | Outpatient (BNV) | payer OTHER, SELFPAY | PROVIDERS: PCP Internal Medicine; Visit Provider Radiology Body Imaging | DX: Z12.31 Encounter for screening mammogram for malignant neoplasm of breast (principal) | CPT/HCPCS: 77063; 77067 ==

== ENCOUNTER 2025-08-04 10:55 | Outpatient (AMB) | payer OTHER, SELFPAY ==
--- NOTE | 2025-08-04 10:57 | A.OFFPC_ITS ---
Vital Signs 08/04/25 10:58 Height 5 ft 5 in Weight 152 lb 6 oz BMI 25.4 BP 130/80 Blood Pressure Location Lt brachial Position Sitting Pulse 78 Pulse Source Pulse Oximeter Pulse Oximetry (%) 97 Oxygen Delivery Method Room Air Intake Visit Reasons: follow up A1C Dam Tender Assistant Required: No Accompanied by: Self / Same As Patient Allergies atorvastatin (ATORVASTATIN) Adverse Reaction (Intermediate, Verified 08/04/25 11:31) MYALGIA, myalgias lisinopril (LISINOPRIL) Adverse Reaction (Intermediate, Verified 08/04/25 11:31) DIZZINESS, diziness januvia Adverse Reaction (Intermediate, Uncoded 08/04/25 11:31) abdominal discomfort Medication List - Last Reconciled 08/04/25 by Jolene Farah MD acetaminophen 1,000 mg (2 x 500 mg) PO QID PRN alendronate 70 mg PO QWEEK azelastine 2 sprays intranasal BID blood sugar diagnostic (FreeStyle Lite Strips) As directed blood sugar diagnostic (FreeStyle Lite Strips) As directed to test 3 times a day budesonide-formoterol 160-4.5 mcg/actuation 2 puffs inhalation BID 30 days cetirizine (Zyrtec) 10 mg PO DAILY 30 days empagliflozin (Jardiance) 25 mg PO DAILY 90 days flash glucose sensor (FreeStyle Bronson 14 Day Sensor kit) As directed fluticasone propionate 50 mcg/actuation 2 sprays intranasal DAILY 30 days insulin glargine 25 units (0.25 mL) subcut BEDTIME 90 days lancets 3 times a day metformin ER 1,000 mg (2 x 500 mg) PO BID 90 days montelukast (Singulair) 10 mg PO BEDTIME 30 days naproxen 500 mg PO Q12H PRN pen needle, diabetic (1st Tier Unifine Pentips) once a day [recliner As directed] rosuvastatin 10 mg PO DAILY 90 days Tobacco use date assessed: 08/04/25 Fall risk assessment: 2 + Falls in past year Last assessed Fall Risk: 08/04/25 Dental Screening Dental Screen Date: 08/04/25 Did you have a dental visit in the last 12 months?: Yes Did you have a dental problem in the last 6 months where you did not have access to dental care?: No Was dental information given to patient?: Patient has dentist HPI HPI Comments History of Present Illness Details The patient is a 69-year-old female presenting for management of her chronic conditions. The patient was diagnosed with diabetes in 2010. She was initially started on insulin and later had metformin added to her regimen. Although the patient believes she has type 1 diabetes, her use of oral medication suggests type 2 diabetes. Her HbA1c has improved from 9.1% to 8.7%. Her current medications for diabetes include Lantus 25 units once daily, metformin, and Jardiance 25 mg daily. She has osteoporosis from a DEXA scan and follows with endocrinology for that matter. On alendronate once a week and reports no side effects. The patient's LDL cholesterol was noted to be elevated in May, and she is tolerating rosuvastatin 10 mg well. She has a history of COPD which is managed by a roto mixer operator and is well-controlled with a daily budesonide/formoterol inhaler. She is also followed by endocrinology for osteoporosis. The patient uses Zyrtec for allergies. She presently denies any chest pain or shortness of air. [facility] Medical History Asthma Numbness and tingling in left hand Coronary artery calcification Sinusitis Dyspnea Blurry vision Right hip pain B12 deficiency [facility] (current) use of insulin Diabetes type 2, uncontrolled Dyslipidemia Microalbuminuria Surgical History H/O colonoscopy Hx of myomectomy Hx of eye surgery Hx of tubal ligation Family History Father Hypertension Mother Diabetes Alzheimer disease Mental health disorder Maternal Grandmother Diabetes Social History Housing: Apartment Alcohol intake: never Patient Tobacco Use Status: Never used Tobacco e-Cigarette/Vaping Use: Never Used Second Hand Smoke Exposure: No service: No 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al status: disabled 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 Cognitive needs: No Hearing needs: No Vision needs: No Questionnaire Thrive Questionnaire Date Thrive assessed: 02/03/25 I am a: Patient What is your living situation today?: I have a steady place to live Within the past 12 months, did the food you bought not last and you didn't have the money to get more?: Never true Within the past 12 months, did you worry whether your food would run out before you got money to buy more?: Never true Do you have trouble paying for medicines?: No Do you have trouble getting transportation to medical appointments?: No Do you have trouble paying your heating and electricity bill?: No Do you have trouble taking care of your child, family member or friend?: No Do you have trouble with day-to-day activities such as bathing, preparing meals, shopping, managing finances, etc.?: No Are you currently unemployed and looking for a job?: Yes Are you interested in more education?: No Please select the resources that you would like help with: None Currently or been in a relationship where the following occur: No concerns reported THRIVE Score: 0 AUDIT C Alcohol Use Questionnaire (AUDIT-C) 1. How often do you have a drink containing alcohol?: Never 3. How often do you have six or more drinks on one occasion?: Never Total Score: 0 Score Reviewed/Action Taken: No YELENA-7 AMB Questionnaire YELENA-7 Date YELENA - 7 assessed: 02/03/25 Source: Developed by Drs. Dano Fontaine, Vickie Holguin, Ross Perla and colleagues, with an educational baljit from [employer]. Review of Systems Const All systems reviewed & are unremarkable except as noted in HPI and below Card Denies chest pain at rest, Denies chest pain with activity, Denies edema, Denies irregular heart rhythm, Denies claudication, Denies dyspnea, Denies dyspnea on exertion, Denies orthopnea, Denies paroxysmal nocturnal dyspnea and Denies slow heart rate Resp Denies cough, Denies dyspnea and Denies dyspnea on exertion GI Denies abdominal pain, Denies change in bowel habits, Denies excessive flatus, Denies nausea and Denies vomiting Neuro Denies lack of coordination Physical exam (Primary Care) Vital Signs: Last Vital Signs Pulse 78 08/04/25 10:58 BP 130/80 08/04/25 10:58 Pulse Ox 97 08/04/25 10:58 Oxygen Delivery Method Room Air 08/04/25 10:58 BMI result Body Mass Index 25.4 Tobacco/Smoking Status: Tobacco use Status Tobacco use date assessed 08/04/25 08/04/25 11:07 Patient Tobacco Use Status Never used Tobacco 08/04/25 10:58 e-Cigarette/Vaping Use Never Used 08/04/25 10:58 Thrive Assessment: Date of Thrive Assessment Date Thrive assessed 02/03/25 08/04/25 10:58 Currently or been in a relationship where the following occur: No concerns rep orted Resp Effort & Inspection: normal respiratory effort Auscultation: clear to auscultation bilaterally Cardio Jugular venous distension: no JVD Rate: regular rate Rhythm: regular rhythm Heart sounds: S1 normal heart sound present and S2 normal heart sound present Extrem General: Yes full ROM Results AMB Hemoglobin A1c AMB Hemoglobin A1c 8.7 % Last Edit by ASHLEY Cohn on 08/04/25 11 :33 Coding Level of Care Code Est Pt Level 4 (14648) Complex EM visit Add On G2211 Diagnoses Type 2 diabetes mellitus with hyperglycemia, with long-term current use of insulin E11.65; Z79.4 Diabetes mellitus type: type 2 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: with [facility]p use Diabetes mellitus complication status: with hyperglycemia Age related osteoporosis M81.0 Chronic obstructive pulmonary disease, unspecified COPD type J44.9 COPD type: unspecified COPD Dyslipidemia E78.5 Time Spent (min) 25 Assessment & Plan Assessment & Plan (1) Diabetes mellitus: Code(s): E11.9 - Type 2 diabetes mellitus without complications Category: Medical Qualifiers: Diabetes mellitus type: type 2 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: with mcfp use Diabetes mellitus complication status: with hyperglycemia Qualified Code(s): E11.65 - Type 2 diabetes mellitus with hyperglycemia; Z79.4 - [facility] (current) use of insulin (2) Age related osteoporosis: Code(s): M81.0 - Age-related osteoporosis without current pathological fracture Category: Medical (3) COPD (chronic obstructive pulmonary disease): Code(s): J44.9 - Chronic obstructive pulmonary disease, unspecified Category: Medical Qualifiers: COPD type: unspecified COPD Qualified Code(s): J44.9 - Chronic obstructive pulmonary disease, unspecified (4) Dyslipidemia: Code(s): E78.5 - Hyperlipidemia, unspecified Category: Medical Plan Plan 1. Type 2 Diabetes Mellitus The patient reports a history of type 1 diabetes, but her current regimen of both insulin and metformin is more indicative of type 2 diabetes. Her HbA1c has shown improvement from 9.1% to 8.2%. To clarify the diagnosis, labs including diabetes antibody testing will be ordered. No changes will be made to her current medications, which include Lantus, metformin, and Jardiance. She will follow up in 4 months to review the results. 2. Hyperlipidemia The patient's LDL cholesterol was elevated on labs from May. She is coreen erating rosuvastatin 10 mg well. We will continue the current dose of rosuvastatin 10 mg and recheck her lipid panel in 4 months. 3. Chronic Obstructive Pulmonary Disease The patient's COPD is stable and well-controlled with a daily budesonide/formoterol inhaler. She follows with her roto mixer operator for this condition. No changes will be made to her regimen at this visit. 4. Osteoporosis The patient is followed by an call center operator for osteoporosis. A prescription was not filled by her pharmacy, so it will be resent to the [facility] on [facility]. She will continue to follow up with endocrinology for management. Orders: Orders Vitamin B12 and Folate 4 Months E53.8 - Deficiency of other specified B group vitamins Comprehensive Celestine. Panel Fast 4 Months E11.65 - Type 2 diabetes mellitus with hyperglycemia, Z79.4 - middle or 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 school principal (current) use of insulin AMB Hemoglobin A1c Today Z13.9 - Encounter for screening, unspecified Lipid Panel 4 Months E78.5 - Hyperlipidemia, unspecified Microalbumin, Random (w Creat) 4 Months R80.9 - Proteinuria, unspecified Vitamin D 25-OH Total 4 Months E55.9 - Vitamin D deficiency, unspecified Glutamic acid decarboxylase Ab 4 Months E11.65 - Type 2 diabetes mellitus with hyperglycemia, Z79.4 - middle or 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 school principal (current) use of insulin Insulin Auto Antibody 4 Months E11.65 - Type 2 diabetes mellitus with hyperglycemia, Z79.4 - 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
[2025-08-04 10:58] VITALS: BP 130/80; PULSE 78; O2SAT 97; BMI 25.4
--- OUTSIDE RECORDS SUMMARY | 2025-08-04 13:48 | XMS_ITS | Clinical Summary ---
Author Organization [employer] Address [address] [place] [address] Care Team Providers Care Underwriting Sales Representative Name Role Phone Unavailable Primary Care Provider [...]
== END 2025-08-04 11:48 | disposition home or self-care (01) ==
LOC: HO.HMCH 10:56
PROVIDERS: PCP Internal Medicine; Visit Provider Internal Medicine
DX: E11.65 Type 2 diabetes mellitus with hyperglycemia (principal); Z79.4 Long term (current) use of insulin; M81.0 Age-related osteoporosis without current pathological fracture; J44.9 Chronic obstructive pulmonary disease, unspecified; E78.5 Hyperlipidemia, unspecified; Z13.9 Encounter for screening, unspecified

== ENCOUNTER → 2025-08-04 10:55 | Outpatient (BNVA) | payer OTHER, SELFPAY | PROVIDERS: PCP Internal Medicine; Visit Provider Internal Medicine | DX: E11.65 Type 2 diabetes mellitus with hyperglycemia (principal); M81.0 Age-related osteoporosis without current pathological fracture; J44.9 Chronic obstructive pulmonary disease, unspecified; E78.5 Hyperlipidemia, unspecified; Z79.4 Long term (current) use of insulin; Z79.84 Long term (current) use of oral hypoglycemic drugs; Z79.899 Other long term (current) drug therapy | CPT/HCPCS: 83036; 99212 ==